=== PATIENT | male | born 1950 | race Caucasian/White ===

== ENCOUNTER 2025-02-06 07:39 | Inpatient (IN) | payer MEDICARE, SELFPAY ==
[2025-02-06] VITALS (21 sets, daily range): BP systolic 164–190; BP diastolic 60–84; PULSE 66–89; RESP 10–22; TEMP 35.9–36.7; O2SAT 96–100; BMI 23.3
--- NOTE | ~2025-02-06 | XR_ITS ---
EXAMINATION: XR chest 1V portable 02/06/2025 14:16 INDICATION: Right lower rib pain PROCEDURE: AP portable chest COMPARISON: No prior studies for comparison. FINDINGS: The lungs are clear. The cardiomediastinal silhouette is within normal limits. There are no pleural effusions. There is no pneumothorax suspected. IMPRESSION: 1: NO ACUTE CARDIOPULMONARY DISEASE. Reviewed, dictated and finalized at location B.
--- NOTE | ~2025-02-06 | XR_ITS ---
XR abdomen/kub 1V 02/10/2025 10:19 Indication: Constipation Procedure: KUB Comparison: No prior studies for comparison. Findings: Moderate colonic fecal loading. Nonobstructive bowel gas pattern. Lung bases unremarkable. No abnormal calcifications. Severe lumbar spondylosis with levoscoliosis. Impression: 1: Fecal impaction of the colon. Reviewed, dictated and finalized at location A. Impression: 1: Fecal impaction of the colon.
--- NOTE | ~2025-02-06 | XR_ITS ---
Exam: Abdomen 1V HISTORY: Constipation COMPARISON: 02/10/2025. Reference is also made to a CT examination of the abdomen and pelvis dated 01/16 TECHNIQUE: Supine images of the abdomen FINDINGS: Multiple loops of dilated colon are identified with mural thickening. Fecal stasis is identified within the descending colon. Air is identified within the rectum. Bowel gas pattern is otherwise nonspecific and non-obstructive. There is no free air or deep sulci. No pathologic calcifications are seen. IMPRESSION: Nonspecific, nonobstructive bowel gas pattern with mural thickening and fecal stasis in the colon. Reviewed, dictated and finalized at location A. IMPRESSION: Nonspecific, nonobstructive bowel gas pattern with mural thickening and fecal s tasis in the colon.
--- NOTE | ~2025-02-06 | XR_ITS ---
EXAMINATION: XR_ENEMABAC_CR DATE: 02/13/2025 11:41 INDICATION: Incomplete colonoscopy. Constipation. TECHNIQUE: A chief credit officer radiograph was obtained. A catheter was inserted into the patient's rectum. Contra st was infused by gravity. Gas was infused by hand pump. Fluoroscopic spot images and conventional ra diographs were obtained. Fluoroscopy exposure time was 3.6 minutes. A total of 60 fluoroscopic images and 19 overhead radiographs were obtained. Total DAP was 108 Gycm^2. COMPARISON: CT dated 02/06/2025 FINDINGS: There is prominent redundancy of the colon with significant tortuosity along the sigmoid, transverse and descending colon. This results in a large amount amount of residual contrast in the colon and sub optimal opacification of the cecum on the earlier images. There is also small amount of residual fecu lent material within the cecum. No strictures, diverticula, polyps or other mucosal irregularities id entified. Although the current study is mildly limited due to technical reasons as detailed above, im aging from prior CT demonstrates distention of the colon proximal to the sigmoid colon by relatively low density stool particularly at the cecum along the good assessment of the colonic wall thickness w hich appears uniformly thin with no soft tissue density polypoid lesions identified particularly in t he region most limited in the current study. IMPRESSION: 1. Significant redundancy of the otherwise normal-appearing colon which demonstrates a tortuous cours e. Specifically no strictures, diverticula, polyps or other mucosal irregularities identified. Reviewed, dictated and finalized at location A. IMPRESSION: 1. Significant redundancy of the otherwise normal-appearing colon which demonst rates a tortuous course. Specifically no strictures, diverticula, polyps or oth er mucosal irregularities identified.
--- NOTE | ~2025-02-06 | CT_ITS ---
EXAMINATION: CT abdomen pelvis w con DATE: 02/06/2025 09:10 INDICATION: Right flank pain TECHNIQUE: Computed tomography (CT) of the abdomen and pelvis was performed with 100 mL Omnipaque-350 intravenous contrast. Automated exposure control and iterative reconstruction technique were employe d. The dose-length product was 491.76 mGy-cm. COMPARISON: None FINDINGS: Lung bases are clear. Heart size is normal. No pericardial or pleural effusion. Small sliding-type hi atal hernia. Liver, gallbladder, spleen, pancreas, bilateral adrenal glands and right kidney are norm al. 12 mm cyst in the left kidney. Large amount of stool throughout the colon most prominent at the c ecum suggestive of constipation. No dilated bowel to suggest obstruction. Bladder diverticulum which could relate to chronic outlet obstruction from the enlarged prostate. No free intraperitoneal gas or fluid. No pathologically enlarged abdominal or pelvic lymphadenopathy. Mild lumbar levoscoliosis wit h severe spondylosis. IMPRESSION: 1. Large amount of colonic stool particularly at the cecum consistent with constipation. No other acu te intra-abdominal/pelvic process. 2. Small sliding-type hiatal hernia. 2. Bladder diverticulum which may be secondary to chronic outlet obstruction from the enlarged prosta te. Reviewed, dictated and finalized at location A. IMPRESSION: 1. Large amount of colonic stool particularly at the cecum consistent with cons tipation. No other acute intra-abdominal/pelvic process. 2. Small sliding-type hiatal hernia. 2. Bladder diverticulum which may be secondary to chronic outlet obstruction fr om the enlarged prostate.
--- OUTSIDE RECORDS SUMMARY | 2025-02-06 07:42 | XMS_ITS | Clinical Summary ---
Author Organization [facility] Address [address] [facility] [place] [address] Care Team Providers Care Sulfonator Operator Name Role Phone Unavailable Primary Care Provider Unavailabl e Source Comments [facility],non-owned Affiliates and Associated Physician Practices is amultiple site organization consisting of ambulatory clinics and hospital sitesin [place], [place], [place] and [place]. This disclosure is being madepursuant to the Care Everywhere program and may not contain all information available regarding this patient. 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 Gender Identity Not on file Sexual Orientation Not on file Plan of Treatment Health Maintenance Due Date Last Done Comments COLOGUARD (AGES 45-75) - COL ON CA SCREENING 1949 COLON MONITORING 1949 COLONOSCOPY - COLON CA SCREENING 1949 CT COLONOGRAPHY - COLON CA SCREENING 1950 Colorectal Cancer Screening 1950 FIT - COLON CA SCREENING 1949 FLEX SIG - COLON CA SCREENING 1949 LIPID TESTING 1950 HEPATITIS C SCREENING 11/13/1967 DTAP/TDAP/TD VACCINES (1 - Tdap) 1968 PNEUMOCOCCAL VACCINE 50+ (1 of 1 - PCV) 11/18/1999 ZOSTER VACCINE (1 of 2) 11/18/1999 COVID-19 VACCINE ( - 2023-2 5 season) 2024 DEPRESSION SCREENING 09/17/2024 Respiratory Syncytial Virus (RSV) Vaccine Pt: or over 60 yrs (1 - 1-dose 75+ series) 2024 INFLUENZA VACCINE (Season Ended) 2025 HEPATITIS B VACCINE Aged Out No longe r eligible based on patient's age to complete this topic HIB VACCINE Aged Out No longer eligi ble based on patient's age to complete this topic HPV VACCINE Aged Out No longer eligi ble based on patient's age to complete this topic MENINGOCOCCAL (Group B) VACC INE SHARED DECISION-MAKING Aged Out No longer eligibl e based on patient's age to complete this topic MENINGOCOCCAL GROUPS A/C/Y/W VACCINE Aged Out No longer eligible b ased on patient's age to complete this topic Insurance [facility] MANAGED MEDICARE ADV
--- OUTSIDE RECORDS SUMMARY | 2025-02-06 07:42 | XMS_ITS | Encounter Summary ---
Author Organization [facility] Address [address] [facility] [place] [address] Care Team Providers Care Weather Forecaster Name Role Phone Unavailable Primary Care Provider Unavailabl e Encounter Details Date Type Department Care Team (Late st Contact Info) Description 09/02/2020 Lab Requisition [facility] DermPath Lab [address] [facility] [facility] [address] [place] [id number] [place] [address] [place] [address] Social History Tobacco Use Types Packs/Day Years Used Date Smoking Tobacco: Never Assessed Sex and Gender Information Value Date Recorded Sex Assigned at Not on file Legal Sex Male 12:30 PM CLIMATE CHANGE ANALYST Gender Identity Not on file Sexual Orientation Not on file documented as of this encounter Plan of Treatment Not on file documented as of this encounter Procedures Procedure Name Priority Date/Time Associated Diagnosis Comments DERMATOPATHOLOGY Routine 09/02/2020 12:0 0 AM CLIMATE CHANGE ANALYST documented in this encounter Results * DERMATOPATHOLOGY (09/02/2020 12:00 AM CLIMATE CHANGE ANALYST) Case Report Dermatopathology Report Case: [id number] Authorizing Provider: Griselda Gordon MD Collected: 09/02/2020 12:00 AM Ordering Location: [facility] DermPath Lab Received: 09/02/2020 01:11 PM Pathologist: John Harvey MD Specimen: Skin, left anterior medial distal upper arm 0 1:19 PM CLIMATE CHANGE ANALYST DERMATOPATHOLOGY LABORATORY Final Diagnosis Specimen A. 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 . 0 1:19 PM [facility] DERMATOPATHOLOGY LABORATORY Gross Description Specimen A: Received is one formalin filled container labeled with the patient's name and designated left anterior medial distal upper arm. The specimen consists of a shave biopsy measuring [id number]. Jar 0. 0 1:19 PM [facility] DERMATOPATHOLOGY LABORATORY Microscopic Description Specimen A. SKIN, left anterior medial distal upper arm: The epidermis shows parakeratosis, full thickness disorderly maturation of keratinocytes, mitoses at different levels, and dyskeratotic cells. There is a column of marked compact hyperkeratosis. 0 1:19 PM [facility] DERMATOPATHOLOGY LABORATORY Disclaimer An external and internal positive and negative controls are appropriate for the histochemical, immunohistochemical and immunofluorescence stain(s) in this case (if any), except where stated explicitly. The performance characteristics of the stain(s) cited in this report were developed and its performance characteristic determined by the Dermatopathology Laboratory at [facility], directed by Dr. Chago Harvey. These tests need not be, and therefore are not, approved by the [place] Food and Drug Administration. The tests are used for clinical purposes. Billing Codes Specimen Charges Stain Charges 34507 1 0 1:19 PM [facility] DERMATOPATHOLOGY LABORATORY Embedded Images 0 1:19 PM [facility] DERMATOPATHOLOGY LABORATORY Pathology/Cytolog y TISSUE SPECIMEN FROM SKIN / Unknown 09/02/2020 09/02/2020 1:11 PM [facility] us Griselda Gordon MD LAB - PATHOLOGY/CYTOLOGY ORDERABLES Final Result DERMATOPATHOLOGY LABORATORY [facility] - Department of Dermatology [address], [address] [phone] documented in this encounter Visit Diagnoses Not on filedocumented in this encounter
--- OUTSIDE RECORDS SUMMARY | 2025-02-06 07:43 | XMS_ITS | Clinical Summary ---
Author Organization [facility] [address] [facility] lto Address [address] [place] [address] Care Team Providers Care Publications Inspector Name Role Phone Mendy Howe MD Primary Care Provider [phone] Allergies No known active allergies Medications aspirin 81 mg chewable tablet chew 1 tablet by oral route every day 0 0 5 Active multivitamin capsule Take 1 capsule by mouth daily Active ketoprofen (ORUDIS) 75 mg capsule Take 1 capsule (75 mg total) by mouth 4 (four) times a day as needed for pain 30 capsule 1 2 Active ipratropium (ATROVENT) 21 mcg (0.03 %) nasal spray Administer 2 sprays into each nostril every 12 (twelve) hours 30 mL 3 3 Active OneTouch Delica Plus Lancet 30 gauge misc USE TO TEST BLOOD SUGAR DAILY. 100 each 3 4 Active omeprazole (PriLOSEC) 20 mg capsule Take 1 Capsule (20 mg) by mouth daily. 90 capsule 3 4 Active oxyBUTYnin (DITROPAN) 5 mg tablet Take 1 tablet (5 mg total) by mouth 3 (three) times a day 30 tablet 1 4 04/22/20 25 Active metFORMIN (GLUCOPHAGE) 500 mg tablet TAKE 2 TABLETS BY MOUTH WITH EACH MORNING MEAL AND 1 TABLET BY MOUTH WITH EACH EVENING MEAL 270 tablet 3 4 Active benazepriL (LOTENSIN) 20 mg tablet TAKE 1 TABLET DAILY 90 tablet 3 5 Active verapamil SR (CALAN SR) 120 mg CR tablet TAKE 1 TABLET NIGHTLY 90 tablet 3 5 Active glipiZIDE (GLUCOTROL) 5 mg tablet Take 1 tablet (5 mg total) by mouth 2 (two) times a day before breakfast and lunch 180 tablet 3 5 Active SITagliptin phosphate (Januvia) 100 mg tablet Take 1 tablet (100 mg total) by mouth daily 90 tablet 3 5 Active OneTouch Ultra Test strip USE TO TEST BLOOD SUGAR TWICE DAILY DIRECTED 200 strip 5 Active tamsulosin (FLOMAX) 0.4 mg extended release capsuleIndicati ons:Urinary Hesitancy Take 1 capsule (0.4 mg total) by mouth daily 90 capsule 5 Active Active Problems Problem Noted Date Diagnosed Date Overactive bladder 10/28/2024 Assessment & Plan (10/28/2024 10:30 AM SALES REPRESENTATIVE RAW FIBERS): NO sig change, no hematuria and will follow response. 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 Must bill annually to remove from statin quality measure. Assessment & Plan (10/28/2024 10:31 AM SALES REPRESENTATIVE RAW FIBERS): REvioewed prior myalgias and arthalgias. NO new skin lesions. Prostate cancer screening 10/23/2023 Hypertension associated with diabetes 03/23/2006 Overview (12/22/2016): Hypertension Assessment & Plan (10/28/2024 10:30 AM SALES REPRESENTATIVE RAW FIBERS): COntinues on benazepril and verapamil SR. WIll follow response. Type 2 diabetes mellitus with hyperlipidemia 03/2006 Overview (01/22/2025 5:12 PM CDT): Provider to bill Statin myopathy (G72.0) with assessment/plan in note at upcoming visit annually to remove patient from [employer] Statin Gap measure(s). >>OVERVIEW FOR TYPE 2 DIABETES MELLITUS (HCC) WRITTEN ON 12/22/2016 3:59 AM BY MENDY HOWE MD Type 2 DM Assessment & Plan (01/22/2025 5:12 PM CDT): >>ASSESSMENT AND PLAN FOR TYPE 2 DIABETES MELLITUS WITH HYPERLIPIDEMIA (HCC) WRITTEN ON 10/28/2024 10:31 AM BY MENDY HOWE MD Patient with marked muscle soreness with statin. >>ASSESSMENT AND PLAN FOR TYPE 2 DIABETES MELLITUS (HCC) WRITTEN ON 10/28/2024 10:30 AM BY MENDY HOWE MD COntinues on triple therapy to include sitagliptin, metformin and glipizde. No hypoglycemia and will follow response. Denies any sypmtomatic changes. Excellent glycemic control. Encounters Date Type Department Care Team Description 02/05/2025 Nurse Triage [facility] [address] [address] Lynn Tanner RN 02/03/2025 Telephone [facility] [address] [address] Sowmya Yung Unsuccessful Phone Call 1 ([employer] dm ey exam) 01/26/[address] [address] Janiya Kaiser MA Chart Review (Med adherence) 01/22/2025 [facility] Clinical Pharmacist [address] [address] Macey Woo RPh 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/2025 [facility] Medication Access [address] [address] Anuradha Lopez CPhT 12/22/2024 Telephone [facility] Primary Care at [address] [address] Mendy Howe MD April [address] Howe cancelled 12/19/2024 2:00 PM CDT Lab [facility] Out[facility] Lab at [address] [address] Prostate cancer screening (Primary Dx); Overactive bladder 12/19/2024 1:06 PM CDT - 12/19/2024 11:59 PM CDT Hospital Encounter [address] [address] Urinary hesitancy; Prostate cancer screening Discharge Disposition: Discharge to home or self care 12/16/2024 Patient Message [facility] Primary Care at [address] [address] Mendy Howe MD Trouble peeing from Last 3 Months Immunizations Immunization Administration Dates Next Due Influenza, Live, Intranasal, Quadrivalent 07/01/2014,07/01/2014 Influenza, Quad, Adjuvantate d, Intramuscular 06/17/2020 Influenza, Quadrivalent, Hig h Dose, Preservative Free, Intrr 08/02/2023,07/04/2022 Influenza, Quadrivalent, Spl it, Preservative Free, Intramuscular 06/17/2020 Influenza, Split 06/26/2013 Influenza, Trivalent, Adjuva nted, Intramuscular 06/27/2024,07/11/2019,07/05/2018,07/05,07/05/2018 Influenza, Trivalent, High D ose, Split, Preservative Free, Intramuscular 08/01/2017,06/27/2016,06/27/2016 Influenza, Trivalent, IM (MDV) 06/23/2015 Influenza, Unspecified 07/18/2021,2019,06/17/2020,07/11,07/06/2018,08/01/2017,08/01/2017 Moderna SARS-CoV-2 Monovalen t Vaccination (12+ YRS) 04/11/2022 Pneumococcal Conjugate PCV 13 06/27/2016, 016 Pneumococcal Conjugate, Unspecified 08/01/2017 Pneumococcal Polysaccharide PPV23 08/01/2017 ZOSTER LIVE 08/30/2016,08/30/2016 Surgical History Surgery Date Site/Laterality Comments CATARACT EXTRACTION, BILATERAL Medical History Medical History Date Comments Type 2 diabetes mellitus (HCC) D iabetes type 2; Comments: NATALIA 03/23/2015 - Hx Other Medical hyperlipidemia; Comments: NATALIA 03/23/2015 - Hypertension Hypertension Hyperlipidemia Family History Medical History Relation Name Comments Heart disease Brother Rohith Prostate cancer Brother Rohith benign essential Brother Rohith Prostate cancer Father Cancer, pros [place]; Coronary artery disease Mother Leonela nary artery disease; Diabetes type II Mother Diabetes me llitus type 2; Melanoma Sister Relation Name Status Comments Brother Rohith Alive Father Mother Sister (Age 68) Social History Tobacco Use Types Packs/Day Years Used Date Smoking Tobacco: Never Smokeless Tobacco: Never Alcohol Use Standard Drinks/Week Comments Yes 0 (1 standard drink = 0.6 oz pur e alcohol) PHQ-2 Answer Date Recorded PHQ-2 Total Score (If total score is 3 or more points, staff should administer the PHQ-9) 0 10/28/2024 Sex and Gender Information Value Date Recorded Sex Assigned at Not on file Legal Sex Male 8:40 AM SALES REPRESENTATIVE RAW FIBERS Gender Identity Not on file Sexual Orientation Not on file Obstetrics History Last Filed Vital Signs Vital Sign Reading Time Taken Comments Blood Pressure 128/70 10/28/2024 10:13 AM SALES REPRESENTATIVE RAW FIBERS Pulse 70 10/28/2024 10:13 AM SALES REPRESENTATIVE RAW FIBERS Temperature 36.8 C (98.2 F) 10/28/2024 10:13 AM SALES REPRESENTATIVE RAW FIBERS Respiratory Rate 14 03/28/2022 10:04 AM CDT Oxygen Saturation 98% 10/28/2024 10:13 AM SALES REPRESENTATIVE RAW FIBERS Inhaled Oxygen Concentration - - Weight 79.1 kg (174 lb 4.8 oz) 10/28/2024 10:13 AM SALES REPRESENTATIVE RAW FIBERS Height 182.9 cm (6') 10/28/2024 10:13 AM SALES REPRESENTATIVE RAW FIBERS Body Mass Index 23.64 10/28/2024 10:13 AM SALES REPRESENTATIVE RAW FIBERS Plan of Treatment Health Maintenance Due Date Last Done Comments Hepatitis C Screening 1950 DTaP/Tdap/Td Vaccine (1 - Tdap) 1960 Hepatitis B Screening 11/18/1967 Zoster Vaccine (2 of 3) 10/25/2016 08/30/2016, 08/30 Foot Exam 12/13/2022 12/13/2021, 04/18, 07/22/2019, Additional history exists Well Visit 65+ 10/24/2023 10/24/2022, 03/17, 03/01/2021, Additional history exists Covid-19 Vaccine (2 - 2023-2 5 season) 2024 04/11/2022 Hemoglobin A1C 04/20/2025 10/21/2024, 03/19, 10/22/2023, Additional history exists Dilated Eye Exam 05/16/2025 05/16/2024, , 03/31/2021, Additional history exists Albumin Creatinine Ratio, Urine 10/21/2025 10/21/2024, 04/17/2023, 03/24/2022, Additional history exists Lipid Panel 10/21/2025 10/21/2024, 03/19, 10/22/2023, Additional history exists eGFR 10/21/2025 10/21/2024, 03/19, 10/22/2023, Additional history exists Depression Screening 10/28/2025 10/28/2024, 10/23/2023, 04/24/2023, Additional history exists Fall Risk Assessment 10/28/2025 10/28/2024, 04/22/2024, 10/23/2023, Additional history exists Colon Cancer Screening-Colonoscopy 06/02/2026 06/02/2016, 06/02/2016 Prostate Cancer Screening-PSA 12/19/2026, 04/15/2024, 10/19/2022, Additional history exists Colon Cancer Screening-CT Colonography Discontinued 06/02/2016, 06/02/2016 Colon Cancer Screening-DNA Stool Discontinued 06/02/20 16, 06/02/2016 Colon Cancer Screening-FIT Discontinued 06/02/2016, Colon Cancer Screening-Sigmoidoscopy Discontinued 06/02/2016, 06/02/2016 Pneumococcal vaccine 65+ Completed 017, 08/01/2017, 06/27/2016, Additional history exists Influenza Vaccine Completed 06/27/2024, , 07/04/2022, Additional history exists Procedures Procedure Name Priority Date/Time Associated Diagnosis Comments PSA SCREEN Routine 12/19/2024 1:06 PM CDT Urinary hesitancy Prostate cancer screening EGFR Routine 10/21/2024 9:26 AM SALES REPRESENTATIVE RAW FIBERS Type 2 diabetes mellitus with hyperglycemia, without long-term current use of insulin (HCC) HEMOGLOBIN A1C Routine 10/21/2024 9:26 AM SALES REPRESENTATIVE RAW FIBERS Type 2 diabetes mellitus with hyperglycemia, without long-term current use of insulin (HCC) LIPID PANEL Routine 10/21/2024 9:26 AM SALES REPRESENTATIVE RAW FIBERS Type 2 diabetes mellitus with hyperglycemia, without long-term current use of insulin (HCC) ALBUMIN CREATININE RATIO, URINE Routine 10/21/2024 9:26 AM SALES REPRESENTATIVE RAW FIBERS Type 2 diabetes mellitus with hyperglycemia, without long-term current use of insulin (HCC) DIABETIC EYE EXAM Routine 05/16/2024 4:3 6 PM CDT COLONOSCOPY IMAGES 06/02/2016 from Last 3 Months or Most Recently Relevant to Health Maintenance Results * (ABNORMAL) PSA screen (12/19/2024 1:06 PM CDT) PSA-Total 10.20(H) <=6.20 ng/mL Comment: Interpretive Data AGE SEX REFERENCE INTERVAL 0 minutes-150 years Female None 0 minutes-49 years Male None 50-59 years Male 0-3.90 60-69 years Male 0-5.40 70-79 years Male 0-6.20 80-150 years Male 0-6.20 The Rory PSA Total assay procedure was used. Results from different manufacturers or methods may not be comparable. Serial testing should be performed using the same method. Current interpretive data last revised 22. Blood 12/19/2024 1:06 PM CDT 12/19/2024 10:06 PM CDT us Mendy Howe MD LAB BLOOD ORDERABLES Fabiana gallegos Result JACKELINE [address] [place] [address] * eGFR (10/21/2024 9:26 AM SALES REPRESENTATIVE RAW FIBERS) eGFR 74 >=60 mL/min/1. 73 m2 Comment: Interpretive Data Reference Interval Normal >/= 90 mL/min/1.73m2 Mildly decreased* 60 - 89 mL/min/1.73m2 Mildly to moderately decreased 45 - 59 mL/min/1.73m2 Moderately to severely decreased 30 - 44 mL/min/1.73m2 Severely decreased 15 - 29 mL/min/1.73m2 Kidney Failure < 15 mL/min/1.73m2 *Relative to young adult level Estimated glomerular filtration rate is determined by the 2020 CKD-EPI equation recommended by the National Kidney Foundation (A Unifying Approach to GFR Estimation: Recommendations of the NKF-ASK Task Force on Reassessing the Inclusion of Race in Diagnosing Kidney Disease, JASN 2020). The CKD-EPI equation should not be used for patients with unstable renal function and has not been validated in children and those over 70. Current interpretive data was last reviewed 2021. Blood 10/21/2024 9:26 AM SALES REPRESENTATIVE RAW FIBERS 10/21/2024 3:58 PM SALES REPRESENTATIVE RAW FIBERS Mendy Howe MD LAB BLOOD ORDERABLES Fabiana l Result Performing Organization Address [facility] de Phone Number JACKELINE [id number] Department [place] [address] * Albumin Creatinine Ratio, Urine (10/21/2024 9:26 AM SALES REPRESENTATIVE RAW FIBERS) Albumin Ur <12.0 mg/L Comment: Interpretive Data No reference range established. Current interpretive data was last revised 2019. Creatinine Ur 68.7 mg/dL JACKELINE ROTHMAN Comment: Interpretive Data No reference range established. Current interpretive data was last revised 2019. Albumin Creatinine Ratio, Ur <17 1 - 29 mg/g JACKELINE ROTHMAN Urine 10/21/2024 9:26 AM SALES REPRESENTATIVE RAW FIBERS 10/21/2024 3:50 PM SALES REPRESENTATIVE RAW FIBERS Mendy Howe MD LAB URINE ORDERABLES Fabiana l Result Performing Organization Address City/[facility] de Phone Number JACKELINE ROTHMAN [address] Department [place] [address] * (ABNORMAL) Hemoglobin A1c (10/21/2024 9:26 AM SALES REPRESENTATIVE RAW FIBERS) Hgb A1C 6.1(H) 4.0 - 5.6 % Estimated Average Glucose 128 mg/dL JACKELINE ROTHMAN Comment: The ADA recommends reporting an estimated Average Glucose (eAG) with all Hemoglobin A1c results using the equation derived from a study of 507 normal and diabetic adults. Minority populations were underrepresented and children were not included. (Diabetes Care 31:6065-0738, 2008). The eAG is not equivalent to a fasting glucose. Blood 10/21/2024 9:26 AM SALES REPRESENTATIVE RAW FIBERS 10/21/2024 3:50 PM SALES REPRESENTATIVE RAW FIBERS Mendy Howe MD LAB BLOOD ORDERABLES Fabiana l Result Performing Organization Address [facility] de Phone Number JACKELINE ROTHMAN [address] Department [place] [address] * Lipid panel (10/21/2024 9:26 AM SALES REPRESENTATIVE RAW FIBERS) Pathologist [facility] Cholesterol 167 30 - 199 mg/dL Comment: Interpretive Data Ages < or = 19 years Acceptable: <170 mg/dL Borderline high: 170-199 mg/dL High: >or= 200 mg/dL Ages > or = 20 years Desirable: <200 mg/dL Borderline high: 200-239 mg/dL High: >or= 240 mg/dL Literature References: 1. Expert Panel on Integrated Guidelines for Cardiovascular Health and Risk Reduction in Children and Adolescents. Pediatrics 2011;128:S213 2. NCEP Expert Panel. Circulation 2004;110:227 Current Interpretive Data was last revised on 2018. Triglycerides 62 <=149 mg/dL JACKELINE ROTHMAN Comment: Interpretive Data Ages < or = 9 years Acceptable: <75 mg/dL Borderline high: 75-99 mg/dL High: >or= 100 mg/dL Ages 10 to 20 years Acceptable: <90 mg/dL Borderline high: 90-129 mg/dL High: >or= 130 mg/dL Ages > or = 20 years Desirable: <150 mg/dL Borderline high: 150-199 mg/dL High: 200-499 mg/dL Very high: >or= 499 mg/dL Literature References: 1. Expert Panel on Integrated Guidelines for Cardiovascular Health and Risk Reduction in Children and Adolescents. Pediatrics 2011;128:S213 2. NCEP Expert Panel. Circulation 2004;110:227 Current Interpretive Data was last revised on 2018. HDL 42 >=40 mg/dL JACKELINE ROTHMAN Comment: Interpretive Data Ages < or = 19 years Acceptable: >45 mg/dL Borderline low: 40-45 mg/dL Low: <40 mg/dL Ages > or = 20 years Desirable: >or= 60 mg/dL Low: <40 mg/dL Literature References: 1. Expert Panel on Integrated Guidelines for Cardiovascular Health and Risk Reduction in Children and Adolescents. Pediatrics 2011;128:S213 2. NCEP Expert Panel. Circulation 2004;110:227 Current Interpretive Data was last revised on 2018. LDL, calculated 113 <=129 mg/dL JACKELINE ROTHMAN Comment: Interpretive Data Ages < or = 19 years Acceptable: <110 mg/dL Borderline high: 110-129 mg/dL High: >or= 130 mg/dL Ages > or = 20 years Optimal: <100 mg/dL Near optimal: 100-129 mg/dL Borderline high: 130-159 mg/dL High: >160 mg/dL Calculated using the Milton LDL-C estimating equation. This equation was implemented on 2024. Prior to this date LDL-C was estimated using the Friedewald equation. Literature References: 1. Expert Panel on Integrated Guidelines for Cardiovascular Health and Risk Reduction in Children and Adolescents. Pediatrics 2011;128:S213 2. NCEP Expert Panel. Circulation 2004;110:227 3. Milton Pedro al. SANJANA Cardiol. 2020 January 15;5(5):540-548. doi: 10.1001/jamacardio.2020.0013 Current Interpretive Data was last revised on 2024. Non-HDL Cholesterol 125 mg/dL JACKELINE ROTHMAN Comment: Interpretive Data Ages < or = 19 years Acceptable: <120 mg/dL Borderline high: 120-144 mg/dL High: >145 mg/dL Ages > or = 20 years When triglycerides are >200 mg/dL, Non-HDL cholesterol is a secondary target of therapy with treatment goals that are 30 mg/dL greater than the LDL cholesterol target. Literature References: 1. Expert Panel on Integrated Guidelines for Cardiovascular Health and Risk Reduction in Children and Adolescents. Pediatrics 2011;128:S213 2. NCEP Expert Panel. Circulation 2004;110:227 Current Interpretive Data was last revised on 2018. Chol/HDL ratio 4 JACKELINE ROTHMAN Blood 10/21/2024 9:26 AM SALES REPRESENTATIVE RAW FIBERS 10/21/2024 3:50 PM SALES REPRESENTATIVE RAW FIBERS Mendy Howe MD LAB BLOOD ORDERABLES Fabiana l Result JACKELINE [address] Department [place] [address] * Diabetic Eye Exam (05/16/2024 4:36 PM CDT) Historical Provider HEALTH MAINTENANCE Final Result * COLONOSCOPY IMAGES (06/02/2016) Anatomical Region Laterality Modality Other Narrative 06/02/2016 Ordered by an unspecified provider. Historical Provider GI PROCEDURE ORDERABLES F inal Result from Last 3 Months or Most Recently Relevant to Health Maintenance Insurance T MEDICARE Care Teams Publications Inspector Relationship Specialty Start Date End Date Mendy Howe MD [address] [place] [address] PCP - General 12/15/16
--- OUTSIDE RECORDS SUMMARY | 2025-02-06 07:43 | XMS_ITS | Continuity of Care Document ---
Author Organization [facility] Address [address] [place] [address] [place] [address] Phone Care Team Providers Care Air Intercept Controller Name Role Phone Elaine Cardenas OD Unavailable Unavailable Allergies, Adverse Reactions, Alerts Substance Reaction Status Criticality No Known Allergies Active No Inform ation Medications Medication Instructions Dosage Effective Dates (start - stop) Status Comments metformin 500 mg tablet take 1 tablet by oral route 2 times every day with morning and evening meals 500 MG - Active verapamil 120 mg tablet take 1 tablet by oral route 3 times every day 120 MG - Active aspirin 81 mg tablet,delayed release take 1 tablet by oral route every day 81 MG - Active Januvia 100 mg tablet take 1 tablet by oral route every day 100 MG - Active benazepril 20 mg-hydrochlorothiaz tyree 12.5 mg tablet take 1 tablet by oral route every day 1.00 tablet - Active omeprazole 20 mg tablet,delayed release - Active Procedures Procedure Date Fundus Photography W/ Report Eye Exam, New Patient Advance Directives Directive Yes / No Effective Date File Name Other Directive No N/A N/A WARNING:The information contained in this section is historical and is provided for information only and does not constitute a legal document or any assurance that the information is still accurate. Please verify the information with the wiggins of the legal document before using it for clinical purposes. Encounters Encounter Description Practice Location Reason(s) For Visit Diagnoses Date Provider Providers Copied on Encounter [facility], [address] [place] [address] [address], [place], [place], [id number], tel:[phone] [address] Christian KIM Professional diabetic eye exam (chief complaint) Type 2 diab with mild nonp rtnop without macular edema, biPresence of intraocular lensDry eye syndrome of bilateral lacrimal glands 4 Ronald OD Elaine. [address], [address], [place], [place], [id number], . tel:[phone] Referring Provider: Elaine Cardenas [place] L, [address], [place], [address] . tel:[phone] [facility], [address], [place], [place], [id number], [place] tel:[phone] [place] No Information 4 Ronald OD Elaine. [address], [address], [place], [place], [id number], [place]. tel:[phone] Family History Family Member Type Diagnosis Age At Onset Problem Family history of Diabetes m alexx Payers Payer name Insurance type Covered constitution party ID Niyahgriffin olmanilda(s) Aetna [facility] Adv Prime CI [id number] Social History Type Description Quantity Date Captured Comments Alcohol Use Details Caffeine Use Details Tobacco Use Status Current non-smoker Smoking Status Never smoker Non-Smoking Tobacco Use Details : No Details Available : No Details Available Sex Male Chief Complaint And Reason For Visit From encounter dated '05/16/2024 11:00'. diabetic eye exam (chief complaint). Description: The 73 year old patient presents for a complete Type II diabetic exam ou. Patient is pseudo ou. BS was 126 this am and last A1C was 6.5 and PCP treats DM. Patient wears OTC reading glasses. Patient denies any changes in vision since CE. Pt notes dryness worse in the left eye, uses refresh PF prn Reason For Referral Reason For Referral No Information Plan Of Treatment Date Type Action Status Patient Education Diabetic Retinopathy: C are Instructions completed History Of Present Illness Encounter Date Complaint History Of Prese nt Illness diabetic eye exam The 73 year ol d patient presents for a complete Type II diabetic exam ou. Patient is pseudo ou. BS was 126 this am and last A1C was 6.5 and PCP treats DM. Patient wears OTC reading glasses. Patient denies any changes in vision since CE. Pt notes dryness worse in the left eye, uses refresh PF prn Functional Status Date Functional Assessmen t No Information Instructions Date Instruction Additional Infor cecilia Impression/Plan Assessments Type Assessment Date assessment Type 2 diab with mild nonp rtnop without macular edema, bi assessment Presence of intraocular lens Apr assessment Dry eye syndrome of bilateral la crimal glands Patient Care Teams Name Effective Dates (start - stop) Status Members No Information
--- OUTSIDE RECORDS SUMMARY | 2025-02-06 07:43 | XMS_ITS | Referral Summary ---
Author Organization [facility] [address] [facility] lto Address [address] [address] Care Team Providers Care Big Data Lead Name Role Phone Mendy Howe MD Primary Care Provider [phone] Encounters Date Type Department Care Team Description 02/05/2025 Nurse Triage [facility] [address] [place] [address] Lynn Tanner, GAYATHRI 02/03/2025 Telephone [facility] [address] [place] [address] Sowmya Yung Unsuccessful Phone Call 1 ([employer] dm ey exam) 01/26/[address] [address] Janiya Kaiser MA Chart Review (Med adherence) 01/22/2025 ACO Clinical Pharmacist [address] [address] Macey Woo RPh 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/2025 ACO Medication Access [address] [address] Anuradha Lopez CPhT 12/22/2024 Telephone [facility] Medical Group Primary Care at [address] [address] Mendy Howe MD April [address] Howe cancelled 12/19/2024 1:06 PM CDT - 12/19/2024 11:59 PM CDT Hospital Encounter [address] [address] Urinary hesitancy; Prostate cancer screening Discharge Disposition: Discharge to home or self care 12/19/2024 2:00 PM CDT Lab [facility] Medical [facility] Outpatient Lab at [address] [address] Prostate cancer screening (Primary Dx); Overactive bladder 12/16/2024 Patient Message [facility] Primary Care at [address] [address] Mendy Howe MD Trouble peeing from Last 3 Months Allergies No known active allergies Medications aspirin [...] 10/28/2024 Assessment & Plan (10/28/2024 10:30 AM CHIEF CRUISER): NO sig change, no hematuria and will follow response. 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 Must bill annually to remove from statin quality measure. Assessment & Plan (10/28/2024 10:31 AM CHIEF CRUISER): REvioewed prior myalgias and arthalgias. NO new skin lesions. Prostate cancer screening 10/23/2023 Hypertension associated with diabetes 03/23/2006 Overview (12/22/2016): Hypertension Assessment & Plan (10/28/2024 10:30 AM CHIEF CRUISER): COntinues on benazepril and verapamil SR. WIll [...] Denies any sypmtomatic changes. Excellent glycemic control. Immunizations Immunization Administration Dates Next Due Influenza, [...] Pneumococcal Polysaccharide PPV23 08/01/2017 [facility] 08/30/2016,08/30/2016 Social History Tobacco Use Types Packs/Day Years [...] on file Legal Sex Male 8:40 AM CHIEF CRUISER Gender Identity Not on file Sexual Orientation Not on file Last Filed Vital Signs Vital Sign Reading Time Taken Comments Blood Pressure 128/70 10/28/2024 10:13 AM CHIEF CRUISER Pulse 70 10/28/2024 10:13 AM CHIEF CRUISER Temperature 36.8 C (98.2 F) 10/28/2024 10:13 AM CHIEF CRUISER Respiratory Rate 14 03/28/2022 10:04 AM CDT Oxygen Saturation 98% 10/28/2024 10:13 AM CHIEF CRUISER Inhaled Oxygen Concentration - - Weight 79.1 kg (174 lb 4.8 oz) 10/28/2024 10:13 AM CHIEF CRUISER Height 182.9 cm (6') 10/28/2024 10:13 AM CHIEF CRUISER Body Mass Index 23.64 10/28/2024 10:13 AM CHIEF CRUISER Plan of Treatment Not on file Procedures Procedure Name Priority Date/Time Associated Diagnosis Comments PSA SCREEN Routine 12/19/2024 1:06 PM CDT Urinary hesitancy Prostate cancer screening EGFR Routine 10/21/2024 9:26 AM CHIEF CRUISER Type 2 diabetes mellitus with hyperglycemia, without long-term current use of insulin (HCC) HEMOGLOBIN A1C Routine 10/21/2024 9:26 AM CHIEF CRUISER Type 2 diabetes mellitus with hyperglycemia, without long-term current use of insulin (HCC) LIPID PANEL Routine 10/21/2024 9:26 AM CHIEF CRUISER Type 2 diabetes mellitus with hyperglycemia, without long-term current use of insulin (HCC) ALBUMIN CREATININE RATIO, URINE Routine 10/21/2024 9:26 AM CHIEF CRUISER Type 2 diabetes mellitus with hyperglycemia, without [...] 1:06 PM CDT 12/19/2024 10:06 PM CDT Mendy Howe MD LAB BLOOD ORDERABLES Fabiana gallegos Result JACKELINE [address] [address] Department of Laboratories [place] [id number] * eGFR (10/21/2024 9:26 AM CHIEF CRUISER) eGFR 74 >=60 mL/min/1. 73 m2 Comment: [...] last reviewed 2021. Blood 10/21/2024 9:26 AM CHIEF CRUISER 10/21/2024 3:58 PM CHIEF CRUISER Result [facility] Mendy Howe MD LAB BLOOD ORDERABLES Fabiana l Result Performing Organization Address [facility] de Phone Number [facility] [address] [facility] [place] [address] * Albumin Creatinine Ratio, Urine (10/21/2024 9:26 AM CHIEF CRUISER) Albumin Ur <12.0 mg/L Comment: Interpretive Data No reference range established. Current interpretive data was last revised 2019. Creatinine Ur 68.7 mg/dL [facility] Comment: Interpretive Data No reference range established. Current interpretive data was last revised 2019. Albumin Creatinine Ratio, Ur <17 1 - 29 mg/g [facility] Urine 10/21/2024 9:26 AM CHIEF CRUISER 10/21/2024 3:50 PM CHIEF CRUISER Result [facility] Mendy Howe MD LAB URINE ORDERABLES Fabiana l Result Performing Organization Address [facility] de Phone Number [facility] [address] [facility] [place] [address] * (ABNORMAL) Hemoglobin A1c (10/21/2024 9:26 AM CHIEF CRUISER) Hgb A1C 6.1(H) 4.0 - 5.6 % Estimated Average Glucose 128 mg/dL [facility] Comment: The ADA recommends reporting an estimated Average Glucose (eAG) with all Hemoglobin A1c results using the equation derived from a study of 507 normal and diabetic adults. Minority populations were underrepresented and children were not included. (Diabetes Care 31:2581-8003, 2008). The eAG is not equivalent to a fasting glucose. Blood 10/21/2024 9:26 AM CHIEF CRUISER 10/21/2024 3:50 PM CHIEF CRUISER Result [facility] Mendy Howe MD LAB BLOOD ORDERABLES Fabiana gallgeos Result [facility] [address] Department [place] [address] * Lipid panel (10/21/2024 9:26 AM CHIEF CRUISER) Cholesterol 167 30 - 199 mg/dL Comment: [...] NCEP Expert Panel. Circulation 2004;110:227 3. Milton Lopez et al. SANJANA Cardiol. 2019January 15;5(5):540-548. doi: 10.1001/jamacardio.2020.0013 Current Interpretive Data was [...] revised on 2018. Chol/HDL ratio 4 JACKELINE Blood 10/21/2024 9:26 AM CHIEF CRUISER 10/21/2024 3:50 PM CHIEF CRUISER us Mendy Howe MD LAB BLOOD ORDERABLES Fabiana gallegos Result JACK[address] [address] Department [place] [address] * Diabetic Eye Exam (05/16/2024 4:36 PM CDT) us Historical Provider HEALTH MAINTENANCE Final Result * COLONOSCOPY IMAGES (06/02/2016) Anatomical Region Laterality Modality Other Narrative 06/02/2016 Ordered by an unspecified provider. us Historical Provider GI PROCEDURE ORDERABLES F inal Result from Last 3 Months or Most Recently Relevant to Health Maintenance Insurance AETNA MEDICARE Care Teams Big Data Lead Relationship Specialty Start Date End [place] [address] PCP - General 12/15/16
--- OUTSIDE RECORDS SUMMARY | 2025-02-06 07:43 | XMS_ITS | Clinical Summary ---
Author Organization [facility] Address [address] [place] [address] Phone Care Team Providers Care Monitor Tech Name Role Phone Juan Howe MD Primary Care Provider [phone] Social History Tobacco Use Types Packs/Day Years Used Date Smoking Tobacco: Never Assessed Sex and Gender Information Value Date Recorded Sex Assigned at Not on file Legal Sex Male 10:28 PM CDT Gender Identity Not on file Sexual Orientation Not on file Plan of Treatment Health Maintenance Due Date Last Done Comments Hepatitis C Virus (HCV) Screening 1950 TdaP Immunization 1950 Colonoscopy 1994 Colorectal Cancer Screening 1994 Cologuard 11/18/1999 Immunochemical Fecal Occult Blood 11/18/1999 Pneumococcal Immunization (5 0+ years) (1 of 1 - PCV) 11/18/1999 Zoster Immunization (1 of 2) 11/18/1999 Influenza Immunization (#1) 2024 SARS-COV-2 Immunization ( - season) 2024 Respiratory Syncytial Virus (RSV) Immunization (Adult) (1 - 1-dose 75+ series) 2024 Hepatitis B Immunization Aged Out No longer eligible based on patient's age to complete this topic Meningococcal Immunization (ACWY) Aged Out No longer eligible based on patient's age to complete this topic Rotavirus Immunization Aged Out No lo nger eligible based on patient's age to complete this topic Care Teams Monitor Tech Relationship Specialty Start Date [place] [address] PCP - General Internal Medicine 03/29/16
--- OUTSIDE RECORDS SUMMARY | 2025-02-06 07:43 | XMS_ITS | Encounter Summary ---
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 States symptoms started 3-4 days ago. States it first was just a bothersome pain. Pt was taking antibiotic for UTI that he completed on Sunday. Pt is followed by urology and had US recently and was told that the bladder and kidney looked ok. The pain comes and goes and is worse with position changes. He has taken tylenol with little relief. States he has been laying around most of the day not doing much due to the pain. RN scheduled SDA tomorrow with Dr Howe at 1115 am. Care advice reviewed. Advised pt to call back if symptoms worsen or with any other concerns/questions. Pt verbalized understanding. Disposition See Today or Tomorrow in Office Reason for Disposition Age > 50 and no history of prior similar back pain Protocols Used Back [id number] * Telephone Encounter - Karina Kirby RN - 02/05/2025 3:18 PM CDT Regarding: moderate to severe pain ----- Message from December sent at 02/05/2025 3:13 PM CDT ----- Symptom Based Call Chief Complaint(s): moderate to severe pain Duration: 5 days What type of symptom(s) is the patient experiencing? Red Flag. Is the patient concerned they are experiencing a medical emergency requiring an ambulance? No Additional Comments: getting worse been bed all day // the pain is on the right side under rib cageand moves to the back / tylenol not helping Does message need to be routed? Yes-Action Needed documented in this encounter Plan of Treatment Not on file documented as of this encounter Visit Diagnoses Not on filedocumented in this encounter Care Teams Janitor Supervisor Relationship Specialty Start Date [place] [address] PCP - General 12/15/16 documented as of this encounter
[2025-02-06 08:26] LABS: Basophils Percent Auto 0.3 % (0.2-1.2); Eosinophils Absolute Auto 0.1 K/mm3 (0-0.3); Eosinophils Percent Auto 1.5 % (0-4.4); Hematocrit 36.7 % (42.0-52.0); Hemoglobin 11.7 g/dL (14.0-18.0); Immature Granulocyte Absolute 0.04 K/mm3 (0.00-0.031); Immature Granulocyte Percent A 0.5 % (0-0.5); Lymphocytes Absolute Auto 0.86 K/mm3 (0.9-3.2); Mean Corpuscular HGB Conc 31.9 g/dl (32-36); Mean Corpuscular Hemoglobin 29.2 pg (26-34); Mean Corpuscular Volume 91.5 fl (80-100); Mean Platelet Volume 8.9 fl (7.4-10.4); Monocytes Absolute Auto 0.5 K/mm3 (0.1-0.6); Monocytes Percent Auto 6.4 % (2.6-8.5); Neutrophils Absolute Auto 6.3 K/mm3 (1.3-6.7); Neutrophils Percent Auto 80.3 % (45.5-73.1); Platelet Count Result 290 k/mm3 (150-375); Red Blood Count 4.01 M/mm3 (4.6-6.20); Red Cell Distribution Width 12.2 % (11.5-14.5); White Blood Count 7.8 K/mm3 (4.5-10.0)
[2025-02-06 08:37] LABS: Add Urine Microscopic? YES; Alanine Aminotransferase 26 U/L (6-50); Albumin Level 4.4 g/dL (3.5-5.1); Alkaline Phosphatase 74 U/L (38-126); Anion Gap 8 mmol/L (4-12); Appearance Urine Clear (Clear); Aspartate Amino Transferase 27 U/L (17-59); Bacteria Urine None Seen /hpf; Bilirubin Urine Negative (Negative); Bilirubin,Total 0.5 mg/dL (0.2-1.3); Blood Urea Nitrogen 18 mg/dL (9-20); Blood Urine Negative (Negative); Calcium 8.9 mg/dL (8.4-10.2); Carbon Dioxide 24 mmol/L (22-30); Chloride 97 mmol/L (98-107); Color Urine Yellow (Yellow); Estimated CRCL calculation 76 ml/min; Estimated Glomerular Filt Rate > 60; Glucose 163 mg/dL (65-110); Glucose Urine UA 1+ mg/dL (Negative); Ketones Urine Trace mg/dL (Negative); Leukocyte Esterase Ur Negative LEU/UL (Negative); Lipase 82 U/L (23-300); Nitrate Urine Negative (Negative); Non Pathogenic Casts 0-2; Protein Urine Trace mg/dL (Negative); Sodium 129 mmol/L (137-145); Specific Grav Ur 1.024 (1.001-1.035); Squamous Epithelial Cell Urine None Seen /hpf (Few); WBC Urine 0-5 /hpf (0-3)
--- OUTSIDE RECORDS SUMMARY | 2025-02-06 08:54 | XMS_ITS | Referral Summary ---
Author Organization [facility] [address] [facility] lto Address [address] [place] [address] Care Team Providers Care Nurse Executive Name Role Phone Mendy Howe MD Primary Care Provider [phone] Encounters Date Type Department Care Team Description 02/05/2025 Nurse Triage [facility] [address] [place] [address] Lynn Tanner, GAYATHRI 02/03/2025 Telephone [facility] [address] [place] [address] Sowmya Yung Unsuccessful Phone Call 1 ([employer] dm ey exam) 01/26/[address] [address] Janiya Kaiser MA Chart Review (Med adherence) 01/22/2025 ACO Clinical Pharmacist [address] [address] Macey Woo RPh 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/2025 ACO Medication Access [address] [address] Anuradha Loepz CPhT 12/22/2024 Telephone [facility] Medical Group Primary Care at [address] [address] Mendy Howe MD April [address] Howe cancelled 12/19/2024 1:06 PM CDT - 12/19/2024 11:59 PM CDT Hospital Encounter [address] [address] Urinary hesitancy; Prostate cancer screening Discharge Disposition: Discharge to home or self care 12/19/2024 2:00 PM CDT Lab [facility] Medical [facility] Outpatient Lab at [address] [address] Prostate cancer screening (Primary Dx); Overactive bladder 12/16/2024 Patient Message [facility] Primary Care at [address] [address] Mendy Howe MD Trouble peeing [...] 10/28/2024 Assessment & Plan (10/28/2024 10:30 AM HUMAN RESOURCES COMPLIANCE MANAGER): NO sig change, no hematuria and will follow response. 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 Must bill annually to remove from statin quality measure. Assessment & Plan (10/28/2024 10:31 AM HUMAN RESOURCES COMPLIANCE MANAGER): REvioewed prior myalgias and arthalgias. NO new skin lesions. Prostate cancer screening 10/23/2023 Hypertension associated with diabetes 03/23/2006 Overview (12/22/2016): Hypertension Assessment & Plan (10/28/2024 10:30 AM HUMAN RESOURCES COMPLIANCE MANAGER): COntinues on benazepril and verapamil SR. WIll [...] on file Legal Sex Male 8:40 AM HUMAN RESOURCES COMPLIANCE MANAGER Gender Identity Not on file Sexual Orientation Not on file Last Filed Vital Signs Vital Sign Reading Time Taken Comments Blood Pressure 128/70 10/28/2024 10:13 AM HUMAN RESOURCES COMPLIANCE MANAGER Pulse 70 10/28/2024 10:13 AM HUMAN RESOURCES COMPLIANCE MANAGER Temperature 36.8 C (98.2 F) 10/28/2024 10:13 AM HUMAN RESOURCES COMPLIANCE MANAGER Respiratory Rate 14 03/28/2022 10:04 AM CDT Oxygen Saturation 98% 10/28/2024 10:13 AM HUMAN RESOURCES COMPLIANCE MANAGER Inhaled Oxygen Concentration - - Weight 79.1 kg (174 lb 4.8 oz) 10/28/2024 10:13 AM HUMAN RESOURCES COMPLIANCE MANAGER Height 182.9 cm (6') 10/28/2024 10:13 AM HUMAN RESOURCES COMPLIANCE MANAGER Body Mass Index 23.64 10/28/2024 10:13 AM HUMAN RESOURCES COMPLIANCE MANAGER Plan of Treatment Not on file Procedures Procedure Name Priority Date/Time Associated Diagnosis Comments PSA SCREEN Routine 12/19/2024 1:06 PM CDT Urinary hesitancy Prostate cancer screening EGFR Routine 10/21/2024 9:26 AM HUMAN RESOURCES COMPLIANCE MANAGER Type 2 diabetes mellitus with hyperglycemia, without long-term current use of insulin (HCC) HEMOGLOBIN A1C Routine 10/21/2024 9:26 AM HUMAN RESOURCES COMPLIANCE MANAGER Type 2 diabetes mellitus with hyperglycemia, without long-term current use of insulin (HCC) LIPID PANEL Routine 10/21/2024 9:26 AM HUMAN RESOURCES COMPLIANCE MANAGER Type 2 diabetes mellitus with hyperglycemia, without long-term current use of insulin (HCC) ALBUMIN CREATININE RATIO, URINE Routine 10/21/2024 9:26 AM HUMAN RESOURCES COMPLIANCE MANAGER Type 2 diabetes mellitus with hyperglycemia, without [...] LAB BLOOD ORDERABLES Fabiana gallegos Result [address] [address] [address] Department of Laboratories [place] [id number] * eGFR (10/21/2024 9:26 AM HUMAN RESOURCES COMPLIANCE MANAGER) eGFR 74 >=60 mL/min/1. 73 m2 Comment: [...] last reviewed 2021. Blood 10/21/2024 9:26 AM HUMAN RESOURCES COMPLIANCE MANAGER 10/21/2024 3:58 PM HUMAN RESOURCES COMPLIANCE MANAGER Result [facility] Mendy Howe MD LAB BLOOD ORDERABLES Fabiana l Result Performing Organization Address [facility] de Phone Number [facility] [address] [facility] [place] [address] * Albumin Creatinine Ratio, Urine (10/21/2024 9:26 AM HUMAN RESOURCES COMPLIANCE MANAGER) Albumin Ur <12.0 mg/L Comment: Interpretive Data No reference range established. Current interpretive data was last revised 2019. Creatinine Ur 68.7 mg/dL [facility] Comment: Interpretive Data No reference range established. Current interpretive data was last revised 2019. Albumin Creatinine Ratio, Ur <17 1 - 29 mg/g [facility] Urine 10/21/2024 9:26 AM HUMAN RESOURCES COMPLIANCE MANAGER 10/21/2024 3:50 PM HUMAN RESOURCES COMPLIANCE MANAGER Result [facility] Mendy Howe MD LAB URINE ORDERABLES Fabiana l Result Performing Organization Address [facility] de Phone Number [facility] [address] [address] [facility] [place] [address] * (ABNORMAL) Hemoglobin A1c (10/21/2024 9:26 AM HUMAN RESOURCES COMPLIANCE MANAGER) Hgb A1C 6.1(H) 4.0 - 5.6 % Estimated Average Glucose 128 mg/dL [facility] Comment: The ADA recommends reporting an estimated Average Glucose (eAG) with all Hemoglobin A1c results using the equation derived from a study of 507 normal and diabetic adults. Minority populations were underrepresented and children were not included. (Diabetes Care 31:3771-0911, 2008). The eAG is not equivalent to a fasting glucose. Blood 10/21/2024 9:26 AM HUMAN RESOURCES COMPLIANCE MANAGER 10/21/2024 3:50 PM HUMAN RESOURCES COMPLIANCE MANAGER Result [facility] Mendy Howe MD LAB BLOOD ORDERABLES Fabiana gallegos Result [facility] [address] [address] [place] [address] * Lipid panel (10/21/2024 9:26 AM HUMAN RESOURCES COMPLIANCE MANAGER) Cholesterol 167 30 - 199 mg/dL Comment: [...] ratio 4 JACKELINE Blood 10/21/2024 9:26 AM HUMAN RESOURCES COMPLIANCE MANAGER 10/21/2024 3:50 PM HUMAN RESOURCES COMPLIANCE MANAGER us Mendy Howe MD LAB BLOOD ORDERABLES Fabiana gallegos Result [address]ACK[address]INE [address] [address] [place] [address] * Diabetic Eye Exam (05/16/2024 4:36 PM CDT) us Historical Provider HEALTH MAINTENANCE Final Result * COLONOSCOPY IMAGES (06/02/2016) Anatomical Region Laterality Modality Other Narrative 06/02/2016 Ordered by an unspecified provider. us Historical Provider GI PROCEDURE ORDERABLES F inal Result from Last 3 Months or Most Recently Relevant to Health Maintenance Insurance AET[employer] MEDICARE Care Teams Nurse Executive Relationship Specialty Start Date End [place] [address] PCP - General 12/15/16
--- OUTSIDE RECORDS SUMMARY | 2025-02-06 08:54 | XMS_ITS | Encounter Summary ---
Author Organization [facility] Address [address] [place] [address] Care Team Providers Care Link And Link Knitting Machine Operator Name Role Phone Unavailable Primary Care Provider Unavailabl e Encounter Details Date Type Department Care Team (Late st Contact Info) Description 09/02/2020 Lab Requisition [facility] DermPath Lab [address] [place] [id number] [place] [address] [place] [address] Social History Tobacco Use Types Packs/Day Years Used Date Smoking Tobacco: Never Assessed Sex and Gender Information Value Date Recorded Sex Assigned at Not on file Legal Sex Male 12:30 PM DIE CUTTER APPRENTICE Gender Identity Not on file Sexual Orientation Not on file documented as of this encounter Plan of Treatment Not on file documented as of this encounter Procedures Procedure Name Priority Date/Time Associated Diagnosis Comments DERMATOPATHOLOGY Routine 09/02/2020 12:0 0 AM DIE CUTTER APPRENTICE documented in this encounter Results * DERMATOPATHOLOGY (09/02/2020 12:00 AM DIE CUTTER APPRENTICE) Case Report Dermatopathology Report Case: [id number] Authorizing Provider: Griselda Gordon MD Collected: 09/02/2020 12:00 AM Ordering Location: [facility] DermPath Lab Received: 09/02/2020 01:11 PM Pathologist: John Harvey MD Specimen: Skin, left anterior medial distal upper arm 0 1:19 PM DIE CUTTER APPRENTICE DERMATOPATHOLOGY LABORATORY Final Diagnosis Specimen A. 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 . 0 1:19 PM [facility] DERMATOPATHOLOGY LABORATORY Gross Description Specimen A: Received is one formalin filled container labeled with the patient's name and designated left anterior medial distal upper arm. The specimen consists of a shave biopsy measuring [id number]. Jar 0. 0 1:19 PM [facility] DERMATOPATHOLOGY LABORATORY Microscopic Description Specimen A. SKIN, left anterior medial distal upper arm: The epidermis shows parakeratosis, full thickness disorderly maturation of keratinocytes, mitoses at different levels, and dyskeratotic cells. There is a column of marked compact hyperkeratosis. 0 1:19 PM [facility] DERMATOPATHOLOGY LABORATORY Disclaimer An external and internal positive and negative controls are appropriate for the histochemical, immunohistochemical and immunofluorescence stain(s) in this case (if any), except where stated explicitly. The performance characteristics of the stain(s) cited in this report were developed and its performance characteristic determined by the Dermatopathology Laboratory at [facility], directed by Dr. Chago Harvey. These tests need not be, and therefore are not, approved by the [place] Food and Drug Administration. The tests are used for clinical purposes. Billing Codes Specimen Charges Stain Charges 06780 1 0 1:19 PM [facility] DERMATOPATHOLOGY LABORATORY Embedded Images 0 1:19 PM [facility] DERMATOPATHOLOGY LABORATORY Pathology/Cytolog y TISSUE SPECIMEN FROM SKIN / Unknown 09/02/2020 09/02/2020 1:11 PM [facility] us Griselda Gordon MD LAB - PATHOLOGY/CYTOLOGY ORDERABLES Final Result DERMATOPATHOLOGY LABORATORY [facility] - Department of Dermatology [address], [address] [phone] documented in this encounter Visit Diagnoses Not on filedocumented in this encounter
--- OUTSIDE RECORDS SUMMARY | 2025-02-06 08:54 | XMS_ITS | Clinical Summary ---
Author Organization [facility] Address [address] [place] [address] Care Team Providers Care Trailer Driver Name Role Phone Unavailable Primary Care Provider Unavailabl e Source Comments [facility],non-owned Affiliates and Associated Physician Practices is amultiple site organization consisting of ambulatory clinics and hospital sitesin [place], [place], [place]. This disclosure is being madepursuant to the Care Everywhere program and may not contain all information available regarding this patient. Last updated 18.[facility] Social History Tobacco Use Types Packs/Day Years Used Date Smoking Tobacco: Never Assessed Sex and Gender Information Value Date Recorded Sex Assigned at Not on file Legal Sex Male 12:30 PM CONTROL PANEL OPERATOR Gender Identity Not on file Sexual Orientation [...] patient's age to complete this topic Insurance [facility] MANAGED MEDICARE ADV
[2025-02-06] MEDS: MORPHINE SULFATE (*CRX) 2 MG/ML INJ IV PUSH (08:55)
[2025-02-06] MEDS: ONDANSETRON INJ 4 MG/2 ML VIAL IV PUSH (08:55)
--- OUTSIDE RECORDS SUMMARY | 2025-02-06 08:55 | XMS_ITS | Continuity of Care Document ---
Author Organization [facility] Address [address] [place] [address] [place] [address] Phone Care Team Providers Care Oyster Floater Name Role Phone Elaine Cardenas OD Unavailable [...] Diagnoses Date Provider Providers Copied on Encounter [facility], [address] [place] [address] [address], [place], [place], [id number], tel:[phone] [address] Christian KIM Professional diabetic eye exam (chief complaint) Type 2 diab with mild nonp rtnop without macular edema, biPresence of intraocular lensDry eye syndrome of bilateral lacrimal glands 4 Ronald OD Elaine. [address], [address], [place], [place], [id number], . tel:[phone] Referring Provider: Elaine Cardenas OD L, [address], [place], [address] . tel:[phone] [facility], [address], [place], [place], [id number], [place] tel:[phone] [address] [place] No Information 4 Ronald OD Elaine. [address], [address], [place], [place], [id number], [place]. tel:[phone] Family History Family Member Type Diagnosis Age At Onset Problem Family history of Diabetes m alexx Payers Payer name Insurance type Covered republican ID Niyahgriffin olmanilda(s) [employer] [facility] [employer] CI [id number] Social History Type Description Quantity Date Captured [...]
--- OUTSIDE RECORDS SUMMARY | 2025-02-06 08:55 | XMS_ITS | Clinical Summary ---
Author Organization [facility] [address] [facility] Address [address] [place] [address] Care Team Providers Care Forestry Technician Name Role Phone Mendy Howe MD Primary Care Provider [phone] Allergies No known active allergies Medications aspirin [...] 10/28/2024 Assessment & Plan (10/28/2024 10:30 AM PARAMEDIC INSTRUCTOR): NO sig change, no hematuria and will follow response. 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 Must bill annually to remove from statin quality measure. Assessment & Plan (10/28/2024 10:31 AM PARAMEDIC INSTRUCTOR): REvioewed prior myalgias and arthalgias. NO new skin lesions. Prostate cancer screening 10/23/2023 Hypertension associated with diabetes 03/23/2006 Overview (12/22/2016): Hypertension Assessment & Plan (10/28/2024 10:30 AM PARAMEDIC INSTRUCTOR): COntinues on benazepril and verapamil SR. WIll [...] Description 02/05/2025 Nurse Triage [facility] [address] [address] Lynn Tanner RN 02/03/2025 Telephone [facility] [address] [address] Sowmya Yung Unsuccessful Phone Call 1 ([employer] dm ey exam) 01/26/[address] [address] Janiya Kaiser MA Chart Review (Med adherence) 01/22/2025 [facility] Clinical Pharmacist [address] [address] Macey Woo RPh 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/2025 [facility] Medication Access [address] [address] Anuradha Lopez CPhT 12/22/2024 Telephone [facility] Primary Care at [address] [address] Mendy Howe MD April [address] Howe cancelled 12/19/2024 2:00 PM CDT Lab [facility] Outpatient Lab at [address] [address] Prostate cancer screening (Primary Dx); Overactive bladder 12/19/2024 1:06 PM CDT - 12/19/2024 11:59 PM CDT Hospital Encounter [address] [address] Urinary hesitancy; Prostate cancer screening Discharge Disposition: Discharge to home or self care 12/16/2024 Patient Message [facility] Primary Care at [address] [address] Mendy Howe MD Trouble peeing from Last [...] on file Legal Sex Male 8:40 AM PARAMEDIC INSTRUCTOR Gender Identity Not on file Sexual Orientation Not on file Obstetrics History Last Filed Vital Signs Vital Sign Reading Time Taken Comments Blood Pressure 128/70 10/28/2024 10:13 AM PARAMEDIC INSTRUCTOR Pulse 70 10/28/2024 10:13 AM PARAMEDIC INSTRUCTOR Temperature 36.8 C (98.2 F) 10/28/2024 10:13 AM PARAMEDIC INSTRUCTOR Respiratory Rate 14 03/28/2022 10:04 AM CDT Oxygen Saturation 98% 10/28/2024 10:13 AM PARAMEDIC INSTRUCTOR Inhaled Oxygen Concentration - - Weight 79.1 kg (174 lb 4.8 oz) 10/28/2024 10:13 AM PARAMEDIC INSTRUCTOR Height 182.9 cm (6') 10/28/2024 10:13 AM PARAMEDIC INSTRUCTOR Body Mass Index 23.64 10/28/2024 10:13 AM PARAMEDIC INSTRUCTOR Plan of Treatment Health Maintenance Due Date [...] cancer screening EGFR Routine 10/21/2024 9:26 AM PARAMEDIC INSTRUCTOR Type 2 diabetes mellitus with hyperglycemia, without long-term current use of insulin (HCC) HEMOGLOBIN A1C Routine 10/21/2024 9:26 AM PARAMEDIC INSTRUCTOR Type 2 diabetes mellitus with hyperglycemia, without long-term current use of insulin (HCC) LIPID PANEL Routine 10/21/2024 9:26 AM PARAMEDIC INSTRUCTOR Type 2 diabetes mellitus with hyperglycemia, without long-term current use of insulin (HCC) ALBUMIN CREATININE RATIO, URINE Routine 10/21/2024 9:26 AM PARAMEDIC INSTRUCTOR Type 2 diabetes mellitus with hyperglycemia, without [...] LAB BLOOD ORDERABLES Fabiana gallegos Result JACKELINE [address] [place] [address] * eGFR (10/21/2024 9:26 AM PARAMEDIC INSTRUCTOR) eGFR 74 >=60 mL/min/1. 73 m2 Comment: [...] last reviewed 2021. Blood 10/21/2024 9:26 AM PARAMEDIC INSTRUCTOR 10/21/2024 3:58 PM PARAMEDIC INSTRUCTOR Mendy Howe MD LAB BLOOD ORDERABLES Fabiana l Result Performing Organization Address [facility] de Phone Number JACKELINE [address] Department [place] [address] * Albumin Creatinine Ratio, Urine (10/21/2024 9:26 AM PARAMEDIC INSTRUCTOR) Albumin Ur <12.0 mg/L Comment: Interpretive Data No reference range established. Current interpretive data was last revised 2019. Creatinine Ur 68.7 mg/dL JACKELINE ROTHMAN Comment: Interpretive Data No reference range established. Current interpretive data was last revised 2019. Albumin Creatinine Ratio, Ur <17 1 - 29 mg/g JACKELINE ROTHMAN Urine 10/21/2024 9:26 AM PARAMEDIC INSTRUCTOR 10/21/2024 3:50 PM PARAMEDIC INSTRUCTOR Mendy Howe MD LAB URINE ORDERABLES Fabiana l Result Performing Organization Address [facility] de Phone Number JACKELINE ROTHMAN [address] Department [place] [address] * (ABNORMAL) Hemoglobin A1c (10/21/2024 9:26 AM PARAMEDIC INSTRUCTOR) Hgb A1C 6.1(H) 4.0 - 5.6 % Estimated Average Glucose 128 mg/dL JACKELINE ROTHMAN Comment: The ADA recommends reporting an estimated Average Glucose (eAG) with all Hemoglobin A1c results using the equation derived from a study of 507 normal and diabetic adults. Minority populations were underrepresented and children were not included. (Diabetes Care 31:8652-8318, 2008). The eAG is not equivalent to a fasting glucose. Blood 10/21/2024 9:26 AM PARAMEDIC INSTRUCTOR 10/21/2024 3:50 PM PARAMEDIC INSTRUCTOR Mendy Howe MD LAB BLOOD ORDERABLES Fabiana l Result Performing Organization Address [facility] de Phone Number JACKELINE ROTHMAN [address] Department [place] [address] * Lipid panel (10/21/2024 9:26 AM PARAMEDIC INSTRUCTOR) Pathologist [facility] Cholesterol 167 30 - 199 mg/dL Comment: [...] 4 JACKELINE ROTHMAN Blood 10/21/2024 9:26 AM PARAMEDIC INSTRUCTOR 10/21/2024 3:50 PM PARAMEDIC INSTRUCTOR Mendy Howe MD LAB BLOOD ORDERABLES Fabiana l Result JACKELINE [address] Department [place] [address] * Diabetic Eye Exam (05/16/2024 4:36 PM CDT) Historical Provider HEALTH MAINTENANCE Final Result * COLONOSCOPY IMAGES (06/02/2016) Anatomical Region Laterality Modality Other Narrative 06/02/2016 Ordered by an unspecified provider. Historical Provider GI PROCEDURE ORDERABLES F inal Result from Last 3 Months or Most Recently Relevant to Health Maintenance Insurance T MEDICARE Care Teams Forestry Technician Relationship Specialty Start Date End Date Mendy Howe MD [address] [place] [address] PCP - General 12/15/16
--- OUTSIDE RECORDS SUMMARY | 2025-02-06 08:55 | XMS_ITS | Encounter Summary ---
Author Organization [facility] Address [address] [place] [address] Care Team Providers Care Holter Scanning Technician Name Role Phone Juan Howe MD Primary Care Provider [phone] Reason for Visit * Reason Onset Date Comments Back Pain 02/05/2025 Encounter Details Date Type Department Care Team (Late st Contact Info) Description 02/05/2025 Nurse Triage [facility] [address] [address] Lynn Tanner RN Social History [...] on file Legal Sex Male 8:40 AM BUSINESS SERVICES OFFICER Gender Identity Not on file Sexual Orientation [...] prior similar back pain Protocols Used Back [id number]-VG * Telephone Encounter - Karina Kirby RN [...] on filedocumented in this encounter Care Teams Holter Scanning Technician Relationship Specialty Start Date [place] [address] PCP - General 12/15/16 documented as of this encounter
--- OUTSIDE RECORDS SUMMARY | 2025-02-06 08:55 | XMS_ITS | Clinical Summary ---
Author Organization [facility] Address [address] [place] [address] Phone Care Team Providers Care Wholesale Account Executive Name Role Phone Juan Howe MD Primary Care Provider [phone] Social History Tobacco Use Types Packs/Day Years [...] age to complete this topic Care Teams Wholesale Account Executive Relationship Specialty Start Date [place] [address] PCP - General Internal Medicine 03/29/16
--- NOTE | 2025-02-06 10:03 | ED_ITS ---
HPI - Abdominal Pain General Chief Complaint: Abdominal Pain Stated Complaint: RUQ pain Time Seen by Provider: 02/06/25 08:37 History of Present Illness HPI narrative: Pt presents with right lower abdominal/flank pain fro a few days getting worse. Pt treated for UTI last week and finished antibiotics but started having pain 5 days ago and has not resolved. Pt denies fever. Pt radiates a bit to right flank. Pt to have cystoscopy soon. Related Data Home Medications ?Medication ?Instructions ?Recorded ?Confirmed ?Last Taken ?Type aspirin 81 mg tablet 81 mg PO DAILY 02/06/25 02/06/25 02/05/25 History benazepril 20 mg tablet 20 mg PO DAILY 02/06/25 02/06/25 02/05/25 History glipizide 5 mg tablet 5 mg PO BID 02/06/25 02/06/25 02/06/25 History metformin 500 mg tablet 1,000 mg PO BID 02/06/25 02/06/25 02/05/25 History omeprazole 20 mg capsule,delayed 20 mg PO .night PRN as needed 02/06/25 02/06/25 02/05/25 History release sitagliptin phosphate 100 mg 100 mg PO DAILY@0800 02/06/25 02/06/25 02/05/25 History tablet (Januvia) tamsulosin 0.4 mg capsule 0.4 mg PO .night 02/06/25 02/06/25 02/05/25 History verapamil 120 mg tablet,extended 120 mg PO DAILY@0800 02/06/25 02/06/25 02/05/25 History release Allergies Allergy/AdvReac Type Severity Reaction Status Date / Time No Known Allergies Allergy Verified 02/06/25 07:40 Review of Systems 2 Review of Systems: All systems reviewed & are unremarkable except as noted in HPI and below PMFSH Family History Family History (Updated 04/14/16 @ 23:21 by DOCTOR UNKNOWN) Sibling Patient's sister is in good health Social History Social History Smoking status: Never smoker Alcohol intake: former Substance use: never Substance use type: does not use Do You Feel Safe in your Home?: Yes Lack of Transportation: No Lack of Food: Never True Current Housing: I Have Housing Concerned About Future Housing: No Difficulty Paying Gas/Electric Bills: No Difficulty Paying for Meds: No Currently Unemployed: No Education: Bachelor's Degree Difficulty w/ Childcare or Family Care: No Spiritual care concerns: No Exam 2 Const: General: healthy appearing and no acute distress Nutritional Appearance: well nourished Orientation/consciousness: patient oriented x3 Limitations: no limitations Chest: Chest palpation & inspection: normal inspection of the chest Resp: Effort & Inspection: normal respiratory effort Auscultation: clear to auscultation bilaterally Cardio: Rate: regular rate Rhythm: regular rhythm GI: GI Palp: Yes Soft to palpation and Yes Tenderness to palpation present (GI) (right lower lateral tenderness not at McBurney's) Auscultation: normal bowel sounds : General: Yes bladder normal to palpation Back/Spine/Pelvis: Back: CVA tenderness Skin: General skin exam: normal color Rashes: no rashes Wounds: no wounds Neuro: General: patient oriented x3, moves all extremities, no meningeal signs and no focal motor deficits Speech: normal speech Extrem: General: normal to inspection and no clubbing, cyanosis or edema Psych: Mental Status: mental status grossly normal Affect: normal affect Course Vital Signs Vital signs: Vital Signs Pulse Oximetry 99 02/06/25 08:03 Temperature 98.1 F 02/06/25 08:05 Pulse Rate 73 02/06/25 12:57 Respiratory Rate 20 02/06/25 12:57 Blood Pressure 181/80 H 02/06/25 12:57 Pulse Oximetry 99 02/06/25 12:57 Oxygen Delivery Room Air 02/06/25 14:59 MDM - Abdominal Pain MDM Narrative Medical decision making narrative: Pt presents with right lq and right flank pain after treatment for uti. concern for pyelo or uti ar kidney stone. will give something for pain and nause and get labs and ct. ct shows some constipation but otherwise nothing to explain pain other than maybe constipation. ua neg. sodium 129 so will need observation to correct sodiu,. discussed with Dr Oviedo and agrees to admit. Lab Data 02/06/25 08:15 02/06/25 08:15 Labs: Lab Results 02/06/25 02/06/25 Range/Units 08:14 08:15 WBC 7.8 (4.5-10.0) K/mm3 RBC 4.01 L (4.6-6.20) M/mm3 Hgb 11.7 L (14.0-18.0) g/dL Hct 36.7 L (42.0-52.0) % MCV 91.5 (80-100) fl MCH 29.2 (26-34) pg MCHC 31.9 L (32-36) g/dl RDW 12.2 (11.5-14.5) % Plt Count 290 (150-375) k/mm3 MPV 8.9 (7.4-10.4) fl Immature Gran % (Auto) 0.5 (0-0.5) % Neut % (Auto) 80.3 H (45.5-73.1) % Lymph % (Auto) 11.0 L (18.3-44.2) % [place] % (Auto) 6.4 (2.6-8.5) % Eos % (Auto) 1.5 (0-4.4) % Baso % (Auto) 0.3 (0.2-1.2) % Lymph # (Auto) 0.86 L (0.9-3.2) K/mm3 [place] # (Auto) 0.5 (0.1-0.6) K/mm3 Eos # (Auto) 0.1 (0-0.3) K/mm3 Baso # (Auto) 0.0 (0.0-0.1) K/mm3 Abs Immat Gran (auto) 0.04 H (0.00-0.031) K/mm3 Absolute Neuts (auto) 6.3 (1.3-6.7) K/mm3 Absolute Nucleated RBC 0.000 (0.0-0.012) K/mm3 Nucleated RBC % 0.0 (0.0-0.2) % Sodium 129 L (137-145) mmol/L Potassium 4.0 (3.4-5.0) mmol/L Chloride 97 L (98-107) mmol/L Carbon Dioxide 24 (22-30) mmol/L Anion Gap 8 (4-12) mmol/L BUN 18 (9-20) mg/dL Creatinine 0.80 (0.7-1.3) mg/dL Estim Creat Clear Calc 76 ml/min Estimated GFR > 60 (59 - ) Glucose 163 H (65-110) mg/dL Hemoglobin A1c 6.3 H (<5.7) % Calcium 8.9 (8.4-10.2) mg/dL Total Bilirubin 0.5 (0.2-1.3) mg/dL AST 27 (17-59) U/L ALT 26 (6-50) U/L Alkaline Phosphatase 74 (38-126) U/L Total Protein 7.0 (6.3-8.2) g/dL Albumin 4.4 (3.5-5.1) g/dL Lipase 82 (23-300) U/L Urine Color Yellow (Yellow) Urine Appearance Clear (Clear) Urine pH 6.0 (5.0-9.0) Ur Specific [place] 1.024 (1.001-1.035) Urine Protein Trace (Negative) mg/dL Urine Glucose (UA) 1+ H (Negative) mg/dL Urine Ketones Trace H (Negative) mg/dL Ur Blood (Man) Negative (Negative) Urine Nitrate Negative (Negative) Urine Bilirubin Negative (Negative) Urine Urobilinogen 1.0 (<2.0) mg/dL Leukocyte Esterase Rfl Negative (Negative) JACKELIN/UL Urine RBC 3-5 H (0-2) /hpf Urine WBC 0-5 (0-3) /hpf Ur Squamous Epith Cells None seen (Few) /hpf Urine Bacteria None seen /hpf Urine Casts 0-2 Imaging Data Radiologist's impression: ITS Impressions Abdomen/Pelvis CT 02/06/25 09:25 IMPRESSION: 1. Large amount of colonic stool particularly at the cecum consistent with constipation. No other acute intra-abdominal/pelvic process. 2. Small sliding-type hiatal hernia. 2. Bladder diverticulum which may be secondary to chronic outlet obstruction from the enlarged prostate. Chest X-Ray 02/06/25 14:18 IMPRESSION: 1: NO ACUTE CARDIOPULMONARY DISEASE. Discharge Plan Discharge Clinical Impression: Acute hyponatremia Patient Disposition: Still a Patient Condition: Stable
[2025-02-06] MEDS: SODIUM CHLORIDE 0.9% IV 1,000 ML 150 ML IV CONT (11:26)
[2025-02-06 11:46] LABS: Glucose Point of Care 218 mg/dl (65-105)
--- NOTE | 2025-02-06 12:24 | PC.NURSE ---
EDP aware of pt being hypertensive, has not taken AMA BP medications pt to continue on with admit to medical floor
--- NOTE | 2025-02-06 12:50 | ADMGEN ---
This patient, Angus Delaney, was admitted to [facility] Surg Room 324-02. Patient/family oriented to hospital policies and general routines including ID bracelet, bed and alarms, visiting hours, pain management, procedures, bathroom and other care routines, personal items, smoking policy, room service/diet, and visiting hours. Information on how to activate the Rapid Response Team has been discussed. Patient/Family are encouraged to report perceived risks to care and to ask questions if they do not understand what they are told or what they should do.
--- NOTE | 2025-02-06 14:38 | PM.IMHP ---
H&P: HPI History of Present Illness Date/Time: 02/06/25 14:38 Chief Complaint: RUQ pain. Narrative: ER-HPI narrative: Pt presents with right lower abdominal/flank pain fro a few days getting worse. Pt treated for UTI last week and finished antibiotics but started having pain 5 days ago and has not resolved. Pt denies fever. Pt radiates a bit to right flank. Pt to have cystoscopy soon. 74 y/o male presented with c/o RUQ pain, patient is a poor historian, denies any nausea or vomiting, patient did have BM yesterday, to further evaluate patient had CT scan of abdomen which showed large amount of colonic stool particularly at the cecum consistent with constipation. No other acute intra-abdominal/pelvic process. will give patient mirLarge amount of colonic stool particularly at the cecum consistent with constipation. No other acute intra-abdominal/pelvic process. will give patient Miralax and Colace for constipation and monitor, patient pain,Large amount of colonic stool particularly at the cecum consistent with constipation. No other acute intra-abdominal/pelvic process. also pain is located along right ribs and its tender, x-ray did not show any bony injury. upon arrival patient sodium was 129, most likely due to dehydration, will gently hydrate the patient, will monitor, will have PT/OT evaluate the patient. [facility] Family History Family History (Updated 04/14/16 @ 23:21 by DOCTOR UNKNOWN) Sibling Patient's sister is in good health Social History Social History Smoking status: Never smoker Alcohol intake: former Substance use: never Substance use type: does not use Do You Feel Safe in your Home?: Yes Lack of Transportation: No Lack of Food: Never True Current Housing: I Have Housing Concerned About Future Housing: No Difficulty Paying Gas/Electric Bills: No Difficulty Paying for Meds: No Currently Unemployed: No Education: Bachelor's Degree Difficulty w/ Childcare or Family Care: No Spiritual care concerns: No Meds Home Medications and Allergies Home Medications ?Medication ?Instructions ?Recorded ?Confirmed ?Type aspirin 81 mg tablet 81 mg PO DAILY 02/06/25 02/06/25 History benazepril 20 mg tablet 20 mg PO DAILY 02/06/25 02/06/25 History glipizide 5 mg tablet 5 mg PO BID 02/06/25 02/06/25 History metformin 500 mg tablet 1,000 mg PO BID 02/06/25 02/06/25 History omeprazole 20 mg capsule,delayed 20 mg PO .night PRN as needed 02/06/25 02/06/25 History release sitagliptin phosphate 100 mg 100 mg PO DAILY@0800 02/06/25 02/06/25 History tablet (Januvia) tamsulosin 0.4 mg capsule 0.4 mg PO .night 02/06/25 02/06/25 History verapamil 120 mg tablet,extended 120 mg PO DAILY@0800 02/06/25 02/06/25 History release Allergies Allergy/AdvReac Type Severity Reaction Status Date / Time No Known Allergies Allergy Verified 02/06/25 07:40 Vital Signs Vital Signs - 24 hr 02/06/25 08:03 02/06/25 08:05 02/06/25 08:15 Temperature 36.7 C Pulse Rate 75 71 Respiratory Rate 18 15 Blood Pressure 180/71 H Pulse Oximetry 99 100 99 Oxygen Delivery Room Air 02/06/25 08:30 02/06/25 08:46 02/06/25 09:12 Temperature Pulse Rate 74 68 Respiratory Rate 19 10 L Blood Pressure Pulse Oximetry 98 100 96 Oxygen Delivery 02/06/25 09:15 02/06/25 09:31 02/06/25 09:52 Temperature Pulse Rate Respiratory Rate Blood Pressure Pulse Oximetry 97 97 98 Oxygen Delivery 02/06/25 10:00 02/06/25 10:17 02/06/25 11:18 Temperature Pulse Rate 80 Respiratory Rate 18 Blood Pressure 179/80 H Pulse Oximetry 98 97 Oxygen Delivery 02/06/25 11:30 02/06/25 11:32 02/06/25 11:45 Temperature Pulse Rate 77 73 89 Respiratory Rate 15 14 22 H Blood Pressure 190/82 H Pulse Oximetry 99 99 98 Oxygen Delivery 02/06/25 12:00 02/06/25 12:19 02/06/25 12:23 Temperature Pulse Rate 73 74 86 Respiratory Rate 12 20 14 Blood Pressure 180/84 H Pulse Oximetry 98 98 98 Oxygen Delivery 02/06/25 12:57 Temperature Pulse Rate 73 Respiratory Rate 20 Blood Pressure 181/80 H Pulse Oximetry 99 Oxygen Delivery Exam Narrative: Patient is comfortable, NAD HEENT: eyes are clear and none icteric LUNGS:CTA HEART: RR S1S2 ABD: BS+, Soft and tender in RUQ and right lower ribs. Lower extremities: no edema SKIN: nonjaundiced Neuro: grossly intact. H&P: Results Labs Labs: Short CBC 02/06/25 Range/Units 08:15 WBC 7.8 (4.5-10.0) K/mm3 Hgb 11.7 L (14.0-18.0) g/dL Hct 36.7 L (42.0-52.0) % Plt Count 290 (150-375) k/mm3 BMP 02/06/25 08:15 Sodium 129 L Potassium 4.0 Chloride 97 L Carbon Dioxide 24 BUN 18 Creatinine 0.80 Glucose 163 H Calcium 8.9 Liver Function 02/06/25 Range/Units 08:15 Total Bilirubin 0.5 (0.2-1.3) mg/dL AST 27 (17-59) U/L ALT 26 (6-50) U/L Alkaline Phosphatase 74 (38-126) U/L Albumin 4.4 (3.5-5.1) g/dL Urine 02/06/25 Range/Units 08:15 Urine Color Yellow (Yellow) Urine Appearance Clear (Clear) Urine pH 6.0 (5.0-9.0) Ur Specific [place] 1.024 (1.001-1.035) Urine Protein Trace (Negative) mg/dL Urine Glucose (UA) 1+ H (Negative) mg/dL Assessment and Plan Assessment and plan (1) Acute hyponatremia: Code(s): E87.1 - Hypo-osmolality and hyponatremia Status: Acute (2) Abdominal pain, acute, right upper quadrant: Code(s): R10.11 - Right upper quadrant pain Status: Acute (3) Constipation: Code(s): K59.00 - Constipation, unspecified Status: Acute (4) Debility, unspecified: Code(s): R53.81 - Other malaise Status: Acute Plan 74 y/o male presented with c/o RUQ pain, patient is a poor historian, denies any nausea or vomiting, patient did have BM yesterday, to further evaluate patient had CT scan of abdomen which showed large amount of colonic stool particularly at the cecum consistent with constipation. No other acute intra-abdominal/pelvic process. will give patient mirLarge amount of colonic stool particularly at the cecum consistent with constipation. No other acute intra-abdominal/pelvic process. will give patient Miralax and Colace for constipation and monitor, patient pain,Large amount of colonic stool particularly at the cecum consistent with constipation. No other acute intra-abdominal/pelvic process. also pain is located along right ribs and its tender, x-ray did not show any bony injury. upon arrival patient sodium was 129, most likely due to dehydration, will gently hydrate the patient, will monitor, will have PT/OT evaluate the patient.
[2025-02-06] MEDS: lisinopriL 20 MG TABLET PO (14:54)
[2025-02-06] MEDS: VERAPAMIL HCL ER 120 MG TABLET PO (14:54)
[2025-02-06] MEDS: polyethylene glycoL 3350 17 GM POWD.PACK PO (14:55)
[2025-02-06 16:36] LABS: Glucose Point of Care 148 mg/dl (65-105)
[2025-02-06] MEDS: glipiZIDE 5 MG TABLET PO (16:49)
[2025-02-06] MEDS: CYCLOBENZAPRINE HCL 5 MG TABLET PO (16:51)
--- NOTE | 2025-02-06 17:18 | PHAR ---
Drug Name:?Benazepril Hydrochloride 20MG Color:?GrayShape:?CircleImprint:??S?;?343Imprint Code Description:?Debossed with 'S' on one side and '343' on the other side.Form:?Oral Tablet
[2025-02-06 17:53] LABS: Hemoglobin A1C 6.3 % (<5.7)
[2025-02-06 20:04] LABS: Glucose Point of Care 146 mg/dl (65-105)
[2025-02-06] MEDS: TAMSULOSIN HCL 0.4 MG CAPSULE PO (20:20)
[2025-02-07] MEDS: CYCLOBENZAPRINE HCL 5 MG TABLET PO ×3 (00:22→17:31)
[2025-02-07] MEDS: BELLADONNA ALK/PHENOB ELIX 10 ML, MAG HYDROX/ALUMINUM HYD/SIMETH 30 ML, LIDOCAINE 2% VI... PO (00:22)
[2025-02-07] MEDS: KETOROLAC 15 MG/ML VIAL (*BKC) IV PUSH ×2 (02:24→19:00)
[2025-02-07] MEDS: ACETAMINOPHEN 325 MG TABLET 650 MG PO ×3 (05:22→22:33)
[2025-02-07] MEDS: glipiZIDE 5 MG TABLET PO ×2 (05:23→16:02)
[2025-02-07 06:00] VITALS: BP 158/62; PULSE 61; RESP 18; TEMP 36; O2SAT 100
[2025-02-07 07:44] LABS: Glucose Point of Care 180 mg/dl (65-105)
[2025-02-07 08:16] LABS: Hematocrit 36.8 % (42.0-52.0); Mean Corpuscular HGB Conc 32.6 g/dl (32-36); Mean Corpuscular Hemoglobin 29.6 pg (26-34); Mean Corpuscular Volume 90.9 fl (80-100); Mean Platelet Volume 8.9 fl (7.4-10.4); Platelet Count Result 284 k/mm3 (150-375); Red Blood Count 4.05 M/mm3 (4.6-6.20); Red Cell Distribution Width 12.4 % (11.5-14.5); White Blood Count 7.1 K/mm3 (4.5-10.0)
[2025-02-07 08:31] LABS: Anion Gap 9 mmol/L (4-12); Blood Urea Nitrogen 14 mg/dL (9-20); Carbon Dioxide 26 mmol/L (22-30); Chloride 93 mmol/L (98-107); Estimated CRCL calculation 63 ml/min; Estimated Glomerular Filt Rate > 60; Glucose 224 mg/dL (65-110); Magnesium 2.1 mg/dL (1.6-2.3); Potassium 4.7 mmol/L (3.4-5.0); Sodium 128 mmol/L (137-145)
[2025-02-07] MEDS: polyethylene glycoL 3350 17 GM POWD.PACK PO (09:05)
[2025-02-07] MEDS: VERAPAMIL HCL ER 120 MG TABLET PO (09:05)
[2025-02-07] MEDS: PANTOPRAZOLE 40 MG TABLET PO ×2 (09:06→21:00)
[2025-02-07] MEDS: BENAZEPRIL HCL 20 MG 1 EACH PO (09:06)
[2025-02-07] MEDS: ASPIRIN 81 MG ENTERIC TABLET PO (09:06)
[2025-02-07] MEDS: SITagliptin PHOSPHATE 100 MG TABLET PO (09:06)
[2025-02-07] MEDS: DOCUSATE SODIUM 100 MG CAPSULE PO (09:09)
[2025-02-07] MEDS: SODIUM CHLORIDE 0.9% IV 1,000 ML 75 ML IV CONT (11:20)
[2025-02-07 11:36] LABS: Glucose Point of Care 108 mg/dl (65-105)
--- NOTE | 2025-02-07 13:26 | PM.IMPN ---
Progress Note: A&P Assessment and Plan (1) Acute hyponatremia: Code(s): E87.1 - Hypo-osmolality and hyponatremia Status: Acute (2) Abdominal pain, acute, right upper quadrant: Code(s): R10.11 - Right upper quadrant pain Status: Acute (3) Constipation: Code(s): K59.00 - Constipation, unspecified Status: Acute (4) Debility, unspecified: Code(s): R53.81 - Other malaise Status: Acute Plan 74 y/o male presented with c/o RUQ pain, patient is a poor historian, denies any nausea or vomiting, patient did have BM yesterday, to further evaluate patient had CT scan of abdomen which showed large amount of colonic stool particularly at the cecum consistent with constipation. No other acute intra-abdominal/pelvic process. will give patient mirLarge amount of colonic stool particularly at the cecum consistent with constipation. No other acute intra-abdominal/pelvic process. on 02/06 gave patient Miralax and Colace for constipation patient stats he is passing more gas but BM but pain is little better will give Miralax and Colace again today and monitor, also pain is located along right ribs and its tender, x-ray did not show any bony injury. upon arrival patient sodium was 129, most likely due to dehydration, will gently hydrate the patient, will monitor, will have PT/OT evaluate the patient. Subjective Date/time seen: 02/07/25 13:26 Interval history: 74 y/o male presented with c/o RUQ pain, patient is a poor historian, denies any nausea or vomiting, patient did have BM yesterday, to further evaluate patient had CT scan of abdomen which showed large amount of colonic stool particularly at the cecum consistent with constipation. No other acute intra-abdominal/pelvic process. will give patient mirLarge amount of colonic stool particularly at the cecum consistent with constipation. No other acute intra-abdominal/pelvic process. on 02/06 gave patient Miralax and Colace for constipation patient stats he is passing more gas but BM but pain is little better will give Miralax and Colace again today and monitor, also pain is located along right ribs and its tender, x-ray did not show any bony injury. upon arrival patient sodium was 129, most likely due to dehydration, will gently hydrate the patient, will monitor, will have PT/OT evaluate the patient. Exam Narrative: Patient is comfortable, NAD HEENT: eyes are clear and none icteric LUNGS:CTA HEART: RR S1S2 ABD: BS+, Soft and tender in RUQ and right lower ribs. Lower extremities: no edema SKIN: nonjaundiced Neuro: grossly intact. Objective Data Vital Signs Vital Signs: Vital Signs - 24 hr 02/06/25 14:59 02/06/25 20:00 02/06/25 20:00 Temperature Pulse Rate Respiratory Rate Blood Pressure Pulse Oximetry 99 Oxygen Delivery Room Air Room Air Room Air 02/06/25 22:00 02/07/25 06:00 02/07/25 09:00 Temperature 35.9 C L 36.0 C L Pulse Rate 66 61 Respiratory Rate 20 18 Blood Pressure 164/60 H 158/62 H Pulse Oximetry 99 100 Oxygen Delivery Room Air Intake/Output Intake/Output: Intake & Output 02/04/25 02/05/25 02/06/25 02/07/25 23:59 23:59 23:59 23:59 Intake Total 1340 1188 Balance 1340 1188 Meds/Results Medications: Active Medications Generic Name Dose Route Start Last Admin Trade Name Freq PRN Reason Stop Dose Admin Acetaminophen 650 mg 02/06/25 23:53 02/07/25 05:22 Acetaminophen 325 Mg Tablet PO 650 mg Q4H PRN Administration Headache Aspirin 81 mg 02/07/25 09:00 02/07/25 09:06 Aspirin 81 Mg Enteric Tablet PO 03/09/25 08:59 81 mg DAILY KETAN Administration Cyclobenzaprine HCl 5 mg 02/06/25 16:30 02/07/25 09:05 Cyclobenzaprine Hcl 5 Mg Tablet PO 5 mg Q8H PRN Administration Muscle Spasm Dextrose 12.5 gm 02/06/25 13:29 Dextrose 50% 25 Gm/50 Ml Syringe IV PUSH PRN PRN Hypoglycemia Protocol Docusate Sodium 100 mg 02/06/25 14:05 02/07/25 09:09 Docusate Sodium 100 Mg Capsule PO 100 mg Q12H PRN Administration Constipation Glipizide 5 mg 02/06/25 16:30 02/07/25 05:23 Glipizide 5 Mg Tablet PO 5 mg BIDAC KETAN Administration Glucagon 1 mg 02/06/25 13:29 Glucagon For Inj 1 Mg Vial IM PRN PRN Hypoglycemia Protocol Glucose 15 gm 02/06/25 13:29 Glucose Oral Gel 15 Gm Of Glucse In 37.5 Gm Tube PO PRN PRN Hypoglycemia Protocol Dextrose 1,000 mls @ 100 mls/hr 02/06/25 13:29 Dextrose 5% 1,000 Ml IVPB PRN PRN Hypoglycemia Protocol Sodium Chloride 1,000 mls @ 75 mls/hr 02/07/25 09:20 02/07/25 11:20 Normal Saline Iv IV CONT 75 mls/hr .[id number] KETAN Administration Ketorolac Tromethamine 15 mg 02/07/25 00:12 02/07/25 02:24 Ketorolac 15 Mg/Ml Vial (*Bkc) IV PUSH 15 mg Q6H PRN Administration Pain Rated 7-10 Non-Formulary ( 1 each 02/07/25 09:00 02/07/25 09:06 Benazepril Hcl 20 Mg PO 03/09/25 08:59 1 each Oral Tablet) DAILY KETAN Administration Pantoprazole Sodium 40 mg 02/07/25 09:00 02/07/25 09:06 Pantoprazole 40 Mg Tablet PO 40 mg Q12HR KETAN Administration Polyethylene Glycol 17 gm 02/06/25 14:05 02/07/25 09:05 Polyethylene Glycol 3350 17 Gm Powd.Pack PO 17 gm QAM KETAN Administration Sitagliptin Phosphate 100 mg 02/07/25 08:00 02/07/25 09:06 Sitagliptin Phosphate 100 Mg Tablet PO 100 mg DAILY@0800 KETAN Administration Tamsulosin HCl 0.4 mg 02/06/25 21:00 02/06/25 20:20 Tamsulosin Hcl 0.4 Mg Capsule PO 0.4 mg HS KETAN Administration Verapamil HCl 120 mg 02/06/25 13:51 02/07/25 09:05 Verapamil Hcl Er 120 Mg Tablet PO 03/09/25 13:39 120 mg DAILY@0800 KETAN Administration Radiology Results: ITS Impressions Abdomen/Pelvis CT 02/06/25 09:25 IMPRESSION: 1. Large amount of colonic stool particularly at the cecum consistent with constipation. No other acute intra-abdominal/pelvic process. 2. Small sliding-type hiatal hernia. 2. Bladder diverticulum which may be secondary to chronic outlet obstruction from the enlarged prostate. Chest X-Ray 02/06/25 14:18 IMPRESSION: 1: NO ACUTE CARDIOPULMONARY DISEASE. Labs Labs: Laboratory Results - last 24 hr 02/06/25 02/06/25 02/06/25 08:14 16:33 19:54 WBC RBC Hgb Hct MCV MCH MCHC RDW Plt Count MPV Sodium Potassium Chloride Carbon Dioxide Anion Gap BUN Creatinine Estim Creat Clear Calc Estimated GFR Glucose POC Capillary Glucose 148 H 146 H Hemoglobin A1c 6.3 H Calcium Magnesium 02/07/25 02/07/25 02/07/25 07:31 08:06 11:30 WBC 7.1 RBC 4.05 L Hgb 12.0 L Hct 36.8 L MCV 90.9 MCH 29.6 MCHC 32.6 RDW 12.4 Plt Count 284 MPV 8.9 Sodium 128 L Potassium 4.7 Chloride 93 L Carbon Dioxide 26 Anion Gap 9 BUN 14 Creatinine 0.98 Estim Creat Clear Calc 63 Estimated GFR > 60 Glucose 224 H POC Capillary Glucose 180 H 108 H Hemoglobin A1c Calcium 9.0 Magnesium 2.1
[2025-02-07 14:00] VITALS: BP 146/68; PULSE 63; RESP 18; TEMP 36; O2SAT 98
[2025-02-07 16:32] LABS: Glucose Point of Care 132 mg/dl (65-105)
[2025-02-07 19:22] LABS: Glucose Point of Care 143 mg/dl (65-105)
[2025-02-07 20:30] VITALS: PULSE 55; O2SAT 97
[2025-02-07] MEDS: TAMSULOSIN HCL 0.4 MG CAPSULE PO (20:59)
[2025-02-07 22:00] VITALS: BP 141/62; PULSE 65; RESP 18; TEMP 36; O2SAT 99
[2025-02-08] MEDS: CYCLOBENZAPRINE HCL 5 MG TABLET PO (01:03)
[2025-02-08] MEDS: KETOROLAC 15 MG/ML VIAL (*BKC) IV PUSH (01:03)
[2025-02-08] MEDS: SODIUM CHLORIDE 0.9% IV 1,000 ML 75 ML IV CONT ×2 (01:06→15:02)
[2025-02-08] MEDS: DOCUSATE SODIUM 400 MG/400 ML ENEMA RECTAL (03:59)
[2025-02-08 05:38] LABS: Hemoglobin 11.3 g/dL (14.0-18.0); Mean Corpuscular HGB Conc 31.4 g/dl (32-36); Mean Corpuscular Hemoglobin 29.4 pg (26-34); Mean Corpuscular Volume 93.5 fl (80-100); Mean Platelet Volume 9.2 fl (7.4-10.4); Platelet Count Result 262 k/mm3 (150-375); Red Blood Count 3.85 M/mm3 (4.6-6.20); Red Cell Distribution Width 12.5 % (11.5-14.5); White Blood Count 6.7 K/mm3 (4.5-10.0)
[2025-02-08 05:53] LABS: Anion Gap 9 mmol/L (4-12); Blood Urea Nitrogen 17 mg/dL (9-20); Calcium 8.8 mg/dL (8.4-10.2); Carbon Dioxide 22 mmol/L (22-30); Chloride 100 mmol/L (98-107); Estimated CRCL calculation 64 ml/min; Estimated Glomerular Filt Rate > 60; Glucose 131 mg/dL (65-110); Magnesium 2.1 mg/dL (1.6-2.3); Potassium 4.4 mmol/L (3.4-5.0); Sodium 131 mmol/L (137-145)
[2025-02-08 06:00] VITALS: BP 133/85; PULSE 88; RESP 18; TEMP 36.1; O2SAT 95
[2025-02-08 07:31] LABS: Glucose Point of Care 141 mg/dl (65-105)
[2025-02-08 08:00] VITALS: PULSE 88; RESP 18; O2SAT 96
[2025-02-08 08:10] VITALS: O2SAT 96
[2025-02-08] MEDS: PANTOPRAZOLE 40 MG TABLET PO ×2 (08:17→20:54)
[2025-02-08] MEDS: LACTULOSE 20 GM/30 ML UDC PO (08:17)
[2025-02-08] MEDS: polyethylene glycoL 3350 17 GM POWD.PACK PO ×2 (08:18→17:07)
[2025-02-08] MEDS: VERAPAMIL HCL ER 120 MG TABLET PO (08:18)
[2025-02-08] MEDS: SITagliptin PHOSPHATE 100 MG TABLET PO (08:18)
[2025-02-08] MEDS: ASPIRIN 81 MG ENTERIC TABLET PO (08:18)
[2025-02-08] MEDS: BENAZEPRIL HCL 20 MG 1 EACH PO (08:19)
[2025-02-08] MEDS: glipiZIDE 5 MG TABLET PO ×2 (08:24→17:08)
[2025-02-08 11:32] LABS: Glucose Point of Care 137 mg/dl (65-105)
[2025-02-08 14:00] VITALS: BP 151/58; PULSE 76; RESP 18; TEMP 36.5; O2SAT 100
--- NOTE | 2025-02-08 14:44 | P.PNIM_ITS ---
Progress Note: A&P Assessment and Plan (1) Acute hyponatremia: Code(s): E87.1 - Hypo-osmolality and hyponatremia Status: Acute (2) Abdominal pain, acute, right upper quadrant: Code(s): R10.11 - Right upper quadrant pain Status: Acute (3) Constipation: Code(s): K59.00 - Constipation, unspecified Status: Acute (4) Debility, unspecified: Code(s): R53.81 - Other malaise Status: Acute Plan 74 y/o male presented with c/o RUQ pain, patient is a poor historian, denies any nausea or vomiting, patient did have BM yesterday, to further evaluate patient had CT scan of abdomen which showed large amount of colonic stool particularly at the cecum consistent with constipation. No other acute intra-abdominal/pelvic process. will give patient mirLarge amount of colonic stool particularly at the cecum consistent with constipation. No other acute intra-abdominal/pelvic process. on 02/06 gave patient Miralax and Colace for constipation patient stats he is passing more gas but BM but pain is little better will give Miralax and Colace again today and monitor, also pain is located along right ribs and its tender, x-ray did not show any bony injury. upon arrival patient sodium was 129, most likely due to dehydration, patient is being hydrated, also patient abdomen symptoms were worsening and last night oil well service operator helper gave the patient Docusate Sodium enema, this morning patient had very small BM, patient family is present and patient encourage to increase fluids intake and ambulate, will monitor, will have PT/OT evaluate the patient. Subjective Date/time seen: 02/08/25 14:44 Interval history: 74 y/o male presented with c/o RUQ pain, patient is a poor historian, denies any nausea or vomiting, patient did have BM yesterday, to further evaluate patient had CT scan of abdomen which showed large amount of colonic stool particularly at the cecum consistent with constipation. No other acute intra-abdominal/pelvic process. will give patient mirLarge amount of colonic stool particularly at the cecum consistent with constipation. No other acute intra-abdominal/pelvic process. on 02/06 gave patient Miralax and Colace for constipation patient stats he is passing more gas but BM but pain is little better will give Miralax and Colace again today and monitor, also pain is located along right ribs and its tender, x-ray did not show any bony injury. upon arrival patient sodium was 129, most likely due to dehydration, patient is being hydrated, also patient abdomen symptoms were worsening and last night oil well service operator helper gave the patient Docusate Sodium enema, this morning patient had very small BM, patient family is present and patient encourage to increase fluids intake and ambulate, will monitor, will have PT/OT evaluate the patient. Exam Narrative: Patient is comfortable, NAD HEENT: eyes are clear and none icteric LUNGS:CTA HEART: RR S1S2 ABD: BS+, Soft and tender in RUQ and right lower ribs. Lower extremities: no edema SKIN: nonjaundiced Neuro: grossly intact. Objective Data Vital Signs Vital Signs: Vital Signs - 24 hr 02/07/25 20:30 02/07/25 20:59 02/07/25 22:00 Temperature 36.0 C L Pulse Rate 55 L 65 Respiratory Rate 18 Blood Pressure 141/62 H Pulse Oximetry 97 99 Oxygen Delivery Room Air Room Air Fraction of Inspired Oxygen 21 02/08/25 06:00 02/08/25 08:00 02/08/25 08:10 Temperature 36.1 C L Pulse Rate 88 88 Respiratory Rate 18 18 Blood Pressure 133/85 Pulse Oximetry 95 96 96 Oxygen Delivery Room Air Room Air Fraction of Inspired Oxygen 21 21 Intake/Output Intake/Output: Intake & Output 02/05/25 02/06/25 02/07/25 02/08/25 23:59 23:59 23:59 23:59 Intake Total 1340 4128 2017.5 Balance 1340 4128 2017.5 Meds/Results Medications: Active Medications Generic Name Dose Route Start Last Admin Trade Name Freq PRN Reason Stop Dose Admin Acetaminophen 650 mg 02/06/25 23:53 02/07/25 22:33 Acetaminophen 325 Mg Tablet PO 650 mg Q4H PRN Administration Headache Aspirin 81 mg 02/07/25 09:00 02/08/25 08:18 Aspirin 81 Mg Enteric Tablet PO 03/09/25 08:59 81 mg DAILY KETAN Administration Cyclobenzaprine HCl 5 mg 02/06/25 16:30 02/08/25 01:03 Cyclobenzaprine Hcl 5 Mg Tablet PO 5 mg Q8H PRN Administration Muscle Spasm Dextrose 12.5 gm 02/06/25 13:29 Dextrose 50% 25 Gm/50 Ml Syringe IV PUSH PRN PRN Hypoglycemia Protocol Docusate Sodium 100 mg 02/06/25 14:05 02/07/25 09:09 Docusate Sodium 100 Mg Capsule PO 100 mg Q12H PRN Administration Constipation Glipizide 5 mg 02/08/25 08:00 02/08/25 08:24 Glipizide 5 Mg Tablet PO 5 mg 0800,1630 KETAN Administration Glucagon 1 mg 02/06/25 13:29 Glucagon For Inj 1 Mg Vial IM PRN PRN Hypoglycemia Protocol Glucose 15 gm 02/06/25 13:29 Glucose Oral Gel 15 Gm Of Glucse In 37.5 Gm Tube PO PRN PRN Hypoglycemia Protocol Dextrose 1,000 mls @ 100 mls/hr 02/06/25 13:29 Dextrose 5% 1,000 Ml IVPB PRN PRN Hypoglycemia Protocol Sodium Chloride 1,000 mls @ 75 mls/hr 02/07/25 09:20 02/08/25 01:06 Normal Saline Iv IV CONT 75 mls/hr .[id number] KETAN Administration Ketorolac Tromethamine 15 mg 02/07/25 00:12 02/08/25 01:03 Ketorolac 15 Mg/Ml Vial (*Bkc) IV PUSH 15 mg Q6H PRN Administration Pain Rated 7-10 Lactulose 20 gm 02/08/25 09:00 02/08/25 08:17 Lactulose 20 Gm/30 Ml Udc PO 20 gm QAM KETAN Administration Non-Formulary ( 1 each 02/07/25 09:00 02/08/25 08:19 Benazepril Hcl 20 Mg PO 03/09/25 08:59 1 each Oral Tablet) DAILY KETAN Administration Pantoprazole Sodium 40 mg 02/07/25 09:00 02/08/25 08:17 Pantoprazole 40 Mg Tablet PO 40 mg Q12HR KETAN Administration Polyethylene Glycol 17 gm 02/08/25 09:00 02/08/25 08:18 Polyethylene Glycol 3350 17 Gm Powd.Pack PO 17 gm BID KETAN Administration Sitagliptin Phosphate 100 mg 02/07/25 08:00 02/08/25 08:18 Sitagliptin Phosphate 100 Mg Tablet PO 100 mg DAILY@0800 KETAN Administration Tamsulosin HCl 0.4 mg 02/06/25 21:00 02/07/25 20:59 Tamsulosin Hcl 0.4 Mg Capsule PO 0.4 mg HS KETAN Administration Verapamil HCl 120 mg 02/06/25 13:51 02/08/25 08:18 Verapamil Hcl Er 120 Mg Tablet PO 03/09/25 13:39 120 mg DAILY@0800 KETAN Administration Radiology Results: ITS Impressions Abdomen/Pelvis CT 02/06/25 09:25 IMPRESSION: 1. Large amount of colonic stool particularly at the cecum consistent with constipation. No other acute intra-abdominal/pelvic process. 2. Small sliding-type hiatal hernia. 2. Bladder diverticulum which may be secondary to chronic outlet obstruction from the enlarged prostate. Chest X-Ray 02/06/25 14:18 IMPRESSION: 1: NO ACUTE CARDIOPULMONARY DISEASE. Labs Labs: Laboratory Results - last 24 hr 02/07/25 02/07/25 02/08/25 16:22 19:16 05:19 WBC 6.7 RBC 3.85 L Hgb 11.3 L Hct 36.0 L MCV 93.5 MCH 29.4 MCHC 31.4 L RDW 12.5 Plt Count 262 MPV 9.2 Sodium 131 L Potassium 4.4 Chloride 100 Carbon Dioxide 22 Anion Gap 9 BUN 17 Creatinine 0.97 Estim Creat Clear Calc 64 Estimated GFR > 60 Glucose 131 H POC Capillary Glucose 132 H 143 H Calcium 8.8 Magnesium 2.1 02/08/25 02/08/25 07:28 11:30 WBC RBC Hgb Hct MCV MCH MCHC RDW Plt Count MPV Sodium Potassium Chloride Carbon Dioxide Anion Gap BUN Creatinine Estim Creat Clear Calc Estimated GFR Glucose POC Capillary Glucose 141 H 137 H Calcium Magnesium
[2025-02-08 16:48] LABS: Glucose Point of Care 153 mg/dl (65-105)
[2025-02-08 20:10] LABS: Glucose Point of Care 176 mg/dl (65-105)
[2025-02-08 20:52] VITALS: BP 135/50; PULSE 78; RESP 16; TEMP 36.6; O2SAT 99
[2025-02-08] MEDS: TAMSULOSIN HCL 0.4 MG CAPSULE PO (20:54)
[2025-02-09 05:52] LABS: Hematocrit 37.6 % (42.0-52.0); Hemoglobin 11.9 g/dL (14.0-18.0); Mean Corpuscular HGB Conc 31.6 g/dl (32-36); Mean Corpuscular Hemoglobin 29.4 pg (26-34); Mean Corpuscular Volume 92.8 fl (80-100); Platelet Count Result 296 k/mm3 (150-375); Red Blood Count 4.05 M/mm3 (4.6-6.20); Red Cell Distribution Width 12.7 % (11.5-14.5); White Blood Count 6.8 K/mm3 (4.5-10.0)
[2025-02-09] MEDS: SODIUM CHLORIDE 0.9% IV 1,000 ML 75 ML IV CONT ×2 (05:54→16:55)
[2025-02-09 06:00] VITALS: BP 163/65; PULSE 67; RESP 12; TEMP 36.2; O2SAT 99
[2025-02-09 06:02] LABS: Anion Gap 9 mmol/L (4-12); Blood Urea Nitrogen 16 mg/dL (9-20); Calcium 9.2 mg/dL (8.4-10.2); Carbon Dioxide 26 mmol/L (22-30); Chloride 100 mmol/L (98-107); Estimated CRCL calculation 64 ml/min; Estimated Glomerular Filt Rate > 60; Glucose 142 mg/dL (65-110); Magnesium 2.4 mg/dL (1.6-2.3); Potassium 4.2 mmol/L (3.4-5.0); Sodium 135 mmol/L (137-145)
[2025-02-09 07:37] LABS: Glucose Point of Care 128 mg/dl (65-105)
[2025-02-09 08:00] VITALS: O2SAT 99
[2025-02-09] MEDS: PANTOPRAZOLE 40 MG TABLET PO ×2 (08:23→20:23)
[2025-02-09] MEDS: VERAPAMIL HCL ER 120 MG TABLET PO (08:23)
[2025-02-09] MEDS: SITagliptin PHOSPHATE 100 MG TABLET PO (08:23)
[2025-02-09] MEDS: polyethylene glycoL 3350 17 GM POWD.PACK PO ×2 (08:23→16:55)
[2025-02-09] MEDS: ASPIRIN 81 MG ENTERIC TABLET PO (08:23)
[2025-02-09] MEDS: LACTULOSE 20 GM/30 ML UDC PO (08:23)
[2025-02-09] MEDS: BENAZEPRIL HCL 20 MG 1 EACH PO (08:24)
[2025-02-09] MEDS: glipiZIDE 5 MG TABLET PO ×2 (08:25→16:55)
[2025-02-09] MEDS: METOCLOPRAMIDE HCL INJ 10 MG/2 ML VIAL 5 MG IV PUSH (09:25)
[2025-02-09 11:54] LABS: Glucose Point of Care 150 mg/dl (65-105)
[2025-02-09 14:00] VITALS: BP 169/67; PULSE 71; RESP 20; TEMP 36.4; O2SAT 98
--- NOTE | 2025-02-09 14:31 | PM.IMPN ---
Progress Note: A&P Assessment and Plan (1) Acute hyponatremia: Code(s): E87.1 - Hypo-osmolality and hyponatremia Status: Acute (2) Abdominal pain, acute, right upper quadrant: Code(s): R10.11 - Right upper quadrant pain Status: Acute (3) Constipation: Code(s): K59.00 - Constipation, unspecified Status: Acute (4) Debility, unspecified: Code(s): R53.81 - Other malaise Status: Acute Plan 74 y/o male presented with c/o RUQ pain, patient is a poor historian, denies any nausea or vomiting, patient did have BM yesterday, to further evaluate patient had CT scan of abdomen which showed large amount of colonic stool particularly at the cecum consistent with constipation. No other acute intra-abdominal/pelvic process. will give patient mirLarge amount of colonic stool particularly at the cecum consistent with constipation. No other acute intra-abdominal/pelvic process. on 02/06 gave patient Miralax and Colace for constipation patient stats he is passing more gas but BM but pain is little better will give Miralax and Colace again today and monitor, also pain is located along right ribs and its tender, x-ray did not show any bony injury. upon arrival patient sodium was 129, most likely due to dehydration, patient is being hydrated, also on 02/08 patient abdomen symptoms were worsening and intensive care medicine specialist gave the patient Docusate Sodium enema, he had very small BM, patient family is present and patient encourage to increase fluids intake and ambulate, I suspect with diabetes most likely he has diabetes gastroparesis, will give Reglan and will monitor, will have PT/OT evaluate the patient. Subjective Date/time seen: 02/09/25 14:31 Interval history: 74 y/o male presented with c/o RUQ pain, patient is a poor historian, denies any nausea or vomiting, patient did have BM yesterday, to further evaluate patient had CT scan of abdomen which showed large amount of colonic stool particularly at the cecum consistent with constipation. No other acute intra-abdominal/pelvic process. will give patient mirLarge amount of colonic stool particularly at the cecum consistent with constipation. No other acute intra-abdominal/pelvic process. on 02/06 gave patient Miralax and Colace for constipation patient stats he is passing more gas but BM but pain is little better will give Miralax and Colace again today and monitor, also pain is located along right ribs and its tender, x-ray did not show any bony injury. upon arrival patient sodium was 129, most likely due to dehydration, patient is being hydrated, also on 02/08 patient abdomen symptoms were worsening and intensive care medicine specialist gave the patient Docusate Sodium enema, he had very small BM, patient family is present and patient encourage to increase fluids intake and ambulate, I suspect with diabetes most likely he has diabetes gastroparesis, will give Reglan and will monitor, will have PT/OT evaluate the patient. Exam Narrative: Patient is comfortable, NAD HEENT: eyes are clear and none icteric LUNGS:CTA HEART: RR S1S2 ABD: BS+, Soft and tender in RUQ and right lower ribs. Lower extremities: no edema SKIN: nonjaundiced Neuro: grossly intact. Objective Data Vital Signs Vital Signs: Vital Signs - 24 hr 02/08/25 20:52 02/08/25 20:54 02/09/25 06:00 Temperature 36.6 C 36.2 C L Pulse Rate 78 67 Respiratory Rate 16 12 Blood Pressure 135/50 L 163/65 H Pulse Oximetry 99 99 Oxygen Delivery Room Air 02/09/25 08:00 Temperature Pulse Rate Respiratory Rate Blood Pressure Pulse Oximetry 99 Oxygen Delivery Room Air Intake/Output Intake/Output: Intake & Output 02/06/25 02/07/25 02/08/25 02/09/25 23:59 23:59 23:59 23:59 Intake Total 1340 4128 6257.5 2170 Balance 1340 4128 6257.5 2170 Meds/Results Medications: Active Medications Generic Name Dose Route Start Last Admin Trade Name Freq PRN Reason Stop Dose Admin Acetaminophen 650 mg 02/06/25 23:53 02/07/25 22:33 Acetaminophen 325 Mg Tablet PO 650 mg Q4H PRN Administration Headache Aspirin 81 mg 02/07/25 09:00 02/09/25 08:23 Aspirin 81 Mg Enteric Tablet PO 03/09/25 08:59 81 mg DAILY KETAN Administration Cyclobenzaprine HCl 5 mg 02/06/25 16:30 02/08/25 01:03 Cyclobenzaprine Hcl 5 Mg Tablet PO 5 mg Q8H PRN Administration Muscle Spasm Dextrose 12.5 gm 02/06/25 13:29 Dextrose 50% 25 Gm/50 Ml Syringe IV PUSH PRN PRN Hypoglycemia Protocol Docusate Sodium 100 mg 02/06/25 14:05 02/07/25 09:09 Docusate Sodium 100 Mg Capsule PO 100 mg Q12H PRN Administration Constipation Glipizide 5 mg 02/08/25 08:00 02/09/25 08:25 Glipizide 5 Mg Tablet PO 5 mg 0800,1630 KETAN Administration Glucagon 1 mg 02/06/25 13:29 Glucagon For Inj 1 Mg Vial IM PRN PRN Hypoglycemia Protocol Glucose 15 gm 02/06/25 13:29 Glucose Oral Gel 15 Gm Of Glucse In 37.5 Gm Tube PO PRN PRN Hypoglycemia Protocol Dextrose 1,000 mls @ 100 mls/hr 02/06/25 13:29 Dextrose 5% 1,000 Ml IVPB PRN PRN Hypoglycemia Protocol Sodium Chloride 1,000 mls @ 75 mls/hr 02/07/25 09:20 02/09/25 05:54 Normal Saline Iv IV CONT 75 mls/hr .[id number] KETAN Administration Ketorolac Tromethamine 15 mg 02/07/25 00:12 02/08/25 01:03 Ketorolac 15 Mg/Ml Vial (*Bkc) IV PUSH 15 mg Q6H PRN Administration Pain Rated 7-10 Lactulose 20 gm 02/08/25 09:00 02/09/25 08:23 Lactulose 20 Gm/30 Ml Udc PO 20 gm QAM KETAN Administration Non-Formulary ( 1 each 02/07/25 09:00 02/09/25 08:24 Benazepril Hcl 20 Mg PO 03/09/25 08:59 1 each Oral Tablet) DAILY KETAN Administration Pantoprazole Sodium 40 mg 02/07/25 09:00 02/09/25 08:23 Pantoprazole 40 Mg Tablet PO 40 mg Q12HR KETAN Administration Polyethylene Glycol 17 gm 02/08/25 09:00 02/09/25 08:23 Polyethylene Glycol 3350 17 Gm Powd.Pack PO 17 gm BID KETAN Administration Sitagliptin Phosphate 100 mg 02/07/25 08:00 02/09/25 08:23 Sitagliptin Phosphate 100 Mg Tablet PO 100 mg DAILY@0800 KETAN Administration Tamsulosin HCl 0.4 mg 02/06/25 21:00 02/08/25 20:54 Tamsulosin Hcl 0.4 Mg Capsule PO 0.4 mg HS KETAN Administration Verapamil HCl 120 mg 02/06/25 13:51 02/09/25 08:23 Verapamil Hcl Er 120 Mg Tablet PO 03/09/25 13:39 120 mg DAILY@0800 KETAN Administration Radiology Results: ITS Impressions Abdomen/Pelvis CT 02/06/25 09:25 IMPRESSION: 1. Large amount of colonic stool particularly at the cecum consistent with constipation. No other acute intra-abdominal/pelvic process. 2. Small sliding-type hiatal hernia. 2. Bladder diverticulum which may be secondary to chronic outlet obstruction from the enlarged prostate. Chest X-Ray 02/06/25 14:18 IMPRESSION: 1: NO ACUTE CARDIOPULMONARY DISEASE. Labs Labs: Laboratory Results - last 24 hr 02/08/25 02/08/25 02/09/25 16:39 19:56 05:38 WBC 6.8 RBC 4.05 L Hgb 11.9 L Hct 37.6 L MCV 92.8 MCH 29.4 MCHC 31.6 L RDW 12.7 Plt Count 296 MPV 9.0 Sodium 135 L Potassium 4.2 Chloride 100 Carbon Dioxide 26 Anion Gap 9 BUN 16 Creatinine 0.96 Estim Creat Clear Calc 64 Estimated GFR > 60 Glucose 142 H POC Capillary Glucose 153 H 176 H Calcium 9.2 Magnesium 2.4 H 02/09/25 02/09/25 07:32 11:36 WBC RBC Hgb Hct MCV MCH MCHC RDW Plt Count MPV Sodium Potassium Chloride Carbon Dioxide Anion Gap BUN Creatinine Estim Creat Clear Calc Estimated GFR Glucose POC Capillary Glucose 128 H 150 H Calcium Magnesium
[2025-02-09 16:31] LABS: Glucose Point of Care 137 mg/dl (65-105)
[2025-02-09 19:33] VITALS: PULSE 77; RESP 18; TEMP 37; O2SAT 99
[2025-02-09 19:37] LABS: Glucose Point of Care 184 mg/dl (65-105)
[2025-02-09] MEDS: TAMSULOSIN HCL 0.4 MG CAPSULE PO (20:22)
[2025-02-09 21:21] VITALS: BP 157/84; PULSE 64; RESP 16; TEMP 37.2; O2SAT 99
[2025-02-09 22:00] VITALS: BP 157/84; PULSE 77; RESP 18; TEMP 37; O2SAT 99
--- NOTE | 2025-02-10 01:00 | PC.NURSE ---
PHYSICAL LABORATORY ASSISTANT did not notify nurse pt 2100 blood pressure: 185/70 P 64. Patient previously walked 5 laps around unit. Pt stable at this time, resting in bed without distress. Will continue to monitor vital signs.
[2025-02-10 04:32] VITALS: BP 169/70; PULSE 66; RESP 16; TEMP 36.8; O2SAT 100
[2025-02-10 06:15] LABS: Hematocrit 37.6 % (42.0-52.0); Hemoglobin 11.8 g/dL (14.0-18.0); Mean Corpuscular HGB Conc 31.4 g/dl (32-36); Mean Corpuscular Hemoglobin 29.5 pg (26-34); Mean Platelet Volume 9.2 fl (7.4-10.4); Platelet Count Result 303 k/mm3 (150-375); Red Cell Distribution Width 12.5 % (11.5-14.5); White Blood Count 6.3 K/mm3 (4.5-10.0)
[2025-02-10 06:45] LABS: Anion Gap 8 mmol/L (4-12); Blood Urea Nitrogen 14 mg/dL (9-20); Calcium 9.3 mg/dL (8.4-10.2); Carbon Dioxide 25 mmol/L (22-30); Chloride 101 mmol/L (98-107); Estimated CRCL calculation 72 ml/min; Estimated Glomerular Filt Rate > 60; Glucose 141 mg/dL (65-110); Magnesium 2.3 mg/dL (1.6-2.3); Potassium 4.5 mmol/L (3.4-5.0); Sodium 134 mmol/L (137-145)
[2025-02-10] MEDS: SODIUM CHLORIDE 0.9% IV 1,000 ML 75 ML IV CONT (06:50)
[2025-02-10 08:19] LABS: Glucose Point of Care 145 mg/dl (65-105)
[2025-02-10] MEDS: LACTULOSE 20 GM/30 ML UDC PO (08:33)
[2025-02-10] MEDS: SITagliptin PHOSPHATE 100 MG TABLET PO (08:33)
[2025-02-10] MEDS: polyethylene glycoL 3350 17 GM POWD.PACK PO ×2 (08:33→16:34)
[2025-02-10] MEDS: ASPIRIN 81 MG ENTERIC TABLET PO (08:33)
[2025-02-10] MEDS: PANTOPRAZOLE 40 MG TABLET PO ×2 (08:33→22:22)
[2025-02-10] MEDS: VERAPAMIL HCL ER 120 MG TABLET PO (08:33)
[2025-02-10] MEDS: BENAZEPRIL HCL 20 MG 1 EACH PO (08:34)
[2025-02-10] MEDS: glipiZIDE 5 MG TABLET PO ×2 (08:35→16:36)
[2025-02-10] MEDS: DOCUSATE SODIUM 100 MG CAPSULE PO ×2 (09:21→22:22)
[2025-02-10] MEDS: METOCLOPRAMIDE HCL INJ 10 MG/2 ML VIAL IV PUSH (09:22)
[2025-02-10] MEDS: BISACODYL 10 MG SUPPOSITORY RECTAL (09:24)
--- NOTE | 2025-02-10 09:56 | WPDGICN ---
Assessment and Plan Assessment and plan (1) Constipation: Qualifiers: Constipation type: unspecified constipation type Qualified Code(s): K59.00 - Constipation, unspecified Code(s): K59.00 - Constipation, unspecified Status: Acute (2) Abdominal pain, acute, right upper quadrant: Code(s): R10.11 - Right upper quadrant pain Status: Acute (3) Stenosis colon: Code(s): K56.699 - Other intestinal obstruction unspecified as to partial versus complete obstruction Status: Acute (4) Gastroparesis: Code(s): K31.84 - Gastroparesis Status: Acute (5) Weight loss: Code(s): R63.4 - Abnormal weight loss Status: Acute (6) Hematochezia: Code(s): K92.1 - Melena Status: Acute (7) Hyponatremia: Code(s): E87.1 - Hypo-osmolality and hyponatremia Status: Acute Plan 1. Chronic constipation/colonic stenosis/weight loss/hematochezia: CT on admission showed a large amount of colonic stool at the cecum. KUB today showed increased stool burden but no signs of obstruction or impaction. Last colonoscopy 02/04/2015 at which time patient was noted to have severe stenosis in the mid descending colon that was not transversed. He was also noted to have small internal hemorrhoids. Per endoscopy report a barium enema was ordered, but unclear if this was ever done as I have no results. Following colonoscopy he was also recommended to have a repeat colonoscopy with 2 day prep but no follow up colonoscopy. Patient states he had a repeat colonoscopy the following year by Dr. Hamilton and per patient this colonoscopy was normal and he was recommended to have a 10 year repeat, endoscopy reports not available at time of visit. Since admission the patient has been given Miralax, Colace, lactulose and docusate enema with only small BM. Patient states that he normally has 1-2 formed non urgent bowel movements daily without straining but 1 week prior to his admission he started having constipation. Patient states that over the past few months he had had some unexplained weight loss. He states that his normal baseline weight is between 170-175 lb and during a recent office visit was told that his weight was 162 lb. After being told that he lost weight he states that he started eating and his weight is back up. Prior to admission the patient states that he was having trace intermittent rectal bleeding with blood noted on toilet paper after bowel movements. Denies any rectal bleeding since admission. DDX: Acute constipation versus motility disorder versus inflammatory process versus neoplasm Plan for colonoscopy on following a 2 day bowel prep with Miralax split prep Simethicone as needed to help with increased intestinal gas Labs ordered to check thyroid function 2. Gastroparesis/RUQ pain: No prior Hx of EGD. Most recent imaging showed a small sliding hiatal hernia but no other findings to explain RUQ pain. Hospitalist suspects diabetic gastroparesis and patient was given Reglan x 2 doses. Patient states that his right upper quadrant pain was described as dull to sharp and intermittent in nature. Prior to admission this pain would increase with large meals and improved with bowel movements or if he passes gas. He states that this pain has improved since admission. He denies any chronic nausea, vomiting, early satiety, or appetite loss which would be concerning for gastroparesis. Right upper quadrant abdominal pain likely secondary to known constipation and increased intestinal gas less likely gastroparesis Colonoscopy on , hopefully bowel prep and simethicone will help manage symptoms If symptoms persist following endoscopic evaluation may consider gastric emptying study as outpatient 3. Hyponatremia: On admission patient found to have a sodium of 129. Today sodium at 134. Primary care team to continue monitoring and correct Thank you very much for allowing me to share in the care of this very nice patient. This report may have been done utilizing a voice recognition system. Attempts have been made to correct errors. However, there may be uncorrected grammatical, spelling, and recognition errors present. GI Consult Note Consult date/time: 02/10/25 09:56 Reason for consult: Chronic constipation and possible diabetic gastroparesis HPI: Angus Delaney is a 74 year old male with PMSH of chronic constipation, HTN, diabetes and colonic stenosis. He presented to the ER 02/06/2025 with complaints of abdominal and flank pain. Patient was admitted for acute hyponatremia, right upper quadrant pain and constipation. GI has been consulted for chronic constipation and diabetic gastroparesis. Patient was accompanied by his Karoline throughout the entire visit. Patient states that he has been having right upper quadrant pain that varies from dull to sharp and is intermittent in nature. Prior to admission he states that this pain would get worse after a large meal and which temporarily improved with bowel movements. Prior to admission he states that this pain was a 7-9 out of 10 and today is 3-4 out of 10. He states that his pain had been occurring intermittently for a few weeks. Patient states that over the past few months his weight went from his baseline of 170-175 to 162 lb. After he was told that his weight was 162 he has been consuming more food trying to gain weight. He was treated at the beginning of January with a 5 day course of antibiotics for a UTI. He has recently seen by Urology and was told that he has a normal size prostate and a PSA was ordered, results unknown. Prior to admission he was having some nausea without vomiting but denies any nausea since admission. He admits to abdominal bloating that has increased since his admission. Prior to his hospitalization he was having 1-2 formed non urgent bowel movements daily without straining but a week prior to his hospitalization he started having constipation. He admits to trace intermittent rectal bleeding noted on toilet paper after bowel movements. Denies diarrhea, odynophagia, dysphagia, reflux, regurgitation, early satiety, appetite loss, diarrhea, or melena. He uses ibuprofen as needed is on aspirin 81 mg daily but denies any other anticoagulation. He is a nondrinker nonsmoker and denies marijuana use. Family history negative for CRC or IBD. ENDOSCOPY HISTORY: EGD: For patient's last EGD > 50 years ago COLONOSCOPY: 02/04/[address] Kraft for rectal bleeding Findings: In the mid descending colon, a severe, unspecified stenosis was noted. The stenosis was not transverse. A moderate amount of stool seen In the rectum, a few small size internal hemorrhoids were seen Repeat colonoscopy with 2 day prep recommended LABS AND STOOL STUDIES: Labs 02/10/2025: Sodium 134, potassium 4.5, BUN 14, creatinine 0.85, GFR >60, calcium 9.3, magnesium 2.3 WBC 6, Hgb 12, Hct 38, MCV 94, platelets 303 Labs 02/06/2025: Total bilirubin 0.5, AST 27, ALT 26, alkaline phosphatase 94, albumin 4.4 and lipase 82 IMAGING: Chest Xray 02/06/2025: IMPRESSION: 1: NO ACUTE CARDIOPULMONARY DISEASE. CT abd/pelvis w/contrast 02/06/2025: IMPRESSION: 1. Large amount of colonic stool particularly at the cecum consistent with constipation. No other acute intra-abdominal/pelvic process. 2. Small sliding-type hiatal hernia. 2. Bladder diverticulum which may be secondary to chronic outlet obstruction from the enlarged prostate. Review of Systems Constitutional: Constitutional: Reports as per HPI and Reports fatigue ENT: Reports as per HPI Cardiovascular: Cardiovascular: Reports as per HPI, Denies chest pain, Reports leg edema and Denies dyspnea Respiratory: Respiratory: Denies cough and Denies dyspnea Gastrointestinal: Gastrointestinal: Reports as per HPI Musculoskeletal: Musculoskeletal: Reports as per HPI Integumentary/Breasts: Skin/Breast: Reports as per HPI Psychiatric: Psychiatric: Reports as per HPI Endocrine: Endocrine: Reports no additional endocrine complaints Hematologic/Lymphatic: Hematologic/Lymphatic: Reports no additional hematologic/lymphatic complaints [facility] Family History Family History (Updated 04/14/16 @ 23:21 by DOCTOR UNKNOWN) Sibling Patient's sister is in good health Social History Social History Smoking status: Never smoker Alcohol intake: former Substance use: never Substance use type: does not use Do You Feel Safe in your Home?: Yes Lack of Transportation: No Lack of Food: Never True Current Housing: I Have Housing Concerned About Future Housing: No Difficulty Paying Gas/Electric Bills: No Difficulty Paying for Meds: No Currently Unemployed: No Education: Bachelor's Degree Difficulty w/ Childcare or Family Care: No Spiritual care concerns: No Meds Home Medications and Allergies Home Medications ?Medication ?Instructions ?Recorded ?Confirmed ?Type aspirin 81 mg tablet 81 mg PO DAILY 02/06/25 02/06/25 History benazepril 20 mg tablet 20 mg PO DAILY 02/06/25 02/06/25 History glipizide 5 mg tablet 5 mg PO BID 02/06/25 02/06/25 History metformin 500 mg tablet 1,000 mg PO BID 02/06/25 02/06/25 History omeprazole 20 mg capsule,delayed 20 mg PO .night PRN as needed 02/06/25 02/06/25 History release sitagliptin phosphate 100 mg 100 mg PO DAILY@0800 02/06/25 02/06/25 History tablet (Januvia) tamsulosin 0.4 mg capsule 0.4 mg PO .night 02/06/25 02/06/25 History verapamil 120 mg tablet,extended 120 mg PO DAILY@0800 02/06/25 02/06/25 History release Allergies Allergy/AdvReac Type Severity Reaction Status Date / Time No Known Allergies Allergy Verified 02/06/25 07:40 Vital Signs Vital Signs - 24 hr 02/09/25 14:00 02/09/25 19:33 02/09/25 20:26 Temperature 97.5 F L 98.6 F Pulse Rate 71 77 Respiratory Rate 20 18 Blood Pressure 169/67 H Pulse Oximetry 98 99 Oxygen Delivery Room Air 02/09/25 21:21 02/09/25 22:00 02/10/25 04:32 Temperature 99.0 F 98.6 F 98.2 F Pulse Rate 64 77 66 Respiratory Rate 16 18 16 Blood Pressure 157/84 H 157/84 H 169/70 H Pulse Oximetry 99 99 100 Oxygen Delivery Exam Const: General: cooperative, healthy appearing, comfortable, no acute distress and well developed Orientation/consciousness: oriented to person, oriented to place, oriented to time and patient oriented x3 HENMT: Head: normal to inspection, normocephalic and atraumatic Mouth: Yes Normal oral and palatal mucosa present and Yes moist mucous membranes Eyes: General: appearance normal, both eyes and all related structures Conjunctivae: conjunctivae normal Sclera: sclerae normal Pupils: Equal, round and reactive pupils present Neck: Neck: normal visual inspection Chest: Chest palpation & inspection: normal inspection of the chest Resp: Effort & Inspection: normal respiratory effort and able to speak in complete sentences Auscultation: clear to auscultation bilaterally Cardio: Jugular venous distension: no JVD Rate: regular rate Rhythm: regular rhythm Heart sounds: S1 normal heart sound present and S2 normal heart sound present GI: Inspection: normal to inspection and distended GI Palp: Yes Firmness to palpation present (GI), No Tenderness to palpation present (GI), No Guarding due to palpation present (GI) and Yes No hepatosplenomegaly present Auscultation: normal bowel sounds Rectal Exam: deferred Skin: General skin exam: normal color and no rashes or lesions noted Neuro: General: oriented to person, oriented to place, oriented to time and patient oriented x3 Cranial nerves: Yes Equal, round and reactive pupils present Speech: normal speech Extrem: General: pedal edema Psych: Appearance: grossly normal and well kempt Affect: normal affect Results Labs 02/10/25 05:52 02/10/25 05:52 Labs: Short CBC 02/10/25 Range/Units 05:52 WBC 6.3 (4.5-10.0) K/mm3 Hgb 11.8 L (14.0-18.0) g/dL Hct 37.6 L (42.0-52.0) % Plt Count 303 (150-375) k/mm3 [facility] 02/10/25 05:52 Sodium 134 L Potassium 4.5 Chloride 101 Carbon Dioxide 25 BUN 14 Creatinine 0.85 Glucose 141 H Calcium 9.3
[2025-02-10 11:55] LABS: Glucose Point of Care 178 mg/dl (65-105)
[2025-02-10] MEDS: SIMETHICONE 125 MG CHEW TAB PO ×3 (12:35→22:22)
[2025-02-10 13:03] LABS: T4 Thyroxine 7.68 ug/dL (5.53-11.0)
[2025-02-10 14:00] VITALS: BP 113/52; PULSE 62; RESP 20; TEMP 36.4
--- NOTE | 2025-02-10 16:33 | PM.IMPN ---
Progress Note: A&P Assessment and Plan (1) Acute hyponatremia: Code(s): E87.1 - Hypo-osmolality and hyponatremia Status: Acute (2) Abdominal pain, acute, right upper quadrant: Code(s): R10.11 - Right upper quadrant pain Status: Acute (3) Constipation: Qualifiers: Constipation type: unspecified constipation type Qualified Code(s): K59.00 - Constipation, unspecified Code(s): K59.00 - Constipation, unspecified Status: Acute (4) Debility, unspecified: Code(s): R53.81 - Other malaise Status: Acute Plan 74 y/o male presented with c/o RUQ pain, patient is a poor historian, denies any nausea or vomiting, patient did have BM yesterday, to further evaluate patient had CT scan of abdomen which showed large amount of colonic stool particularly at the cecum consistent with constipation. No other acute intra-abdominal/pelvic process. will give patient mirLarge amount of colonic stool particularly at the cecum consistent with constipation. No other acute intra-abdominal/pelvic process. on 02/06 gave patient Miralax and Colace for constipation patient stats he is passing more gas but BM but pain is little better will give Miralax and Colace again today and monitor, also pain is located along right ribs and its tender, x-ray did not show any bony injury. upon arrival patient sodium was 129, most likely due to dehydration, patient is being hydrated, also on 02/08 patient abdomen symptoms were worsening and billing collections specialist gave the patient Docusate Sodium enema, he had very small BM, patient family is present and patient encourage to increase fluids intake and ambulate, I suspect with diabetes most likely he has diabetes gastroparesis, gave Reglan 5mg IV and continued miralax and dulcolax, patient did have little BM hard stool, will increase Reglan to 10mg IV and dulcolax supp. will consult GI, will encourage patient to ambulate, will monitor. Subjective Date/time seen: 02/10/25 16:33 Interval history: 74 y/o male presented with c/o RUQ pain, patient is a poor historian, denies any nausea or vomiting, patient did have BM yesterday, to further evaluate patient had CT scan of abdomen which showed large amount of colonic stool particularly at the cecum consistent with constipation. No other acute intra-abdominal/pelvic process. will give patient mirLarge amount of colonic stool particularly at the cecum consistent with constipation. No other acute intra-abdominal/pelvic process. on 02/06 gave patient Miralax and Colace for constipation patient stats he is passing more gas but BM but pain is little better will give Miralax and Colace again today and monitor, also pain is located along right ribs and its tender, x-ray did not show any bony injury. upon arrival patient sodium was 129, most likely due to dehydration, patient is being hydrated, also on 02/08 patient abdomen symptoms were worsening and billing collections specialist gave the patient Docusate Sodium enema, he had very small BM, patient family is present and patient encourage to increase fluids intake and ambulate, I suspect with diabetes most likely he has diabetes gastroparesis, gave Reglan 5mg IV and continued miralax and dulcolax, patient did have little BM hard stool, will increase Reglan to 10mg IV and dulcolax supp. will consult GI, will encourage patient to ambulate, will monitor. Exam Narrative: Patient is comfortable, NAD HEENT: eyes are clear and none icteric LUNGS:CTA HEART: RR S1S2 ABD: BS+, Soft and tender in RUQ and right lower ribs. Lower extremities: no edema SKIN: nonjaundiced Neuro: grossly intact. Objective Data Vital Signs Vital Signs: Vital Signs - 24 hr 02/09/25 19:33 02/09/25 20:26 02/09/25 21:21 Temperature 37.0 C 37.2 C Pulse Rate 77 64 Respiratory Rate 18 16 Blood Pressure 157/84 H Pulse Oximetry 99 99 Oxygen Delivery Room Air 02/09/25 22:00 02/10/25 04:32 02/10/25 08:00 Temperature 37.0 C 36.8 C Pulse Rate 77 66 Respiratory Rate 18 16 Blood Pressure 157/84 H 169/70 H Pulse Oximetry 99 100 Oxygen Delivery Room Air Intake/Output Intake/Output: Intake & Output 02/07/25 02/08/25 02/09/25 02/10/25 23:59 23:59 23:59 23:59 Intake Total 4128 6257.5 6336.3 1950 Balance 4128 6257.5 6336.3 1949 Meds/Results Medications: Active Medications Generic Name Dose Route Start Last Admin Trade Name Freq PRN Reason Stop Dose Admin Acetaminophen 650 mg 02/06/25 23:53 02/07/25 22:33 Acetaminophen 325 Mg Tablet PO 650 mg Q4H PRN Administration Headache Aspirin 81 mg 02/07/25 09:00 02/10/25 08:33 Aspirin 81 Mg Enteric Tablet PO 03/09/25 08:59 81 mg DAILY KETAN Administration Cyclobenzaprine HCl 5 mg 02/06/25 16:30 02/08/25 01:03 Cyclobenzaprine Hcl 5 Mg Tablet PO 5 mg Q8H PRN Administration Muscle Spasm Dextrose 12.5 gm 02/06/25 13:29 Dextrose 50% 25 Gm/50 Ml Syringe IV PUSH PRN PRN Hypoglycemia Protocol Docusate Sodium 100 mg 02/06/25 14:05 02/10/25 09:21 Docusate Sodium 100 Mg Capsule PO 100 mg Q12H PRN Administration Constipation Glipizide 5 mg 02/08/25 08:00 02/10/25 08:35 Glipizide 5 Mg Tablet PO 5 mg 0800,1630 KETAN Administration Glucagon 1 mg 02/06/25 13:29 Glucagon For Inj 1 Mg Vial IM PRN PRN Hypoglycemia Protocol Glucose 15 gm 02/06/25 13:29 Glucose Oral Gel 15 Gm Of Glucse In 37.5 Gm Tube PO PRN PRN Hypoglycemia Protocol Dextrose 1,000 mls @ 100 mls/hr 02/06/25 13:29 Dextrose 5% 1,000 Ml IVPB PRN PRN Hypoglycemia Protocol Ketorolac Tromethamine 15 mg 02/07/25 00:12 02/08/25 01:03 Ketorolac 15 Mg/Ml Vial (*Bkc) IV PUSH 15 mg Q6H PRN Administration Pain Rated 7-10 Lactulose 20 gm 02/08/25 09:00 02/10/25 08:33 Lactulose 20 Gm/30 Ml Udc PO 20 gm QAM KETAN Administration Non-Formulary ( 1 each 02/07/25 09:00 02/10/25 08:34 Benazepril Hcl 20 Mg PO 03/09/25 08:59 1 each Oral Tablet) DAILY KETAN Administration Pantoprazole Sodium 40 mg 02/07/25 09:00 02/10/25 08:33 Pantoprazole 40 Mg Tablet PO 40 mg Q12HR KETAN Administration Polyethylene Glycol 17 gm 02/08/25 09:00 02/10/25 08:33 Polyethylene Glycol 3350 17 Gm Powd.Pack PO 17 gm BID KETAN Administration Polyethylene Glycol 119 gm 02/11/25 20:00 Polyethylene Glycol 3350 238 Gm Bottle PO 02/12/25 05:01 BID@0500,2000 [facility] Simethicone 125 mg 02/10/25 13:00 02/10/25 12:35 Simethicone 125 Mg Chew Tab PO 125 mg QID KETAN Administration Sitagliptin Phosphate 100 mg 02/07/25 08:00 02/10/25 08:33 Sitagliptin Phosphate 100 Mg Tablet PO 100 mg DAILY@0800 KETAN Administration Tamsulosin HCl 0.4 mg 02/06/25 21:00 02/09/25 20:22 Tamsulosin Hcl 0.4 Mg Capsule PO 0.4 mg HS KETAN Administration Verapamil HCl 120 mg 02/06/25 13:51 02/10/25 08:33 Verapamil Hcl Er 120 Mg Tablet PO 03/09/25 13:39 120 mg DAILY@0800 KETAN Administration Radiology Results: ITS Impressions Abdomen/Pelvis CT 02/06/25 09:25 IMPRESSION: 1. Large amount of colonic stool particularly at the cecum consistent with constipation. No other acute intra-abdominal/pelvic process. 2. Small sliding-type hiatal hernia. 2. Bladder diverticulum which may be secondary to chronic outlet obstruction from the enlarged prostate. Chest X-Ray 02/06/25 14:18 IMPRESSION: 1: NO ACUTE CARDIOPULMONARY DISEASE. Abdomen X-Ray 02/10/25 11:45 Impression: 1: Fecal impaction of the colon. Labs Labs: Laboratory Results - last 24 hr 02/09/25 02/10/25 02/10/25 19:20 05:47 05:52 WBC 6.3 RBC 4.00 L Hgb 11.8 L Hct 37.6 L MCV 94.0 MCH 29.5 MCHC 31.4 L RDW 12.5 Plt Count 303 MPV 9.2 Sodium 134 L Potassium 4.5 Chloride 101 Carbon Dioxide 25 Anion Gap 8 BUN 14 Creatinine 0.85 Estim Creat Clear Calc 72 Estimated GFR > 60 Glucose 141 H POC Capillary Glucose 184 H Calcium 9.3 Magnesium 2.3 TSH 6.070 H Thyroxine (T4) 7.68 02/10/25 02/10/25 08:08 11:45 WBC RBC Hgb Hct MCV MCH MCHC RDW Plt Count MPV Sodium Potassium Chloride Carbon Dioxide Anion Gap BUN Creatinine Estim Creat Clear Calc Estimated GFR Glucose POC Capillary Glucose 145 H 178 H Calcium Magnesium TSH Thyroxine (T4)
[2025-02-10 17:10] LABS: Glucose Point of Care 96 mg/dl (65-105)
[2025-02-10 20:35] LABS: Glucose Point of Care 137 mg/dl (65-105)
[2025-02-10 21:03] VITALS: BP 129/54; PULSE 58; RESP 16; TEMP 36.3; O2SAT 98
[2025-02-10] MEDS: TAMSULOSIN HCL 0.4 MG CAPSULE PO (22:21)
[2025-02-11 06:00] VITALS: BP 145/85; PULSE 80; RESP 16; TEMP 36.1; O2SAT 100
[2025-02-11 06:57] LABS: Hematocrit 39.1 % (42.0-52.0); Hemoglobin 12.4 g/dL (14.0-18.0); Mean Corpuscular HGB Conc 31.7 g/dl (32-36); Mean Corpuscular Hemoglobin 29.1 pg (26-34); Mean Corpuscular Volume 91.8 fl (80-100); Platelet Count Result 314 k/mm3 (150-375); Red Blood Count 4.26 M/mm3 (4.6-6.20); Red Cell Distribution Width 12.7 % (11.5-14.5); White Blood Count 6.5 K/mm3 (4.5-10.0)
[2025-02-11 07:01] LABS: Anion Gap 10 mmol/L (4-12); Blood Urea Nitrogen 15 mg/dL (9-20); Calcium 9.7 mg/dL (8.4-10.2); Carbon Dioxide 26 mmol/L (22-30); Chloride 97 mmol/L (98-107); Estimated CRCL calculation 60 ml/min; Estimated Glomerular Filt Rate > 60; Glucose 174 mg/dL (65-110); Magnesium 2.2 mg/dL (1.6-2.3); Potassium 4.9 mmol/L (3.4-5.0); Sodium 133 mmol/L (137-145)
--- NOTE | 2025-02-11 07:27 | WPDGIPROGNO ---
Progress Note: A&P Assessment and Plan (1) Constipation: Qualifiers: Constipation type: unspecified constipation type Qualified Code(s): K59.00 - Constipation, unspecified Code(s): K59.00 - Constipation, unspecified Status: Acute Assessment and Plan: patient will receive 4 doses of MiraLax within the next 24 hours: 10:00 a.m., 2:00 p.m., 8:00 p.m. today and 5:00 a.m. tomorrow In addition patient for colon prep for tomorrow's colonoscopy, to investigate new onset constipation. Subjective Date/time seen: 02/11/25 07:27 Objective Data Vital Signs Vital Signs: Vital Signs - 24 hr 02/10/25 08:00 02/10/25 14:00 02/10/25 21:03 Temperature 97.5 F L 97.3 F L Pulse Rate 62 58 L Respiratory Rate 20 16 Blood Pressure 113/52 L 129/54 L Pulse Oximetry 98 Oxygen Delivery Room Air 02/10/25 22:22 02/11/25 06:00 Temperature 97 F L Pulse Rate 80 Respiratory Rate 16 Blood Pressure 145/85 H Pulse Oximetry 100 Oxygen Delivery Room Air Intake/Output Intake/Output: Intake & Output 02/08/25 02/09/25 02/10/25 02/11/25 23:59 23:59 23:59 23:59 Intake Total 6257.5 6336.3 2810 450 Balance 6257.5 6336.3 2810 450 Meds/Results Medications: Active Medications Generic Name Dose Route Start Last Admin Trade Name Freq PRN Reason Stop Dose Admin Acetaminophen 650 mg 02/06/25 23:53 02/07/25 22:33 Acetaminophen 325 Mg Tablet PO 650 mg Q4H PRN Administration Headache Aspirin 81 mg 02/07/25 09:00 02/10/25 08:33 Aspirin 81 Mg Enteric Tablet PO 03/09/25 08:59 81 mg DAILY KETAN Administration Cyclobenzaprine HCl 5 mg 02/06/25 16:30 02/08/25 01:03 Cyclobenzaprine Hcl 5 Mg Tablet PO 5 mg Q8H PRN Administration Muscle Spasm Dextrose 12.5 gm 02/06/25 13:29 Dextrose 50% 25 Gm/50 Ml Syringe IV PUSH PRN PRN Hypoglycemia Protocol Docusate Sodium 100 mg 02/06/25 14:05 02/10/25 22:22 Docusate Sodium 100 Mg Capsule PO 100 mg Q12H PRN Administration Constipation Glipizide 5 mg 02/08/25 08:00 02/10/25 16:36 Glipizide 5 Mg Tablet PO 5 mg 0800,1630 KETAN Administration Glucagon 1 mg 02/06/25 13:29 Glucagon For Inj 1 Mg Vial IM PRN PRN Hypoglycemia Protocol Glucose 15 gm 02/06/25 13:29 Glucose Oral Gel 15 Gm Of Glucse In 37.5 Gm Tube PO PRN PRN Hypoglycemia Protocol Dextrose 1,000 mls @ 100 mls/hr 02/06/25 13:29 Dextrose 5% 1,000 Ml IVPB PRN PRN Hypoglycemia Protocol Ketorolac Tromethamine 15 mg 02/07/25 00:12 02/08/25 01:03 Ketorolac 15 Mg/Ml Vial (*Bkc) IV PUSH 15 mg Q6H PRN Administration Pain Rated 7-10 Lactulose 20 gm 02/08/25 09:00 02/10/25 08:33 Lactulose 20 Gm/30 Ml Udc PO 20 gm QAM KETAN Administration Non-Formulary ( 1 each 02/07/25 09:00 02/10/25 08:34 Benazepril Hcl 20 Mg PO 03/09/25 08:59 1 each Oral Tablet) DAILY KETAN Administration Pantoprazole Sodium 40 mg 02/07/25 09:00 02/10/25 22:22 Pantoprazole 40 Mg Tablet PO 40 mg Q12HR KETAN Administration Polyethylene Glycol 17 gm 02/08/25 09:00 02/10/25 16:34 Polyethylene Glycol 3350 17 Gm Powd.Pack PO 17 gm BID KETAN Administration Polyethylene Glycol 119 gm 02/11/25 08:00 Polyethylene Glycol 3350 238 Gm Bottle PO 02/12/25 05:01 0800,1400,2000,0500 KETAN Simethicone 125 mg 02/10/25 13:00 02/10/25 22:22 Simethicone 125 Mg Chew Tab PO 125 mg QID KETAN Administration Sitagliptin Phosphate 100 mg 02/07/25 08:00 02/10/25 08:33 Sitagliptin Phosphate 100 Mg Tablet PO 100 mg DAILY@0800 KETAN Administration Tamsulosin HCl 0.4 mg 02/06/25 21:00 02/10/25 22:21 Tamsulosin Hcl 0.4 Mg Capsule PO 0.4 mg HS KETAN Administration Verapamil HCl 120 mg 02/06/25 13:51 02/10/25 08:33 Verapamil Hcl Er 120 Mg Tablet PO 03/09/25 13:39 120 mg DAILY@0800 KETAN Administration Radiology Results: ITS Impressions Abdomen/Pelvis CT 02/06/25 09:25 IMPRESSION: 1. Large amount of colonic stool particularly at the cecum consistent with constipation. No other acute intra-abdominal/pelvic process. 2. Small sliding-type hiatal hernia. 2. Bladder diverticulum which may be secondary to chronic outlet obstruction from the enlarged prostate. Chest X-Ray 02/06/25 14:18 IMPRESSION: 1: NO ACUTE CARDIOPULMONARY DISEASE. Abdomen X-Ray 02/10/25 11:45 Impression: 1: Fecal impaction of the colon. Labs Labs: Laboratory Results - last 24 hr 02/10/25 02/10/25 02/10/25 05:47 08:08 11:45 WBC RBC Hgb Hct MCV MCH MCHC RDW Plt Count MPV Sodium Potassium Chloride Carbon Dioxide Anion Gap BUN Creatinine Estim Creat Clear Calc Estimated GFR Glucose POC Capillary Glucose 145 H 178 H Calcium Magnesium TSH 6.070 H Thyroxine (T4) 7.68 02/10/25 02/10/25 02/11/25 17:03 20:27 06:40 WBC 6.5 RBC 4.26 L Hgb 12.4 L Hct 39.1 L MCV 91.8 MCH 29.1 MCHC 31.7 L RDW 12.7 Plt Count 314 MPV 9.0 Sodium 133 L Potassium 4.9 Chloride 97 L Carbon Dioxide 26 Anion Gap 10 BUN 15 Creatinine 1.04 Estim Creat Clear Calc 60 Estimated GFR > 60 Glucose 174 H POC Capillary Glucose 96 137 H Calcium 9.7 Magnesium 2.2 TSH Thyroxine (T4)
[2025-02-11 08:46] LABS: Glucose Point of Care 141 mg/dl (65-105)
[2025-02-11] MEDS: polyethylene glycoL 3350 238 GM BOTTLE 119 GM PO ×3 (09:18→20:21)
[2025-02-11] MEDS: VERAPAMIL HCL ER 120 MG TABLET PO (09:19)
[2025-02-11] MEDS: PANTOPRAZOLE 40 MG TABLET PO ×2 (09:19→20:25)
[2025-02-11] MEDS: ASPIRIN 81 MG ENTERIC TABLET PO (09:19)
[2025-02-11] MEDS: SIMETHICONE 125 MG CHEW TAB PO ×4 (09:19→20:25)
[2025-02-11] MEDS: SITagliptin PHOSPHATE 100 MG TABLET PO (09:19)
[2025-02-11] MEDS: BENAZEPRIL HCL 20 MG 1 EACH PO (09:20)
[2025-02-11] MEDS: LACTULOSE 20 GM/30 ML UDC PO (09:24)
[2025-02-11] MEDS: glipiZIDE 5 MG TABLET PO ×2 (09:29→16:28)
[2025-02-11 11:27] LABS: Glucose Point of Care 189 mg/dl (65-105)
[2025-02-11 14:00] VITALS: BP 155/67; PULSE 77; RESP 16; TEMP 36.3; O2SAT 100
[2025-02-11 16:30] LABS: Glucose Point of Care 78 mg/dl (65-105)
--- NOTE | 2025-02-11 17:14 | P.PNIM_ITS ---
Progress Note: A&P Assessment and Plan (1) Acute hyponatremia: Code(s): E87.1 - Hypo-osmolality and hyponatremia Status: Acute (2) Abdominal pain, acute, right upper quadrant: Code(s): R10.11 - Right upper quadrant pain Status: Acute (3) Constipation: Qualifiers: Constipation type: unspecified constipation type Qualified Code(s): K59.00 - Constipation, unspecified Code(s): K59.00 - Constipation, unspecified Status: Acute (4) Debility, unspecified: Code(s): R53.81 - Other malaise Status: Acute Plan 74 y/o male presented with c/o RUQ pain, patient is a poor historian, denies any nausea or vomiting, patient did have BM yesterday, to further evaluate patient had CT scan of abdomen which showed large amount of colonic stool particularly at the cecum consistent with constipation. No other acute intra-abdominal/pelvic process. will give patient mirLarge amount of colonic stool particularly at the cecum consistent with constipation. No other acute intra-abdominal/pelvic process. on 02/06 gave patient Miralax and Colace for constipation patient stats he is passing more gas but BM but pain is little better will give Miralax and Colace again today and monitor, also pain is located along right ribs and its tender, x-ray did not show any bony injury. upon arrival patient sodium was 129, most likely due to dehydration, patient is being hydrated, also on 02/08 patient abdomen symptoms were worsening and portable grinding machine operator gave the patient Docusate Sodium enema, he had very small BM, patient family is present and patient encourage to increase fluids intake and ambulate, I suspect with diabetes most likely he has diabetes gastroparesis, gave Reglan 5mg IV and continued miralax and dulcolax, on 02/10 patient did have little BM hard stool, increased Reglan to 10mg IV and dulcolax supp. still no BM seen by consult GI, started the patient on colonoscopy prep, and will encourage patient to ambulate, will monitor. Subjective Date/time seen: 02/11/25 17:14 Interval history: 74 y/o male presented with c/o RUQ pain, patient is a poor historian, denies any nausea or vomiting, patient did have BM yesterday, to further evaluate patient had CT scan of abdomen which showed large amount of colonic stool particularly at the cecum consistent with constipation. No other acute intra-abdominal/pelvic process. will give patient mirLarge amount of colonic stool particularly at the cecum consistent with constipation. No other acute intra-abdominal/pelvic process. on 02/06 gave patient Miralax and Colace for constipation patient stats he is passing more gas but BM but pain is little better will give Miralax and Colace again today and monitor, also pain is located along right ribs and its tender, x-ray did not show any bony injury. upon arrival patient sodium was 129, most likely due to dehydration, patient is being hydrated, also on 02/08 patient abdomen symptoms were worsening and portable grinding machine operator gave the patient Docusate Sodium enema, he had very small BM, patient family is present and patient encourage to increase fluids intake and ambulate, I suspect with diabetes most likely he has diabetes gastroparesis, gave Reglan 5mg IV and continued miralax and dulcolax, on 02/10 patient did have little BM hard stool, increased Reglan to 10mg IV and dulcolax supp. still no BM seen by consult GI, started the patient on colonoscopy prep, and will encourage patient to ambulate, will monitor. Exam Narrative: Patient is comfortable, NAD HEENT: eyes are clear and none icteric LUNGS:CTA HEART: RR S1S2 ABD: BS+, Soft and tender in RUQ and right lower ribs. Lower extremities: no edema SKIN: nonjaundiced Neuro: grossly intact. Objective Data Vital Signs Vital Signs: Vital Signs - 24 hr 02/10/25 21:03 02/10/25 22:22 02/11/25 06:00 Temperature 36.3 C L 36.1 C L Pulse Rate 58 L 80 Respiratory Rate 16 16 Blood Pressure 129/54 L 145/85 H Pulse Oximetry 98 100 Oxygen Delivery Room Air 02/11/25 14:00 Temperature 36.3 C L Pulse Rate 77 Respiratory Rate 16 Blood Pressure 155/67 H Pulse Oximetry 100 Oxygen Delivery Intake/Output Intake/Output: Intake & Output 02/08/25 02/09/25 02/10/25 02/11/25 23:59 23:59 23:59 23:59 Intake Total 6257.5 6336.3 2810 927 Balance 6257.5 6336.3 2810 927 Meds/Results Medications: Active Medications Generic Name Dose Route Start Last Admin Trade Name Freq PRN Reason Stop Dose Admin Acetaminophen 650 mg 02/06/25 23:53 02/07/25 22:33 Acetaminophen 325 Mg Tablet PO 650 mg Q4H PRN Administration Headache Aspirin 81 mg 02/07/25 09:00 02/11/25 09:19 Aspirin 81 Mg Enteric Tablet PO 03/09/25 08:59 81 mg DAILY KETAN Administration Cyclobenzaprine HCl 5 mg 02/06/25 16:30 02/08/25 01:03 Cyclobenzaprine Hcl 5 Mg Tablet PO 5 mg Q8H PRN Administration Muscle Spasm Dextrose 12.5 gm 02/06/25 13:29 Dextrose 50% 25 Gm/50 Ml Syringe IV PUSH PRN PRN Hypoglycemia Protocol Docusate Sodium 100 mg 02/06/25 14:05 02/10/25 22:22 Docusate Sodium 100 Mg Capsule PO 100 mg Q12H PRN Administration Constipation Glipizide 5 mg 02/08/25 08:00 02/11/25 16:28 Glipizide 5 Mg Tablet PO 5 mg 0800,1630 KETAN Administration Glucagon 1 mg 02/06/25 13:29 Glucagon For Inj 1 Mg Vial IM PRN PRN Hypoglycemia Protocol Glucose 15 gm 02/06/25 13:29 Glucose Oral Gel 15 Gm Of Glucse In 37.5 Gm Tube PO PRN PRN Hypoglycemia Protocol Dextrose 1,000 mls @ 100 mls/hr 02/06/25 13:29 Dextrose 5% 1,000 Ml IVPB PRN PRN Hypoglycemia Protocol Ketorolac Tromethamine 15 mg 02/07/25 00:12 02/08/25 01:03 Ketorolac 15 Mg/Ml Vial (*Bkc) IV PUSH 15 mg Q6H PRN Administration Pain Rated 7-10 Lactulose 20 gm 02/08/25 09:00 02/11/25 09:24 Lactulose 20 Gm/30 Ml Udc PO 20 gm QAM KETAN Administration Non-Formulary ( 1 each 02/07/25 09:00 02/11/25 09:20 Benazepril Hcl 20 Mg PO 03/09/25 08:59 1 each Oral Tablet) DAILY KETAN Administration Pantoprazole Sodium 40 mg 02/07/25 09:00 02/11/25 09:19 Pantoprazole 40 Mg Tablet PO 40 mg Q12HR KETAN Administration Polyethylene Glycol 17 gm 02/08/25 09:00 02/11/25 16:28 Polyethylene Glycol 3350 17 Gm Powd.Pack PO Not Given BID [facility] Polyethylene Glycol 119 gm 02/11/25 08:00 02/11/25 13:37 Polyethylene Glycol 3350 238 Gm Bottle PO 02/12/25 05:01 119 gm 0800,1400,2000,0500 KETAN Administration Simethicone 125 mg 02/10/25 13:00 02/11/25 16:28 Simethicone 125 Mg Chew Tab PO 125 mg QID KETAN Administration Sitagliptin Phosphate 100 mg 02/07/25 08:00 02/11/25 09:19 Sitagliptin Phosphate 100 Mg Tablet PO 100 mg DAILY@0800 KETAN Administration Tamsulosin HCl 0.4 mg 02/06/25 21:00 02/10/25 22:21 Tamsulosin Hcl 0.4 Mg Capsule PO 0.4 mg HS KETAN Administration Verapamil HCl 120 mg 02/06/25 13:51 02/11/25 09:19 Verapamil Hcl Er 120 Mg Tablet PO 03/09/25 13:39 120 mg DAILY@0800 KETAN Administration Radiology Results: ITS Impressions Abdomen/Pelvis CT 02/06/25 09:25 IMPRESSION: 1. Large amount of colonic stool particularly at the cecum consistent with constipation. No other acute intra-abdominal/pelvic process. 2. Small sliding-type hiatal hernia. 2. Bladder diverticulum which may be secondary to chronic outlet obstruction from the enlarged prostate. Chest X-Ray 02/06/25 14:18 IMPRESSION: 1: NO ACUTE CARDIOPULMONARY DISEASE. Abdomen X-Ray 02/10/25 11:45 Impression: 1: Fecal impaction of the colon. Labs Labs: Laboratory Results - last 24 hr 02/10/25 02/11/25 02/11/25 20:27 06:40 08:44 WBC 6.5 RBC 4.26 L Hgb 12.4 L Hct 39.1 L MCV 91.8 MCH 29.1 MCHC 31.7 L RDW 12.7 Plt Count 314 MPV 9.0 Sodium 133 L Potassium 4.9 Chloride 97 L Carbon Dioxide 26 Anion Gap 10 BUN 15 Creatinine 1.04 Estim Creat Clear Calc 60 Estimated GFR > 60 Glucose 174 H POC Capillary Glucose 137 H 141 H Calcium 9.7 Magnesium 2.2 02/11/25 02/11/25 11:19 16:25 WBC RBC Hgb Hct MCV MCH MCHC RDW Plt Count MPV Sodium Potassium Chloride Carbon Dioxide Anion Gap BUN Creatinine Estim Creat Clear Calc Estimated GFR Glucose POC Capillary Glucose 189 H 78 Calcium Magnesium
[2025-02-11 20:00] VITALS: PULSE 70; RESP 16; O2SAT 99
[2025-02-11 20:16] LABS: Glucose Point of Care 58 mg/dl (65-105)
[2025-02-11] MEDS: GLUCOSE ORAL GEL 15 GM OF GLUCSE IN 37.5 GM TUBE PO ×2 (20:20→20:47)
[2025-02-11] MEDS: TAMSULOSIN HCL 0.4 MG CAPSULE PO (20:25)
[2025-02-11 21:20] LABS: Glucose Point of Care 114 mg/dl (65-105)
[2025-02-11 21:20] LABS: Glucose Point of Care 62 mg/dl (65-105)
[2025-02-11 21:46] VITALS: BP 146/70; PULSE 70; RESP 16; TEMP 36.1; O2SAT 99
[2025-02-11] MEDS: DEXTROSE 5%/LACTATED RINGERS 1,000 ML 75 ML XX (22:12)
[2025-02-11 23:56] LABS: Glucose Point of Care 191 mg/dl (65-105)
[2025-02-12] MEDS: polyethylene glycoL 3350 238 GM BOTTLE 119 GM PO (05:07)
[2025-02-12 05:24] LABS: Glucose Point of Care 185 mg/dl (65-105)
[2025-02-12 06:00] VITALS: BP 157/88; PULSE 78; RESP 16; TEMP 36.1; O2SAT 99
[2025-02-12 07:27] LABS: Anion Gap 6 mmol/L (4-12); Blood Urea Nitrogen 10 mg/dL (9-20); Calcium 9.8 mg/dL (8.4-10.2); Carbon Dioxide 30 mmol/L (22-30); Chloride 95 mmol/L (98-107); Estimated CRCL calculation 72 ml/min; Estimated Glomerular Filt Rate > 60; Glucose 175 mg/dL (65-110); Hematocrit 37.1 % (42.0-52.0); Hemoglobin 12.2 g/dL (14.0-18.0); Magnesium 2.2 mg/dL (1.6-2.3); Mean Corpuscular HGB Conc 32.9 g/dl (32-36); Mean Corpuscular Hemoglobin 30.1 pg (26-34); Mean Corpuscular Volume 91.6 fl (80-100); Platelet Count Result 347 k/mm3 (150-375); Potassium 4.3 mmol/L (3.4-5.0); Red Blood Count 4.05 M/mm3 (4.6-6.20); Red Cell Distribution Width 12.6 % (11.5-14.5); Sodium 131 mmol/L (137-145); White Blood Count 4.8 K/mm3 (4.5-10.0)
[2025-02-12 08:26] LABS: Glucose Point of Care 165 mg/dl (65-105)
[2025-02-12] MEDS: SITagliptin PHOSPHATE 100 MG TABLET PO (11:01)
[2025-02-12] MEDS: PANTOPRAZOLE 40 MG TABLET PO ×2 (11:01→22:07)
[2025-02-12] MEDS: VERAPAMIL HCL ER 120 MG TABLET PO (11:01)
[2025-02-12] MEDS: SIMETHICONE 125 MG CHEW TAB PO ×4 (11:01→22:07)
[2025-02-12] MEDS: polyethylene glycoL 3350 17 GM POWD.PACK PO ×2 (11:01→16:53)
[2025-02-12] MEDS: ASPIRIN 81 MG ENTERIC TABLET PO (11:01)
[2025-02-12] MEDS: LACTULOSE 20 GM/30 ML UDC PO (11:01)
[2025-02-12] MEDS: BENAZEPRIL HCL 20 MG 1 EACH PO (11:02)
[2025-02-12] MEDS: glipiZIDE 5 MG TABLET PO ×2 (11:08→16:52)
[2025-02-12 12:10] LABS: Glucose Point of Care 153 mg/dl (65-105)
[2025-02-12 14:00] VITALS: BP 149/61; PULSE 76; RESP 18; TEMP 36.4; O2SAT 97
--- NOTE | 2025-02-12 14:43 | P.PNIM_ITS ---
Progress Note: A&P Assessment and Plan (1) Acute hyponatremia: Code(s): E87.1 - Hypo-osmolality and hyponatremia Status: Acute (2) Abdominal pain, acute, right upper quadrant: Code(s): R10.11 - Right upper quadrant pain Status: Acute (3) Constipation: Qualifiers: Constipation type: unspecified constipation type Qualified Code(s): K59.00 - Constipation, unspecified Code(s): K59.00 - Constipation, unspecified Status: Acute (4) Debility, unspecified: Code(s): R53.81 - Other malaise Status: Acute Plan 74 y/o male presented with c/o RUQ pain, patient is a poor historian, denies any nausea or vomiting, patient did have BM yesterday, to further evaluate patient had CT scan of abdomen which showed large amount of colonic stool particularly at the cecum consistent with constipation. No other acute intra-abdominal/pelvic process. will give patient mirLarge amount of colonic stool particularly at the cecum consistent with constipation. No other acute intra-abdominal/pelvic process. on 02/06 gave patient Miralax and Colace for constipation patient stats he is passing more gas but BM but pain is little better will give Miralax and Colace again today and monitor, also pain is located along right ribs and its tender, x-ray did not show any bony injury. upon arrival patient sodium was 129, most likely due to dehydration, patient is being hydrated, also on 02/08 patient abdomen symptoms were worsening and online project manager gave the patient Docusate Sodium enema, he had very small BM, patient family is present and patient encourage to increase fluids intake and ambulate, I suspect with diabetes most likely he has diabetes gastroparesis, gave Reglan 5mg IV and continued miralax and dulcolax, on 02/10 patient did have little BM hard stool, increased Reglan to 10mg IV and dulcolax supp. still no BM seen by consult GI, started the patient on colonoscopy prep, patient taken the prep without significant BM,and will encourage patient to ambulate, will monitor. Subjective Date/time seen: 02/12/25 14:43 Interval history: 74 y/o male presented with c/o RUQ pain, patient is a poor historian, denies any nausea or vomiting, patient did have BM yesterday, to further evaluate patient had CT scan of abdomen which showed large amount of colonic stool particularly at the cecum consistent with constipation. No other acute intra-abdominal/pelvic process. will give patient mirLarge amount of colonic stool particularly at the cecum consistent with constipation. No other acute intra-abdominal/pelvic process. on 02/06 gave patient Miralax and Colace for constipation patient stats he is passing more gas but BM but pain is little better will give Miralax and Colace again today and monitor, also pain is located along right ribs and its tender, x-ray did not show any bony injury. upon arrival patient sodium was 129, most likely due to dehydration, patient is being hydrated, also on 02/08 patient abdomen symptoms were worsening and online project manager gave the patient Docusate Sodium enema, he had very small BM, patient family is present and patient encourage to increase fluids intake and ambulate, I suspect with diabetes most likely he has diabetes gastroparesis, gave Reglan 5mg IV and continued miralax and dulcolax, on 02/10 patient did have little BM hard stool, increased Reglan to 10mg IV and dulcolax supp. still no BM seen by consult GI, started the patient on colonoscopy prep, patient taken the prep without significant BM,and will encourage patient to ambulate, will monitor. Exam Narrative: Patient is comfortable, NAD HEENT: eyes are clear and none icteric LUNGS:CTA HEART: RR S1S2 ABD: BS+, Soft and tender in RUQ and right lower ribs. Lower extremities: no edema SKIN: nonjaundiced Neuro: grossly intact. Objective Data Vital Signs Vital Signs: Vital Signs - 24 hr 02/11/25 20:00 02/11/25 21:46 02/12/25 06:00 Temperature 36.1 C L 36.1 C L Pulse Rate 70 70 78 Respiratory Rate 16 16 16 Blood Pressure 146/70 H 157/88 H Pulse Oximetry 99 99 99 Oxygen Delivery Room Air Fraction of Inspired Oxygen 02/12/25 08:00 Temperature Pulse Rate Respiratory Rate Blood Pressure Pulse Oximetry Oxygen Delivery Room Air Fraction of Inspired Oxygen Intake/Output Intake/Output: Intake & Output 02/09/25 02/10/25 02/11/25 02/12/25 23:59 23:59 23:59 23:59 Intake Total 6336.3 3810 2007 200 Balance 6336.3 3810 2006 200 Meds/Results Medications: Active Medications Generic Name Dose Route Start Last Admin Trade Name Freq PRN Reason Stop Dose Admin Acetaminophen 650 mg 02/06/25 23:53 02/07/25 22:33 Acetaminophen 325 Mg Tablet PO 650 mg Q4H PRN Administration Headache Aspirin 81 mg 02/07/25 09:00 02/12/25 11:01 Aspirin 81 Mg Enteric Tablet PO 03/09/25 08:59 81 mg DAILY KETAN Administration Cyclobenzaprine HCl 5 mg 02/06/25 16:30 02/08/25 01:03 Cyclobenzaprine Hcl 5 Mg Tablet PO 5 mg Q8H PRN Administration Muscle Spasm Dextrose 12.5 gm 02/06/25 13:29 Dextrose 50% 25 Gm/50 Ml Syringe IV PUSH PRN PRN Hypoglycemia Protocol Docusate Sodium 100 mg 02/06/25 14:05 02/10/25 22:22 Docusate Sodium 100 Mg Capsule PO 100 mg Q12H PRN Administration Constipation Glipizide 5 mg 02/08/25 08:00 02/12/25 11:08 Glipizide 5 Mg Tablet PO 5 mg 0800,1630 KETAN Administration Glucagon 1 mg 02/06/25 13:29 Glucagon For Inj 1 Mg Vial IM PRN PRN Hypoglycemia Protocol Glucose 15 gm 02/06/25 13:29 02/11/25 20:47 Glucose Oral Gel 15 Gm Of Glucse In 37.5 Gm Tube PO 15 gm PRN PRN Administration Hypoglycemia Protocol Dextrose 1,000 mls @ 100 mls/hr 02/06/25 13:29 Dextrose 5% 1,000 Ml IVPB PRN PRN Hypoglycemia Protocol Lactulose 20 gm 02/08/25 09:00 02/12/25 11:01 Lactulose 20 Gm/30 Ml Udc PO 20 gm QAM KETAN Administration Non-Formulary ( 1 each 02/07/25 09:00 02/12/25 11:02 Benazepril Hcl 20 Mg PO 03/09/25 08:59 1 each Oral Tablet) DAILY KETAN Administration Pantoprazole Sodium 40 mg 02/07/25 09:00 02/12/25 11:01 Pantoprazole 40 Mg Tablet PO 40 mg Q12HR KETAN Administration Polyethylene Glycol 17 gm 02/08/25 09:00 02/12/25 11:01 Polyethylene Glycol 3350 17 Gm Powd.Pack PO 17 gm BID KETAN Administration Simethicone 125 mg 02/10/25 13:00 02/12/25 11:01 Simethicone 125 Mg Chew Tab PO 125 mg QID KETAN Administration Sitagliptin Phosphate 100 mg 02/07/25 08:00 02/12/25 11:01 Sitagliptin Phosphate 100 Mg Tablet PO 100 mg DAILY@0800 KETAN Administration Tamsulosin HCl 0.4 mg 02/06/25 21:00 02/11/25 20:25 Tamsulosin Hcl 0.4 Mg Capsule PO 0.4 mg HS KETAN Administration Verapamil HCl 120 mg 02/06/25 13:51 02/12/25 11:01 Verapamil Hcl Er 120 Mg Tablet PO 03/09/25 13:39 120 mg DAILY@0800 KETAN Administration Radiology Results: ITS Impressions Abdomen/Pelvis CT 02/06/25 09:25 IMPRESSION: 1. Large amount of colonic stool particularly at the cecum consistent with constipation. No other acute intra-abdominal/pelvic process. 2. Small sliding-type hiatal hernia. 2. Bladder diverticulum which may be secondary to chronic outlet obstruction from the enlarged prostate. Chest X-Ray 02/06/25 14:18 IMPRESSION: 1: NO ACUTE CARDIOPULMONARY DISEASE. Abdomen X-Ray 02/12/25 11:36 IMPRESSION: Nonspecific, nonobstructive bowel gas pattern with mural thickening and fecal stasis in the colon. Labs Labs: Laboratory Results - last 24 hr 02/11/25 02/11/25 02/11/25 16:25 20:12 20:43 WBC RBC Hgb Hct MCV MCH MCHC RDW Plt Count MPV Sodium Potassium Chloride Carbon Dioxide Anion Gap BUN Creatinine Estim Creat Clear Calc Estimated GFR Glucose POC Capillary Glucose 78 58 L* 62 L Calcium Magnesium 02/11/25 02/11/25 02/12/25 21:18 23:53 05:19 WBC RBC Hgb Hct MCV MCH MCHC RDW Plt Count MPV Sodium Potassium Chloride Carbon Dioxide Anion Gap BUN Creatinine Estim Creat Clear Calc Estimated GFR Glucose POC Capillary Glucose 114 H 191 H 185 H Calcium Magnesium 02/12/25 02/12/25 02/12/25 07:05 08:14 11:58 WBC 4.8 RBC 4.05 L Hgb 12.2 L Hct 37.1 L MCV 91.6 MCH 30.1 MCHC 32.9 RDW 12.6 Plt Count 347 MPV 9.0 Sodium 131 L Potassium 4.3 Chloride 95 L Carbon Dioxide 30 Anion Gap 6 BUN 10 D Creatinine 0.85 Estim Creat Clear Calc 72 Estimated GFR > 60 Glucose 175 H POC Capillary Glucose 165 H 153 H Calcium 9.8 Magnesium 2.2
[2025-02-12 16:53] VITALS: BP 150/65; PULSE 80; RESP 20; TEMP 36.4; O2SAT 100
[2025-02-12 17:00] LABS: Glucose Point of Care 90 mg/dl (65-105)
[2025-02-12 20:25] VITALS: BP 172/71; PULSE 79; RESP 18; TEMP 36.3; O2SAT 100
[2025-02-12 21:23] LABS: Glucose Point of Care 213 mg/dl (65-105)
[2025-02-12 22:00] VITALS: PULSE 70; RESP 14; O2SAT 98
[2025-02-12] MEDS: TAMSULOSIN HCL 0.4 MG CAPSULE PO (22:06)
[2025-02-13] VITALS (9 sets, daily range): BP systolic 137–189; BP diastolic 53–81; PULSE 68–82; RESP 16–20; TEMP 35.9–36.6; O2SAT 97–100
[2025-02-13 05:53] LABS: Glucose Point of Care 154 mg/dl (65-105)
[2025-02-13 06:19] LABS: Hematocrit 35.8 % (42.0-52.0); Hemoglobin 11.6 g/dL (14.0-18.0); Mean Corpuscular HGB Conc 32.4 g/dl (32-36); Mean Corpuscular Hemoglobin 29.4 pg (26-34); Mean Corpuscular Volume 90.9 fl (80-100); Mean Platelet Volume 8.9 fl (7.4-10.4); Platelet Count Result 312 k/mm3 (150-375); Red Blood Count 3.94 M/mm3 (4.6-6.20); Red Cell Distribution Width 12.3 % (11.5-14.5)
[2025-02-13 06:29] LABS: Anion Gap 9 mmol/L (4-12); Blood Urea Nitrogen 8 mg/dL (9-20); Calcium 9.6 mg/dL (8.4-10.2); Carbon Dioxide 24 mmol/L (22-30); Chloride 98 mmol/L (98-107); Estimated CRCL calculation 72 ml/min; Estimated Glomerular Filt Rate > 60; Glucose 145 mg/dL (65-110); Magnesium 2.1 mg/dL (1.6-2.3); Potassium 4.2 mmol/L (3.4-5.0); Sodium 131 mmol/L (137-145)
[2025-02-13] MEDS: LACTATED RINGERS 1,000 ML 150 ML IV CONT ×2 (06:57→07:30)
--- NOTE | 2025-02-13 07:00 | P.PNAN_ITS ---
Anes - Initial Pre Proc Eval Procedure: Operation Date: 02/13/25 07:30 Proposed Procedures p Flexible Sigmoidoscopy - Fabian Cordova MD Date/Time: 02/13/25 07:00 Surgeon: Bruno Oviedo MD Pre Op Diagnosis: Hyponatremia Patient Data Age: 74 Gender: M Height: 1.83 m Weight: 77.9 kg Last Vital Signs Temp 97.3 F L 02/13/25 06:55 Pulse 78 02/13/25 06:55 Resp 18 02/13/25 06:55 BP 179/65 H 02/13/25 06:55 Pulse Ox 99 02/13/25 06:55 O2 Del Method Room Air 02/13/25 06:55 FiO2 21 02/12/25 22:00 Allergies Allergy/AdvReac Type Severity Reaction Status Date / Time No Known Allergies Allergy Verified 02/06/25 07:40 Home Medications ?Medication ?Instructions ?Recorded ?Confirmed ?Type aspirin 81 mg tablet 81 mg PO DAILY 02/06/25 02/06/25 History benazepril 20 mg tablet 20 mg PO DAILY 02/06/25 02/06/25 History glipizide 5 mg tablet 5 mg PO BID 02/06/25 02/06/25 History metformin 500 mg tablet 1,000 mg PO BID 02/06/25 02/06/25 History omeprazole 20 mg capsule,delayed 20 mg PO .night PRN as needed 02/06/25 02/06/25 History release sitagliptin phosphate 100 mg 100 mg PO DAILY@0800 02/06/25 02/06/25 History tablet (Januvia) tamsulosin 0.4 mg capsule 0.4 mg PO .night 02/06/25 02/06/25 History verapamil 120 mg tablet,extended 120 mg PO DAILY@0800 02/06/25 02/06/25 History release Laboratory Tests 02/12/25 02/12/25 02/12/25 07:05 08:14 11:58 WBC 4.8 K/mm3 (4.5-10.0) RBC 4.05 L M/mm3 (4.6-6.20) Hgb 12.2 L g/dL (14.0-18.0) Hct 37.1 L % (42.0-52.0) MCV 91.6 fl (80-100) MCH 30.1 pg (26-34) MCHC 32.9 g/dl (32-36) RDW 12.6 % (11.5-14.5) Plt Count 347 k/mm3 (150-375) MPV 9.0 fl (7.4-10.4) Sodium 131 L mmol/L (137-145) Potassium 4.3 mmol/L (3.4-5.0) Chloride 95 L mmol/L (98-107) Carbon Dioxide 30 mmol/L (22-30) Anion Gap 6 mmol/L (4-12) BUN 10 D mg/dL (9-20) Creatinine 0.85 mg/dL (0.7-1.3) Estim Creat Clear Calc 72 ml/min Estimated GFR > 60 (59 - ) Glucose 175 H mg/dL (65-110) POC Capillary Glucose 165 H mg/dl 153 H mg/dl (65-105) (65-105) Calcium 9.8 mg/dL (8.4-10.2) Magnesium 2.2 mg/dL (1.6-2.3) 02/12/25 02/12/25 02/13/25 16:57 20:26 05:46 WBC RBC Hgb Hct MCV MCH MCHC RDW Plt Count MPV Sodium Potassium Chloride Carbon Dioxide Anion Gap BUN Creatinine Estim Creat Clear Calc Estimated GFR Glucose POC Capillary Glucose 90 mg/dl 213 H mg/dl 154 H mg/dl (65-105) (65-105) (65-105) Calcium Magnesium 02/13/25 05:57 WBC 10.0 K/mm3 (4.5-10.0) RBC 3.94 L M/mm3 (4.6-6.20) Hgb 11.6 L g/dL (14.0-18.0) Hct 35.8 L % (42.0-52.0) MCV 90.9 fl (80-100) MCH 29.4 pg (26-34) MCHC 32.4 g/dl (32-36) RDW 12.3 % (11.5-14.5) Plt Count 312 k/mm3 (150-375) MPV 8.9 fl (7.4-10.4) Sodium 131 L mmol/L (137-145) Potassium 4.2 mmol/L (3.4-5.0) Chloride 98 mmol/L (98-107) Carbon Dioxide 24 mmol/L (22-30) Anion Gap 9 mmol/L (4-12) BUN 8 L mg/dL (9-20) Creatinine 0.85 mg/dL (0.7-1.3) Estim Creat Clear Calc 72 ml/min Estimated GFR > 60 (59 - ) Glucose 145 H mg/dL (65-110) POC Capillary Glucose Calcium 9.6 mg/dL (8.4-10.2) Magnesium 2.1 mg/dL (1.6-2.3) Patient hx anesthesia problems: none Family hx anesthesia problems: none Results Review: All pre-operative results and documents have been reviewed as part of the pre- operative evaluation. [facility] Family History Family History Sibling Patient's sister is in good health Social History Social History Smoking status: Never smoker Alcohol intake: former Substance use: never Substance use type: does not use Do You Feel Safe in your Home?: Yes Lack of Transportation: No Lack of Food: Never True Current Housing: I Have Housing Concerned About Future Housing: No Difficulty Paying Gas/Electric Bills: No Difficulty Paying for Meds: No Currently Unemployed: No Education: Bachelor's Degree Difficulty w/ Childcare or Family Care: No Spiritual care concerns: No Anes - Eval Final PreProcedure Day of Procedure 02/13/25 07:00 Patient weight: normal Lungs: normal air movement Airway: Mallampati scale Neurological: alert and oriented Last oral intake: >/= 8 hours ASA classification: III Emergent: no Anesthetic plan: proceed Anesthesia type and monitoring: general GIVS and standard monitoring Results Review: All pre-operative results and documents have been reviewed as part of the pre- operative evaluation. HTN, DM, borderline hyperlipidemia. Pt overall active, mows grass, no cp or sob. Now w RUQ pain. Informed Consent: The patient's anesthetic plan and its attendant risks and benefits were discussed with the patient/family/POA. Questions were solicited and answers provided to the satisfaction of the patient/family/POA.
--- NOTE | 2025-02-13 07:43 | P.PNIM_ITS ---
Progress Note: A&P Assessment and Plan (1) Constipation: Qualifiers: Constipation type: unspecified constipation type Qualified Code(s): K59.00 - Constipation, unspecified Code(s): K59.00 - Constipation, unspecified Status: Acute Assessment and Plan: * CT abdomen/Pelvis: large amount of colonic stool particularly at the cecum consistent with constipation. No other acute intra-abdominal/pelvic process. * 02/06 gave patient Miralax and Colace for constipation patient stats he is passing more gas but BM but pain is little better * 02/08 patient abdomen symptoms were worsening and recreation manager gave the patient Docusate Sodium enema, he had very small BM * 02/10 patient did have little BM hard stool * increased Reglan to 10mg IV and dulcolax supp * 02/12 colonoscopy prep, patient taken the prep without significant BM * 02/13 Sigmoidoscopy * GI to continue following * Likely d/c this (2) Abdominal pain, acute, right upper quadrant: Code(s): R10.11 - Right upper quadrant pain Status: Acute Assessment and Plan: * Likely secondary to constipation * see above (3) Acute hyponatremia: Code(s): E87.1 - Hypo-osmolality and hyponatremia Status: Acute Assessment and Plan: * Upon admission, Na 129. Likely secondary to dehydration * NS IVF * 02/13: 131 * Continue to monitor, encourage hydration Subjective Date/time seen: 02/13/25 07:43 Interval history: 74 y/o male presented with c/o RUQ pain, patient is a poor historian, denies any nausea or vomiting, patient did have BM yesterday, to further evaluate patient had CT scan of abdomen which showed large amount of colonic stool particularly at the cecum consistent with constipation. No other acute intra-abdominal/pelvic process. 02/13/2025 Patient sitting in bed at time of exam. Denies any CP, SOB, or n/v. Still has some abdominal bloating but patient states decreased significantly since yesterday. Also denies any abdominal pain. Sigmoidoscopy today, still no major bowel movement, however patient does endorse a small amount of diarrhea. Appreciate GI further recommendations Review of Systems Review of Systems: All systems reviewed & are unremarkable except as noted in HPI and below Exam Narrative: Patient is comfortable, NAD HEENT: eyes are clear and none icteric LUNGS:CTA HEART: RR S1S2 ABD: BS+, Soft and tender in RUQ and right lower ribs. Lower extremities: no edema SKIN: nonjaundiced Neuro: grossly intact. Objective Data Vital Signs Vital Signs: Vital Signs - 24 hr 02/12/25 08:00 02/12/25 14:00 02/12/25 16:53 Temperature 97.6 F 97.6 F Pulse Rate 76 80 Respiratory Rate 18 20 Blood Pressure 149/61 H 150/65 H Pulse Oximetry 97 100 Oxygen Delivery Room Air Fraction of Inspired Oxygen 02/12/25 20:00 02/12/25 20:25 02/12/25 22:00 Temperature 97.3 F L Pulse Rate 79 70 Respiratory Rate 18 14 Blood Pressure 172/71 H Pulse Oximetry 100 98 Oxygen Delivery Room Air Room Air Fraction of Inspired Oxygen 21 02/13/25 05:50 02/13/25 06:55 Temperature 97.8 F 97.3 F L Pulse Rate 81 78 Respiratory Rate 16 18 Blood Pressure 189/79 H 179/65 H Pulse Oximetry 100 99 Oxygen Delivery Room Air Fraction of Inspired Oxygen Intake/Output Intake/Output: Intake & Output 02/10/25 02/11/25 02/12/25 02/13/25 23:59 23:59 23:59 23:59 Intake Total 3810 2006 1660 350 Balance 3810 2006 1660 350 Meds/Results Medications: Active Medications Generic Name Dose Route Start Last Admin Trade Name Freq PRN Reason Stop Dose Admin Acetaminophen 650 mg 02/06/25 23:53 02/07/25 22:33 Acetaminophen 325 Mg Tablet PO 650 mg Q4H PRN Administration Headache Aspirin 81 mg 02/07/25 09:00 02/12/25 11:01 Aspirin 81 Mg Enteric Tablet PO 03/09/25 08:59 81 mg DAILY KETAN Administration Cyclobenzaprine HCl 5 mg 02/06/25 16:30 02/08/25 01:03 Cyclobenzaprine Hcl 5 Mg Tablet PO 5 mg Q8H PRN Administration Muscle Spasm Dextrose 12.5 gm 02/06/25 13:29 Dextrose 50% 25 Gm/50 Ml Syringe IV PUSH PRN PRN Hypoglycemia Protocol Docusate Sodium 100 mg 02/06/25 14:05 02/10/25 22:22 Docusate Sodium 100 Mg Capsule PO 100 mg Q12H PRN Administration Constipation Glipizide 5 mg 02/08/25 08:00 02/12/25 16:52 Glipizide 5 Mg Tablet PO 5 mg 0800,1630 KETAN Administration Glucagon 1 mg 02/06/25 13:29 Glucagon For Inj 1 Mg Vial IM PRN PRN Hypoglycemia Protocol Glucose 15 gm 02/06/25 13:29 02/11/25 20:47 Glucose Oral Gel 15 Gm Of Glucse In 37.5 Gm Tube PO 15 gm PRN PRN Administration Hypoglycemia Protocol Dextrose 1,000 mls @ 100 mls/hr 02/06/25 13:29 Dextrose 5% 1,000 Ml IVPB PRN PRN Hypoglycemia Protocol Lactated Ringer's 1,000 mls @ 150 mls/hr 02/12/25 16:55 Lr - Lactated Ringers Iv IV CONT .Q6H40M KETAN Lactated Ringer's 1,000 mls @ 150 mls/hr 02/13/25 06:55 02/13/25 06:57 Lr - Lactated Ringers Iv IV CONT 150 mls/hr .Q6H40M KETAN Administration Lactulose 20 gm 02/08/25 09:00 02/12/25 11:01 Lactulose 20 Gm/30 Ml Udc PO 20 gm QAM KETAN Administration Non-Formulary ( 1 each 02/07/25 09:00 02/12/25 11:02 Benazepril Hcl 20 Mg PO 03/09/25 08:59 1 each Oral Tablet) DAILY KETAN Administration Pantoprazole Sodium 40 mg 02/07/25 09:00 02/12/25 22:07 Pantoprazole 40 Mg Tablet PO 40 mg Q12HR KETAN Administration Polyethylene Glycol 17 gm 02/08/25 09:00 02/12/25 16:53 Polyethylene Glycol 3350 17 Gm Powd.Pack PO 17 gm BID KETAN Administration Simethicone 125 mg 02/10/25 13:00 02/12/25 22:07 Simethicone 125 Mg Chew Tab PO 125 mg QID KETAN Administration Sitagliptin Phosphate 100 mg 02/07/25 08:00 02/12/25 11:01 Sitagliptin Phosphate 100 Mg Tablet PO 100 mg DAILY@0800 KETAN Administration Tamsulosin HCl 0.4 mg 02/06/25 21:00 02/12/25 22:06 Tamsulosin Hcl 0.4 Mg Capsule PO 0.4 mg HS KETAN Administration Verapamil HCl 120 mg 02/06/25 13:51 02/12/25 11:01 Verapamil Hcl Er 120 Mg Tablet PO 03/09/25 13:39 120 mg DAILY@0800 KETAN Administration Radiology Results: ITS Impressions Abdomen/Pelvis CT 02/06/25 09:25 IMPRESSION: 1. Large amount of colonic stool particularly at the cecum consistent with constipation. No other acute intra-abdominal/pelvic process. 2. Small sliding-type hiatal hernia. 2. Bladder diverticulum which may be secondary to chronic outlet obstruction from the enlarged prostate. Chest X-Ray 02/06/25 14:18 IMPRESSION: 1: NO ACUTE CARDIOPULMONARY DISEASE. Abdomen X-Ray 02/12/25 11:36 IMPRESSION: Nonspecific, nonobstructive bowel gas pattern with mural thickening and fecal stasis in the colon. Labs Labs: Laboratory Results - last 24 hr 02/12/25 02/12/25 02/12/25 08:14 11:58 16:57 WBC RBC Hgb Hct MCV MCH MCHC RDW Plt Count MPV Sodium Potassium Chloride Carbon Dioxide Anion Gap BUN Creatinine Estim Creat Clear Calc Estimated GFR Glucose POC Capillary Glucose 165 H 153 H 90 Calcium Magnesium 02/12/25 02/13/25 02/13/25 20:26 05:46 05:57 WBC 10.0 RBC 3.94 L Hgb 11.6 L Hct 35.8 L MCV 90.9 MCH 29.4 MCHC 32.4 RDW 12.3 Plt Count 312 MPV 8.9 Sodium 131 L Potassium 4.2 Chloride 98 Carbon Dioxide 24 Anion Gap 9 BUN 8 L Creatinine 0.85 Estim Creat Clear Calc 72 Estimated GFR > 60 Glucose 145 H POC Capillary Glucose 213 H 154 H Calcium 9.6 Magnesium 2.1 Quality VTE Prophylaxis VTE prophylaxis: mechanical ordered
[2025-02-13 08:34] LABS: Glucose Point of Care 133 mg/dl (65-105)
[2025-02-13 11:49] LABS: Glucose Point of Care 136 mg/dl (65-105)
--- NOTE | 2025-02-13 12:00 | PCNWS ---
Weekly nutritional screen. Patient is tolerating current diabetic diet with adequate intake 100% most all meals. No weight loss reported. No nutritional recommendations at this time.
[2025-02-13] MEDS: VERAPAMIL HCL ER 120 MG TABLET PO (12:02)
[2025-02-13] MEDS: polyethylene glycoL 3350 17 GM POWD.PACK PO ×2 (12:02→17:22)
[2025-02-13] MEDS: SIMETHICONE 125 MG CHEW TAB PO ×3 (12:02→22:07)
[2025-02-13] MEDS: ASPIRIN 81 MG ENTERIC TABLET PO (12:02)
[2025-02-13] MEDS: SITagliptin PHOSPHATE 100 MG TABLET PO (12:02)
[2025-02-13] MEDS: PANTOPRAZOLE 40 MG TABLET PO ×2 (12:02→22:07)
[2025-02-13] MEDS: BENAZEPRIL HCL 20 MG 1 EACH PO (12:03)
[2025-02-13] MEDS: LACTULOSE 20 GM/30 ML UDC PO (12:03)
[2025-02-13] MEDS: glipiZIDE 5 MG TABLET PO (12:12)
[2025-02-13 17:03] LABS: Glucose Point of Care 131 mg/dl (65-105)
[2025-02-13 20:27] LABS: Glucose Point of Care 175 mg/dl (65-105)
[2025-02-13] MEDS: TAMSULOSIN HCL 0.4 MG CAPSULE PO (22:07)
[2025-02-14 06:00] VITALS: BP 135/61; PULSE 75; RESP 18; TEMP 36; O2SAT 99
[2025-02-14] MEDS: LINACLOTIDE 145 MCG CAPSULE PO (06:19)
[2025-02-14 07:33] LABS: Glucose Point of Care 154 mg/dl (65-105)
[2025-02-14] MEDS: ASPIRIN 81 MG ENTERIC TABLET PO (09:28)
[2025-02-14] MEDS: SIMETHICONE 125 MG CHEW TAB PO ×2 (09:28→13:33)
[2025-02-14] MEDS: VERAPAMIL HCL ER 120 MG TABLET PO (09:29)
[2025-02-14] MEDS: SITagliptin PHOSPHATE 100 MG TABLET PO (09:29)
[2025-02-14] MEDS: PANTOPRAZOLE 40 MG TABLET PO (09:29)
[2025-02-14] MEDS: polyethylene glycoL 3350 17 GM POWD.PACK PO (09:29)
[2025-02-14] MEDS: glipiZIDE 5 MG TABLET PO (09:29)
[2025-02-14] MEDS: LACTULOSE 20 GM/30 ML UDC PO (09:30)
[2025-02-14] MEDS: BENAZEPRIL HCL 20 MG 1 EACH PO (09:30)
[2025-02-14 11:42] LABS: Glucose Point of Care 84 mg/dl (65-105)
--- NOTE | 2025-02-14 12:00 | WPDGIPROGNO ---
Progress Note: A&P Assessment and Plan (1) Constipation: Qualifiers: Constipation type: unspecified constipation type Qualified Code(s): K59.00 - Constipation, unspecified Code(s): K59.00 - Constipation, unspecified Status: Acute Assessment and Plan: completed sigmoidoscopy and barium enema, no lesions he can go home with linzess and more fiber in diet follow-up in office then we can arrange full colonoscopy at later time (2) Abdominal pain, acute, right upper quadrant: Code(s): R10.11 - Right upper quadrant pain Status: Acute Assessment and Plan: resolved (3) Hyponatremia: Code(s): E87.1 - Hypo-osmolality and hyponatremia Status: Acute Subjective Date/time seen: 02/14/25 12:00 Interval history: barium enema tortuous colon without worrisome findings, sigmoidoscopy no obvious lesions with retained stool he is comfortable and had BM family member at bedside Review of Systems Review of Systems: All systems reviewed & are unremarkable except as noted in HPI and below Exam Const: General: comfortable and no acute distress HENMT: Face/Nose/Sinus: Normal nares present Eyes: General: appearance normal, both eyes and all related structures Neck: Neck: supple Resp: Auscultation: clear to auscultation bilaterally Cardio: Rate: regular rate Rhythm: regular rhythm GI: Inspection: non-distended GI Palp: Yes Soft to palpation and No Guarding due to palpation present (GI) Auscultation: normal bowel sounds Skin: General skin exam: normal color Neuro: Speech: normal speech Extrem: General: normal to inspection Psych: Mental Status: mental status grossly normal Objective Data Vital Signs Vital Signs: Vital Signs - 24 hr 02/13/25 14:00 02/13/25 20:00 02/13/25 22:00 Temperature 97.5 F L 96.6 F L Pulse Rate 75 80 80 Respiratory Rate 18 18 18 Blood Pressure 144/61 H 137/56 L Pulse Oximetry 97 100 100 Oxygen Delivery Room Air Fraction of Inspired Oxygen 21 02/14/25 06:00 02/14/25 09:30 Temperature 96.8 F L Pulse Rate 75 Respiratory Rate 18 Blood Pressure 135/61 Pulse Oximetry 99 Oxygen Delivery Room Air Fraction of Inspired Oxygen Intake/Output Intake/Output: Intake & Output 02/11/25 02/12/25 02/13/25 02/14/25 23:59 23:59 23:59 23:59 Intake Total 2007 1660 1440 480 Balance 2007 1660 1440 480 Meds/Results Medications: Active Medications Generic Name Dose Route Start Last Admin Trade Name Freq PRN Reason Stop Dose Admin Acetaminophen 650 mg 02/06/25 23:53 02/07/25 22:33 Acetaminophen 325 Mg Tablet PO 650 mg Q4H PRN Administration Headache Aspirin 81 mg 02/07/25 09:00 02/14/25 09:28 Aspirin 81 Mg Enteric Tablet PO 03/09/25 08:59 81 mg DAILY KETAN Administration Cyclobenzaprine HCl 5 mg 02/06/25 16:30 02/08/25 01:03 Cyclobenzaprine Hcl 5 Mg Tablet PO 5 mg Q8H PRN Administration Muscle Spasm Dextrose 12.5 gm 02/06/25 13:29 Dextrose 50% 25 Gm/50 Ml Syringe IV PUSH PRN PRN Hypoglycemia Protocol Docusate Sodium 100 mg 02/06/25 14:05 02/10/25 22:22 Docusate Sodium 100 Mg Capsule PO 100 mg Q12H PRN Administration Constipation Glipizide 5 mg 02/08/25 08:00 02/14/25 09:29 Glipizide 5 Mg Tablet PO 5 mg 0800,1630 KETAN Administration Glucagon 1 mg 02/06/25 13:29 Glucagon For Inj 1 Mg Vial IM PRN PRN Hypoglycemia Protocol Glucose 15 gm 02/06/25 13:29 02/11/25 20:47 Glucose Oral Gel 15 Gm Of Glucse In 37.5 Gm Tube PO 15 gm PRN PRN Administration Hypoglycemia Protocol Dextrose 1,000 mls @ 100 mls/hr 02/06/25 13:29 Dextrose 5% 1,000 Ml IVPB PRN PRN Hypoglycemia Protocol Lactulose 20 gm 02/08/25 09:00 02/14/25 09:30 Lactulose 20 Gm/30 Ml Udc PO 20 gm QAM KETAN Administration Linaclotide 145 mcg 02/14/25 06:30 02/14/25 06:19 Linaclotide 145 Mcg Capsule PO 145 mcg DAILY@0630 KETAN Administration Non-Formulary ( 1 each 02/07/25 09:00 02/14/25 09:30 Benazepril Hcl 20 Mg PO 03/09/25 08:59 1 each Oral Tablet) DAILY KETAN Administration Pantoprazole Sodium 40 mg 02/07/25 09:00 02/14/25 09:29 Pantoprazole 40 Mg Tablet PO 40 mg Q12HR KETAN Administration Polyethylene Glycol 17 gm 02/08/25 09:00 02/14/25 09:29 Polyethylene Glycol 3350 17 Gm Powd.Pack PO 17 gm BID KETAN Administration Simethicone 125 mg 02/10/25 13:00 02/14/25 09:28 Simethicone 125 Mg Chew Tab PO 125 mg QID KETAN Administration Sitagliptin Phosphate 100 mg 02/07/25 08:00 02/14/25 09:29 Sitagliptin Phosphate 100 Mg Tablet PO 100 mg DAILY@0800 KETAN Administration Tamsulosin HCl 0.4 mg 02/06/25 21:00 02/13/25 22:07 Tamsulosin Hcl 0.4 Mg Capsule PO 0.4 mg HS KETAN Administration Verapamil HCl 120 mg 02/06/25 13:51 02/14/25 09:29 Verapamil Hcl Er 120 Mg Tablet PO 03/09/25 13:39 120 mg DAILY@0800 KETAN Administration Radiology Results: ITS Impressions Abdomen/Pelvis CT 02/06/25 09:25 IMPRESSION: 1. Large amount of colonic stool particularly at the cecum consistent with constipation. No other acute intra-abdominal/pelvic process. 2. Small sliding-type hiatal hernia. 2. Bladder diverticulum which may be secondary to chronic outlet obstruction from the enlarged prostate. Chest X-Ray 02/06/25 14:18 IMPRESSION: 1: NO ACUTE CARDIOPULMONARY DISEASE. Abdomen X-Ray 02/12/25 11:36 IMPRESSION: Nonspecific, nonobstructive bowel gas pattern with mural thickening and fecal stasis in the colon. Barium Enema w/ Air Contrast, therapeutic 02/13/25 11:54 IMPRESSION: 1. Significant redundancy of the otherwise normal-appearing colon which demonstrates a tortuous course. Specifically no strictures, diverticula, polyps or other mucosal irregularities identified. Labs Labs: Laboratory Results - last 24 hr 02/13/25 02/13/25 02/14/25 16:55 19:49 07:30 POC Capillary Glucose 131 H 175 H 154 H 02/14/25 11:39 POC Capillary Glucose 84
--- NOTE | 2025-02-14 14:09 | P.DS_ITS ---
DS: Admitting Diagnosis Discharge Date 02/14/2025 Admitting Diagnosis ruq pain DS: Discharge Diagnosis Discharge Diagnosis (1) Constipation: Qualifiers: Constipation type: unspecified constipation type Qualified Code(s): K59.00 - Constipation, unspecified Code(s): K59.00 - Constipation, unspecified Status: Acute Assessment and Plan: * CT abdomen/Pelvis: large amount of colonic stool particularly at the cecum consistent with constipation. No other acute intra-abdominal/pelvic process. * 02/06 gave patient Miralax and Colace for constipation patient stats he is passing more gas but BM but pain is little better * 02/08 patient abdomen symptoms were worsening and manager women gave the patient Docusate Sodium enema, he had very small BM * 02/10 patient did have little BM hard stool * increased Reglan to 10mg IV and dulcolax supp * 02/12 colonoscopy prep, patient taken the prep without significant BM * 02/13 Sigmoidoscopy * GI to continue following * ok to dc today (2) Abdominal pain, acute, right upper quadrant: Code(s): R10.11 - Right upper quadrant pain Status: Acute Assessment and Plan: * Likely secondary to constipation * see above (3) Acute hyponatremia: Code(s): E87.1 - Hypo-osmolality and hyponatremia Status: Acute Assessment and Plan: * Upon admission, Na 129. Likely secondary to dehydration * NS IVF * 02/13: 131 * ok to dc DS: Summary Hospital Course Hospital Course: pt had ct abdomen pt had sigmoidoscopy and barium enema no lesions ok to dc with linzess and more fiber as per gi md Status at Discharge Cognitive/behavioral status at discharge: stable Time Spent with Patient Time attestation: Total time spent providing and/or coordinating discharge services:55 minutes on day of dc Exam Narrative: Patient is comfortable, NAD HEENT: eyes are clear and none icteric LUNGS:CTA HEART: RR S1S2 ABD: BS+, Soft and tender in RUQ and right lower ribs. Lower extremities: no edema SKIN: nonjaundiced Neuro: grossly intact. DS: Data Data Completed and Pending Labs on day of discharge: Labs from last 24 hours 02/14/25 02/14/25 02/13/25 11:39 07:30 19:49 POC Capillary Glucose 84 154 H 175 H 05/30/25 16:55 POC Capillary Glucose 131 H Discharge Plan Discharge Attending physician on discharge: Leena Mahajan Consulting providers: Varghese Ignacio; Fabian Cordova; Dung Miller; Jose Hussein; Charo Henao Discharging Clinician: Leena Mahajan Anticipated Discharge Date/Time: 02/14/25 14:06 Patient Disposition: Home Activity: as tolerated Diet: high fiber Discharge Instructions: good bowel regime Patient Instructions: Antibiotic Form Patient Language: Israeli Stand Alone Forms: General Discharge Information Follow-up/Referrals: Carley,Juan Bailey M.D. [Primary Care Provider] - Fabian Cordova MD [Physician] - Discharge Medications: New polyethylene glycol 3350 [Miralax] 17 gram Powder In Packet 17 g PO BID Qty: 30 0RF simethicone [Gas-X Extra Strength] 125 mg Capsule 125 mg PO QID Qty: 30 0RF docusate sodium 100 mg Capsule 100 mg PO Q12H PRN (Reason: Constipation) Qty: 60 0RF lactulose 10 gram/15 mL Solution 20 g PO QAM PRN (Reason: Constipation) Qty: 100 0RF Continued benazepril 20 mg tablet 20 mg PO DAILY glipizide 5 mg tablet 5 mg PO BID verapamil 120 mg tablet extended release 120 mg PO DAILY@0800 metformin 500 mg tablet 1,000 mg PO BID Rx Instructions: 1000mg am 500mg PM tamsulosin 0.4 mg capsule 0.4 mg PO .night omeprazole 20 mg capsule,delayed release(DR/EC) 20 mg PO .night PRN (Reason: as needed) Januvia 100 mg tablet 100 mg PO DAILY@0800 aspirin 81 mg tablet 81 mg PO DAILY Rx Instructions: AM Linzess 145 mcg capsule 145 mcg PO QAM Qty: 30 5RF Date of admission: 02/09/25 15:16 Primary Care Provider: CarleyJuan Admitting Provider: Bruno Oviedo Attending physician on admission: Leena Mahajan Condition: Stable
== END 2025-02-14 14:55 | disposition home or self-care (01) | DRG 74 ==
LOC: ANHED 10:53 → ANH3MEDSUR 12:27
PROVIDERS: Internal Medicine Gastroenterology; Nurse Practitioner Family; Admitting Provider Family Medicine; Emergency Provider Emergency Medicine; PCP Family Medicine; Visit Provider Family Medicine
PROC: 0DJD8ZZ Inspection of Lower Intestinal Tract, Via Natural or Artificial Opening Endoscopic (ICD-10-PCS; CPT 45330; principal; 2025-02-13 07:30)
DX: E11.43 Type 2 diabetes mellitus with diabetic autonomic (poly)neuropathy (principal); E87.1 Hypo-osmolality and hyponatremia; K59.00 Constipation, unspecified; K31.84 Gastroparesis; Z79.84 Long term (current) use of oral hypoglycemic drugs; Z79.82 Long term (current) use of aspirin
CPT/HCPCS: 36415; 71045; 74018; 74177; 74280; 80048; 80053; 81001; 82948; 83036; 83690; 83735; 84436; 84443; 85025; 85027; 96361; 96374; 96375; 99285; A9270; G0378; J1885; J2003; J2270; J2405; J2704; J2765; J7030; J7120; J7121; Q9967